=== PATIENT | female | born 2000 | race Caucasian/White ===

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

== ENCOUNTER 2020-04-28 15:10 | Emergency (ER) | payer OTHER, SELFPAY ==
[~2020-04-28] VITALS: Ht 167.6 cm; Wt 114.4 kg
[2020-04-28 15:10] VITALS: BP 133/83
[~2020-04-28 15:10] MED LIST changes: +ZOLO25TA PO
--- OUTSIDE RECORDS SUMMARY | 2020-04-28 15:17 | CCD ---
Author Author Adrian AJ (6.0)[facility] Address Unknown Phone Unavailable Care Team Providers Care Coil Maker Name Role Phone REJI OTT Unavailable Unavailable NONE, NONE Unavailable Unavailable AgnesfaheemvickeyJosueen Unavailable Allergies and Adverse Reactions Allergen Qualifier Severity Reaction(s) Comments Nystatin Problems Problem Onset Date Resolved Date Status Comments Active Hospital Admission Diagnosis Admission Diagnosis Onset Date Resolved Date Status Comment s No information available Medications Home Medications Details No information available Medications Administered Medication Orders Details Zofran ODT Oral 4 mg Ketorolac Tromethamine Intramuscular 30 mg Administered Medications Route Dose Bolus/Duration Rate/Du ration Additive/Diluents/Constituents Location Comments Date/Time Zofran ODT Oral PO 4 mg Given: 02/10/2020 00:43 Ketorolac Tromethamine Intramuscular IM 30 mg Given: 02/10/2020 00:44 Hospital Discharge Medications Hospital Discharge Prescribed Medication ondansetron 4 mg disintegrating tablet T gibran 1 tablet three times a day as needed for 5 days -- as needed for nausea. Dispense 15 tablet. Refills: 0. Substitution permitted. Procedures Procedure Date Performed Comments Injection Ketorolac [IM] Feb 09, 2020 Functional Status Functional and Cognitive Assessment Documentation Date Cond ition Status No impairments noted 02/09/2020 Active Immunizations Medication Dose/Units Lot# Exp. Date Property Underwriter Name Given No information available Results ELECTROCARDIOGRAM-EMERGENCY DEPT (MsgRcvd 02/09/2020 23:48) Final Results Test Result Flag Reference Range Vent Rate: 89 bpm RR Interval: 674 msec DE Interval: 122 msec QRS Duration: 86 msec QT Interval: 371 msec QTC Interval: 452 msec P-R-T [place]: 15 - 28 - 43 degrees Sinus rhythm...normal P axis, V-rate 50- 99 Low voltage, precordial leads...precordial leads <1.0mV Normal axis. Normal intervals. No sig. ST changes. Study Date: Electronically Signed By: REJI OTT DO Date: 02/09/2020 23:47 URINALYSIS (W/C+S IF INDICATED) ([place]: 02/09/2020 22:40) [place] [place] Final Results Test Result Flag Reference Range URINE COLOR YELLOW YELLOW URINE APPEARANCE CLOUDY AB CLEAR URINE SPECIFIC GRAVITY 1.010 1.003-1.0 35 URINE LEUKOCYTES NEGATIVE NEGATIVE URINE NITRITE NEGATIVE NEGATIVE URINE PH 7.5 5.0-8.0 URINE PROTEIN NEGATIVE NEGATIVE mg/dl URINE GLUCOSE NEGATIVE NEGATIVE mg/dl URINE KETONES NEGATIVE NEGATIVE mg/dl URINE UROBILINOGEN 0.2 NORMAL OR <1 mg/dl URINE BILIRUBIN NEGATIVE NEGATIVE URINE OCCULT BLOOD NEGATIVE NEGATIVE AMORPHOUS PRECIPITATES 3+ AB NEGATIVE hpf EPITHELIAL CELLS 0-1 0-5 hpf MUCOUS THREADS 1+ AB NEGATIVE hpf URINE C+S IF INDICATED PERFORMED NOT INDICATED , URINE (NEIDA: 02/09/2020 23:39) ([facility] [place] 02/09/2020 23:57) Final Results Test Result Flag Reference Range , URINE NEGATIVE NEGATIVE COMPREHENSIVE W/RATIOS (NEIDA: 02/09/2020 22:59) ([facility] [place] 02/09/2020 23:21) Final Results Test Result Flag Reference Range GLUCOSE 117 H 70-100 mg/dl BUN 11 4-18 mg/dl CREATININE, SERUM 0.57 L 0.60-1.20 mg/d l SODIUM 139 136-146 mmol/l POTASSIUM 4.1 3.5-5.3 mmol/l CHLORIDE 106 96-109 mmol/l CARBON DIOXIDE 25 20-32 mmol/l ALBUMIN 4.0 3.5-5.0 g/dl PROTEIN, TOTAL 6.9 6.3-8.6 g/dl CALCIUM 9.3 8.9-10.7 mg/dl ALKALINE PHOSPHATASE 89 50-130 U/l SGOT (AST) 13 5-30 U/l SGPT (ALT) 12 5-35 U/l BILIRUBIN, TOTAL 0.15 L 0.30-1.20 mg/dl BUN/CREATININE RATIO 19.3 6.0-20.0 GLOBULIN 2.9 2.3-3.5 g/dl ANION GAP 8.0 7.0-16.0 mmol/l OSMOLALITY (CALCULATED) 278 L 280-300 mos/kg A/G RATIO 1.4 1.0-2.0 LIPASE (NEIDA: 02/09/2020 22:59) [place] [place]:21[place] Final Results Test Result Flag Reference Range LIPASE 21 1-64 U/L EGFR (CALCULATED) (NEIDA: 02/09/2020 22:59) [place] [place]:21) Final Results Test Result Flag Reference Range EGFR 134 >59 mL/min/1.73m2 EGFR, -BHUTANESE 156 >59 mL/min/1.73m2 Note: Persistent reduction for 3 months or more in an eGFR <60 mL/min/1.73m2 defines CKD. Patients with eGFR values >=60 mL/min/1.73m2 may also have CKD if evidence of persistent proteinuria is present. Additional information may be found at www.kidney.org/professionals/kdoqi. RBC MORPHOLOGY SCAN (NEIDA: 02/09/2020 22:59) [place] [place] 23:24[place] Final Results Test Result Flag Reference Range RBC MORPHOLOGY SCAN PERFORMED CBC (NEIDA: 02/09/2020 22:59) [place] [place] 23:25) Final Results Test Result Flag Reference Range WBC 10.4 4.3-10.9 x10E3/u L RBC 5.14 3.80-5.30 x10E6/ uL HEMOGLOBIN 11.6 L 11.8-15.8 g/dl HEMATOCRIT 37.8 35.0-47.0 % MCV 73.5 L 82.0-98.0 fl MCH 22.6 L 27.5-33.5 pg MCHC 30.7 L 32.0-36.0 g/dl RDW 16.3 H 11.5-14.5 % PLATELET COUNT 323 (Slide estimate appears adequate) 130-400 x10E 3/uL MPV 9.1 8.6-12.6 fl SEGMENTED NEUTROPHILS 67.0 44.0-74.0 % BAND 0.0 0.0-4.0 % LYMPHOCYTES 27.0 15.0-45.0 % MONOCYTES 5.0 2.0-13.0 % EOSINOPHILS 1.0 0.0-6.0 % BASOPHILS 0.0 0.0-2.0 % NEUTROPHIL ABSOLUTE 7.0 1.4-7.0 x10 E3/uL LYMPHOCYTES ABSOLUTE 2.8 1.0-3.4 x10 E3/uL MONOCYTE ABSOLUTE 0.5 0.2-1.0 x10 E3/uL EOSINOPHIL ABSOLUTE 0.1 0.0-0.5 x10 E3/uL BASOPHIL ABSOLUTE 0.0 0.0-0.2 x10 E3/uL ANISOCYTOSIS 1+ AB OVALOCYTOSIS 1+ 1+ 1+ 1+ AB CT ABD & PELVIS W/O IV CONTRAST NO ORAL CONTRAST (MsgRcvd 02/09/2020 23:05) New Order Test Result Flag Reference Range US PELVIC TRANSVAGINAL (MsgRcvd 02/09/2020 23:56) Final Results Test Result Flag Reference Range PELVIC SONOGRAM Clinical History: Pelvic pain Technique: Transvaginal transverse abdominal pelvic ultrasound performed. Comparison: None. Quality assessment: Acceptable. Measurements: The uterus measures: 8.8 x 6 x 4.7 CM Right ovary measures: 3.5 x 2.5 cm Left ovary measures: 3 x 2 x 1.5 cm Endometrium: 15 mm FINDINGS: Blood flow seen to both ovaries Uterus: The uterus is homogeneous in echotexture and otherwise unremarkable Endometrium: The endometrial stripe is not thickened. Adnexa: There is no adnexal mass. Fluid: small to moderate amount of cul-de-sac fluid IMPRESSION: FREE FLUID IN THE PELVIC CUL-DE-SAC. Blood flow seen to both ovaries. Uterus and ovaries otherwise unremarkable. No evidence of mass Electronically Signed By: AFTAB SAEED MD Date: 02/09/2020 23:55 Social History Social History Element Description Effective Dates Sex Female 2000 Smoking never smoker Unknown Vital Signs * Weight: 113.3 kg (250 lb) at 02/09/2020 10:21:00 PM * Height: 167.6 cm (66 inches) at 02/09/2020 10:21:00 PM * BMI (Body Mass Index): 40.3 kg/m2 at 02/09/2020 10:21:00 PM Date/Time Blood Pressure Heart Rate Respiratory Rate Temperature O2 Saturation 02/10/2020 1:20:00 AM 115/89 mmHg 88 /minute 18 /minute 36.83 C 97% 02/10/2020 12:17:00 AM 36.83 C 02/09/2020 10:21:00 PM 118/74 mmHg 80 /minute 18 /minute 37.56 C 10 0% Hospital Discharge Instructions Instruction Thank you for visiting the [facility]. You have been evaluated today by REJI OTT DO for the following condition(s): Chronic right lower quadrant and left lower quadrant abdominal pain. The following test(s) and/or procedure(s) were performed during your visit today. Laboratory Tests CBC w DiffUrinalysis, Culture if indicatedComprehensive PanelLipasePregnancy Urine Qual Diagnostic Studies CT ABD/PEL w/o IV w/o Oral ContrastUS Pelvic TransvaginalCT abdomenCT pelvisEKG INSTRUCTIONS Prescription Medications: ondansetron 4 mg disintegrating tablet Take 1 tablet three times a day as needed for 5 days -- as needed for nausea. Dispense 15 tablet. Refills: 0. Substitution permitted. Pharmacy - [id number] - [address], [place] [id number]. . OTC Medications: Take ibuprofen (such as Advil, Motrin or Nuprin) according to label instructions. Available over the counter. Understanding of the discharge instructions verbalized by patient. Follow-up with: Asuncion Wilson M.D., OBN, , [facility], [address] [place] [address], [id number] Follow up in two days if not better. Reason for referral: evaluation. ADDITIONAL INFORMATION Unknown Causes of Abdominal Pain(Female) The exact cause of your belly (abdominal) pain is not clear. This does not mean that this is something to worry about. Everyone likes to know the exact cause of the problem. But sometimes with belly pain, there is no clear-cut cause, and this could be a good thing. The good news is that your symptoms can be treated, and you will feel better. Your condition does not seem serious now. But sometimes the signs of a serious problem may take more time to appear. For this reason,it is important for you to watch for any new symptoms, problems,or worsening of your condition. Over the next few days, the abdominal pain may come and go. Or it may be constant. Other common symptoms can include nausea and vomiting. Sometimes it can be difficult to tell if you feel nauseous. You may just feel bad and not connect that feeling to nausea. Constipation, diarrhea, and a fever may go along with the pain. The pain may continue even if treated correctly over the following days. Depending on how things go, sometimes the cause can become clear and may need moreor different treatment. Additional evaluations, medicines, or tests may also be needed. Home careYour healthcare provider may prescribe medicine for pain, symptoms, or an infection. Follow the healthcare provider's instructions for taking these medicines. General careRest as much as you can until your next exam. No strenuous activities.Try to find positions that ease discomfort. A small pillow placed on the abdomen may help relieve pain.Something warm on your abdomen (such as a heating pad) may help, but be careful not to burn yourself. DietDon'tforce yourself to eat, especially if having cramps, vomiting, or diarrhea.Water is important so you don't get dehydrated. Soup may also be good. Sports drinks may also help, especially if they are not too acidic. Don't drink sugary drinks as this can make things worse. Take liquids in small amounts. Don'tguzzle them.Caffeine sometimes makes the pain and cramping worse.Don't takedairy products if you have vomiting or diarrhea.Don't eat large amounts at a time. Wait a few minutes between bites.Eat a diet low in fiber (called a low- residue diet). Foods allowed include refined breads, white rice, fruit and vegetable juices without pulp, tender meats. These foods will pass more easily through the intestine.Don't havewhole-grain foods, whole fruits and vegetables, meats, seeds and nuts, fried or fatty foods, dairy, alcohol and spicy foods until your symptoms go away. Follow-up careFollow up with your healthcare provider, or as advised, if your pain does not begin to improve in the next 24 hours. Call [phone] if any of these occur: Trouble breathingConfusionFainting or loss of consciousnessRapid heart rateSeizure When to seek medical adviceCall your healthcare provider right away if any of these occur: Pain gets worse or moves to the right lower abdomenNew or worsening vomiting or diarrheaSwelling of the abdomenUnable to pass stool for more than3 daysFever of 100.4F (38C) or higher, or as directed by your healthcare provider.Blood in vomit or bowel movements (dark red or black color)Yellow color of eyes and skin (jaundice)Weakness, dizzinessChest, arm, back, neck, or jaw painUnexpected vaginal bleeding or missed periodCan't keep down liquids or water and you are getting dehydrated [id number] [employer]. [address] [place] [id number]. All rights reserved. This information is not intended as a substitute for professional medical care. Always follow your healthcare professional's instructions. Hospital Discharge Diagnoses Diagnosis Onset Date Resolved Date Status Comments Abdominal Pain Active Reason For Visit ABD PAIN Reason For Referral None Health Concerns Section Concern Status No information available Medical Equipments Implanted Device Manufacturing Date Expiration Date No information available Assessments Assessment You have been evaluated by JENA OTT, DO for the following conditions: Chronic right lower quadrant and left lower quadrant abdominal pain. The following test(s) and/or procedure(s) were performed during your visit today. Laboratory Tests: CBC w Diff, Comprehensive Panel, Lipase, Urine Qual, and Urinalysis, Culture if indicated Diagnostic Studies: CT ABD/PEL w/o IV w/o Oral Contrast, CT abdomen, CT pelvis, EKG, and US Pelvic Transvaginal Goals Observation Goal Status No information available Treatment Plan Planned Care Start Date No information available Encounters Encounter Diagnosis Location Date Abdominal Pain [facility] 02/09/2020
--- OUTSIDE RECORDS SUMMARY | 2020-04-28 15:19 | CCD ---
Author Author [facility] Organization [facility] Address Unknown Phone Unavailable Care Team Providers Care Comedian Name Role Phone GONZALEZ, JESS Unavailable Unavailable LUZ MARIA CONTI MD Unavailable Unavailable LUZ MARIA CONTI MD Unavailable Unavailable GALLITO, LUZ MARIA MD Unavailable Unavailable GALLITO, LUZ MARIA MD Unavailable Unavailable GALLITO, LUZ MARIA MD Unavailable Unavailable GALLITO, LUZ MARIA MD Unavailable Unavailable GALLITO, LUZ MARIA MD Unavailable Unavailable GALLITO, LUZ MARIA MD Unavailable Unavailable GALLITO, LUZ MARIA MD Unavailable Unavailable GALLITO, LUZ MARIA MD Unavailable Unavailable GALLITO, LUZ MARIA MD Unavailable Unavailable GALLITO, LUZ MARIA MD Unavailable Unavailable GALLITO, LU ZMARIA MD Unavailable Unavailable GALLITO, LUZ MARIA MD Unavailable Unavailable GALLITO, LUZ MARIA MD Unavailable Unavailable GALLITO, LUZ MARIA MD Unavailable Unavailable GALLITO, LUZ MARIA MD Unavailable Unavailable GALLITO, LUZ MARIA MD Unavailable Unavailable GALLITO, LUZ MARIA MD Unavailable Unavailable GALLITO, LUZ MARIA MD Unavailable Unavailable GALLITO, LUZ MARIA MD Unavailable Unavailable GALLITO, LUZ MARIA MD Unavailable Unavailable GALLITO, LUZ MARIA MD Unavailable Unavailable GALLITO, LUZ MARIA MD Unavailable Unavailable GALLITO, LUZ MARIA MD Unavailable Unavailable GALLITO, LUZ MARIA MD Unavailable Unavailable GALLITO, LUZ MARIA MD Unavailable Unavailable GALLITO, LUZ MARIA MD Unavailable Unavailable GALLITO, LUZ MARIA MD Unavailable Unavailable GALLITO, LUZ MARAI MD Unavailable Unavailable GALLITO, LUZ MARIA MD Unavailable Unavailable GALLITO, LUZ MARIA MD Unavailable Unavailable GALLITO, LUZ MARIA MD Unavailable Unavailable GALLITO, LUZ MARIA MD Unavailable Unavailable GALLITO, LUZ MARIA MD Unavailable Unavailable GALLITO, LUZ MARIA MD Unavailable Unavailable GALLITO, LUZ MARIA MD Unavailable Unavailable GALLITO, LUZ MARIA MD Unavailable Unavailable LERUM, EDY SALES ASSOCIATE FISHING Unavailable Unavailable LERUM, EDY SALES ASSOCIATE FISHING Unavailable Unavailable LERUM, EDY SALES ASSOCIATE FISHING Unavailable Unavailable LERUM, EDY SALES ASSOCIATE FISHING Unavailable Unavailable LERUM, EDY SALES ASSOCIATE FISHING Unavailable Unavailable LERUM, EDY SALES ASSOCIATE FISHING Unavailable Unavailable LERUM, EDY SALES ASSOCIATE FISHING Unavailable Unavailable LERUM, EDY SALES ASSOCIATE FISHING Unavailable Unavailable LERUM, EDY SALES ASSOCIATE FISHING Unavailable Unavailable LERUM, EDY SALES ASSOCIATE FISHING Unavailable Unavailable LERUM, EDY SALES ASSOCIATE FISHING Unavailable Unavailable LERUM, EDY SALES ASSOCIATE FISHING Unavailable Unavailable LERUM, EDY SALES ASSOCIATE FISHING Unavailable Unavailable LERUM, EDY SALES ASSOCIATE FISHING Unavailable Unavailable LERUM, EDY SALES ASSOCIATE FISHING Unavailable Unavailable LERUM, EDY SALES ASSOCIATE FISHING Unavailable Unavailable LERUM, EDY SALES ASSOCIATE FISHING Unavailable Unavailable LERUM, EDY SALES ASSOCIATE FISHING Unavailable Unavailable Shambo, J Elisa PA Unavailable Unavailable Shambo, J Elisa PA Unavailable Unavailable Shambo, J Elisa PA Unavailable Unavailable Shambo, J Elisa PA Unavailable Unavailable Shambo, J Elisa PA Unavailable Unavailable Shambo, J Elisa PA Unavailable Unavailable Shambo, J Elisa PA Unavailable Unavailable Shambo, J Elisa PA Unavailable Unavailable Shambo, J Elisa PA Unavailable Unavailable Shambo, J Elisa PA Unavailable Unavailable Shambo, J Elisa PA Unavailable Unavailable Shambo, J Elisa PA Unavailable Unavailable Shambo, J Elisa PA Unavailable Unavailable Shambo, J Elisa PA Unavailable Unavailable Shambo, J Elisa PA Unavailable Unavailable Shambo, J Elisa PA Unavailable Unavailable Shambo, J Elisa PA Unavailable Unavailable Shambo, J Elisa PA Unavailable Unavailable Shambo, J Elisa PA Unavailable Unavailable Shambo, J Elisa PA Unavailable Unavailable Shambo, J Elisa PA Unavailable Unavailable Shambo, J Elisa PA Unavailable Unavailable Shambo, J Elisa PA Unavailable Unavailable Shambo, J Elisa PA Unavailable Unavailable CUCA PRADO MD Unavailable Unavailable CUCA PRADO MD Unavailable Unavailable CUCA PRADO MD Unavailable Unavailable CUCA PRADO MD Unavailable Unavailable CUCA PRADO MD Unavailable Unavailable CUCA PRADO MD Unavailable Unavailable CUCA PRADO MD Unavailable Unavailable CUCA PRADO MD Unavailable Unavailable CUCA PRADO MD Unavailable Unavailable CUCA PRADO MD Unavailable Unavailable CUCA PRADO MD Unavailable Unavailable CUCA PRADO MD Unavailable Unavailable CUCA PRADO MD Unavailable Unavailable CUCA PRADO MD Unavailable Unavailable CUCA PRADO MD Unavailable Unavailable CUCA PRADO MD Unavailable Unavailable CUCA PRADO MD Unavailable Unavailable CUCA PRADO MD Unavailable Unavailable CUCA PRADO MD Unavailable Unavailable CUCA PRADO MD Unavailable Unavailable CUCA PRADO MD Unavailable Unavailable CUCA PRADO MD Unavailable Unavailable CUCA PRADO MD Unavailable Unavailable CUCA PRADO MD Unavailable Unavailable CUCA PRADO MD Unavailable Unavailable CUCA PRADO MD Unavailable Unavailable CUCA PRADO MD Unavailable Unavailable CUCA PRADO MD Unavailable Unavailable CUCA PRADO MD Unavailable Unavailable CUCA PRADO MD Unavailable Unavailable CUCA PRADO MD Unavailable Unavailable CUCA PRADO MD Unavailable Unavailable CUCA PRADO MD Unavailable Unavailable CUCA PRADO MD Unavailable Unavailable CUCA PRADO MD Unavailable Unavailable CUCA PRADO MD Unavailable Unavailable CUCA PRADO MD Unavailable Unavailable ALIASES , ORGANIZATION NPI Unavailable Unavailable ALIASES , ORGANIZATION NPI Unavailable Unavailable ALIASES , ORGANIZATION NPI Unavailable Unavailable ALIASES , ORGANIZATION NPI Unavailable Unavailable ALIASES , ORGANIZATION NPI Unavailable Unavailable ALIASES , ORGANIZATION NPI Unavailable Unavailable ALIASES , ORGANIZATION NPI Unavailable Unavailable ALIASES , ORGANIZATION NPI Unavailable Unavailable ALIASES , ORGANIZATION NPI Unavailable Unavailable ALIASES , ORGANIZATION NPI Unavailable Unavailable ALIASES , ORGANIZATION NPI Unavailable Unavailable ALIASES , ORGANIZATION NPI Unavailable Unavailable ALIASES , ORGANIZATION NPI Unavailable Unavailable ALIASES , ORGANIZATION NPI Unavailable Unavailable ALIASES , ORGANIZATION NPI Unavailable Unavailable ALIASES , ORGANIZATION NPI Unavailable Unavailable ALIASES , ORGANIZATION NPI Unavailable Unavailable ALIASES , ORGANIZATION NPI Unavailable Unavailable ALIASES , ORGANIZATION NPI Unavailable Unavailable ALIASES , ORGANIZATION NPI Unavailable Unavailable ALIASES , ORGANIZATION NPI Unavailable Unavailable ALIASES , ORGANIZATION NPI Unavailable Unavailable ALIASES , ORGANIZATION NPI Unavailable Unavailable ALIASES , ORGANIZATION NPI Unavailable Unavailable KAYLYN GARCIA MD ON NONE Unavailable Unavailable MD REJI GALVEZ DO Unavailable Unavailable AKCUCA Templeton MD Unavailable Unavailable AKCUCA Templeton MD Unavailable Unavailable AKCUCA Templeton MD Unavailable Unavailable AKCUCA Templeton MD Unavailable Unavailable AKCUCA Templeton MD Unavailable Unavailable AKCUCA Templeton MD Unavailable Unavailable AKCUCA Templeton MD Unavailable Unavailable AKCUCA Templeton MD Unavailable Unavailable AKCUCA Templeton MD Unavailable Unavailable AKCUCA Templeton MD Unavailable Unavailable AKCUAC Templeton MD Unavailable Unavailable AKCUCA Templeton MD Unavailable Unavailable AKCUCA Templeton MD Unavailable Unavailable AKCUCA Templeton MD Unavailable Unavailable AKCUCA Templeton MD Unavailable Unavailable AKCUCA Templeton MD Unavailable Unavailable AKCUCA Templeton MD Unavailable Unavailable AKCUCA Templeton MD Unavailable Unavailable AKCUCA Templeton MD Unavailable Unavailable AKCUCA Templeton MD Unavailable Unavailable AKCUCA Templeton MD Unavailable Unavailable AKCUCA Templeton MD Unavailable Unavailable AKCUCA Templeton MD Unavailable Unavailable AKCUCA Templeton MD Unavailable Unavailable AKCUCA Templeton MD Unavailable Unavailable CUCA PRADO MD Unavailable Unavailable CUCA PRADO MD Unavailable Unavailable CUCA PRADO MD Unavailable Unavailable CUCA PRADO MD Unavailable Unavailable CUCA PRADO MD Unavailable Unavailable CUCA PRADO MD Unavailable Unavailable CUCA PRADO MD Unavailable Unavailable CUCA PRADO MD Unavailable Unavailable CUCA PRADO MD Unavailable Unavailable CUCA PRADO MD Unavailable Unavailable CUCA PRADO MD Unavailable Unavailable CUCA PRADO MD Unavailable Unavailable Tyrell GARRETT MD Unavailable Unavailable Tyrell GARRETT MD Unavailable Unavailable Tyrell GARRETT MD Unavailable Unavailable Tyrell GARRETT MD Unavailable Unavailable Tyrell GARRETT MD Unavailable Unavailable Tyrell GARRETT MD Unavailable Unavailable Tyrell GARRETT MD Unavailable Unavailable Tyrell GARRETT MD Unavailable Unavailable Tyrell GARRETT MD Unavailable Unavailable Tyrell GARRETT MD Unavailable Unavailable Tyrell GARRETT MD Unavailable Unavailable Tyrell GARRETT MD Unavailable Unavailable Tyrell GARRETT MD Unavailable Unavailable Tyrell GARRETT MD Unavailable Unavailable Tyrell GARRETT MD Unavailable Unavailable SAMUEL, M NARGIS SALES ASSOCIATE FISHING Unavailable Unavailable SAMUEL, M NARGIS SALES ASSOCIATE FISHING Unavailable Unavailable SAMUEL, M NARGIS SALES ASSOCIATE FISHING Unavailable Unavailable SAMUEL, M NARGIS SALES ASSOCIATE FISHING Unavailable Unavailable SAMUEL, M NARGIS SALES ASSOCIATE FISHING Unavailable Unavailable SAMUEL, M NARGIS SALES ASSOCIATE FISHING Unavailable Unavailable SAMUEL, M NARGIS SALES ASSOCIATE FISHING Unavailable Unavailable SAMUEL, M NARGIS SALES ASSOCIATE FISHING Unavailable Unavailable SAMUEL, M NARGIS SALES ASSOCIATE FISHING Unavailable Unavailable SAMUEL, M NARGIS SALES ASSOCIATE FISHING Unavailable Unavailable SAMUEL, M NARGIS SALES ASSOCIATE FISHING Unavailable Unavailable SAMUEL, M NARGIS SALES ASSOCIATE FISHING Unavailable Unavailable SAMUEL, M NARGIS SALES ASSOCIATE FISHING Unavailable Unavailable SAMUEL, M NARGIS SALES ASSOCIATE FISHING Unavailable Unavailable SAMUEL, M NARGIS SALES ASSOCIATE FISHING Unavailable Unavailable SAMUEL, M NARGIS SALES ASSOCIATE FISHING Unavailable Unavailable SAMUEL, M NARGIS SALES ASSOCIATE FISHING Unavailable Unavailable SAMUEL, M NARGIS SALES ASSOCIATE FISHING Unavailable Unavailable SAMUEL, M NARGIS SALES ASSOCIATE FISHING Unavailable Unavailable SAMUEL, M NARGIS SALES ASSOCIATE FISHING Unavailable Unavailable SAMUEL, M NARGIS SALES ASSOCIATE FISHING Unavailable Unavailable SAMUEL, M NARGIS SALES ASSOCIATE FISHING Unavailable Unavailable SAMUEL, M NARGIS SALES ASSOCIATE FISHING Unavailable Unavailable GIUSTRA, Esteban WRIGHT MD Unavailable Unavailable GIUSTRA, Esteban WRIGHT MD Unavailable Unavailable GIUSTRA, Esteban WRIGHT MD Unavailable Unavailable GIUSTRA, Esteban WRIGHT MD Unavailable Unavailable GIUSTRA, Esteban WRIGHT MD Unavailable Unavailable GIUSTRA, Esteban WRIGHT MD Unavailable Unavailable GIUSTRA, Esteban WRIGHT MD Unavailable Unavailable GIUSTRA, Esteban WRIGHT MD Unavailable Unavailable GIUSTRA, Esteban WRIGHT MD Unavailable Unavailable GIUSTRA, Esteban WRIGHT MD Unavailable Unavailable GIUSTRA, Esteban WRIGHT MD Unavailable Unavailable GIUSTRA, Esteban WRIGHT MD Unavailable Unavailable GIUSTRA, Esteban WRIGHT MD Unavailable Unavailable GIUSTRA, Esteban WRIGHT MD Unavailable Unavailable GIUSTRA, Esteban WRIGHT MD Unavailable Unavailable GIUSTRA, Esteban WRIGHT MD Unavailable Unavailable GIUSTRA, Esteban WRIGHT MD Unavailable Unavailable GIUSTRA, Esteban WRIGHT MD Unavailable Unavailable GIUSTRA, Esteban WRIGHT MD Unavailable Unavailable GIUSTRA, Esteban WRIGHT MD Unavailable Unavailable GIUSTRA, Esteban WRIGHT MD Unavailable Unavailable GIUSTRA, Esteban WRIGHT MD Unavailable Unavailable GIUSTRA, Esteban WRIGHT MD Unavailable Unavailable GIUSTRA, Esteban WRIGHT MD Unavailable Unavailable GIUSTRA, Esteban WRIGHT MD Unavailable Unavailable GIUSTRA, Esteban WRIGHT MD Unavailable Unavailable GIUSTRA, Esteban WRIGHT MD Unavailable Unavailable GIUSTRA, Esteban WRIGHT MD Unavailable Unavailable GIUSTRA, Esteban WRIGHT MD Unavailable Unavailable GIUSTRA, Esteban WRIGHT MD Unavailable Unavailable GIUSTRA, Esteban WRIGHT MD Unavailable Unavailable GIUSTRA, Esteban WRIGHT MD Unavailable Unavailable GIUSTRA, Esteban WRIGHT MD Unavailable Unavailable GIUSTRA, Esteban WRIGHT MD Unavailable Unavailable GIUSTRA, Esteban WRIGHT MD Unavailable Unavailable GIUSTRA, Esteban WRIGHT MD Unavailable Unavailable GIUSTRA, Esteban WRIGHT MD Unavailable Unavailable GIUSTRA, Esteban WRIGHT MD Unavailable Unavailable GIUSTRA, Esteban WRIGHT MD Unavailable Unavailable GIUSTRA, Esteban WRIGHT MD Unavailable Unavailable GIUSTRA, Esteban WRIGHT MD Unavailable Unavailable GIUSTRA, Esteban WRIGHT MD Unavailable Unavailable GIUSTRA, Esteban WRIGHT MD Unavailable Unavailable GIUSTRA, Esteban WRIGHT MD Unavailable Unavailable GIUSTRA, Esteban WRIGHT MD Unavailable Unavailable GIUSTRA, Esteban WRIGHT MD Unavailable Unavailable GIUSTRA, Esteban WRIGHT MD Unavailable Unavailable GIUSTRA, Esteban WRIGHT MD Unavailable Unavailable GIUSTRA, Esteban WRIGHT MD Unavailable Unavailable Birchenough, R Cecilia DO Unavailable Unavailable Birchenough, R Cecilia DO Unavailable Unavailable Birchenough, R Cecilia DO Unavailable Unavailable Birchenough, R Cecilia DO Unavailable Unavailable Birchenough, R Cecilia DO Unavailable Unavailable Birchenough, R Cecilia DO Unavailable Unavailable Birchenough, R Cecilia DO Unavailable Unavailable Birchenough, R Cecilia DO Unavailable Unavailable Birchenough, R Cecilia DO Unavailable Unavailable Birchenough, R Cecilia DO Unavailable Unavailable Birchenough, R Cecilia DO Unavailable Unavailable Birchenough, R Cecilia DO Unavailable Unavailable Birchenough, R Cecilia DO Unavailable Unavailable Birchenough, R Cecilia DO Unavailable Unavailable MD HERMINIO BRYSON MD Unavailable Unavailable Shambo, J Elisa PA Unavailable Unavailable Shambo, J Elisa PA Unavailable Unavailable Shambo, J Elisa PA Unavailable Unavailable Shambo, J Elisa PA Unavailable Unavailable Shambo, J Elisa PA Unavailable Unavailable Shambo, J Elisa PA Unavailable Unavailable Shambo, J Elisa PA Unavailable Unavailable Shambo, J Elisa PA Unavailable Unavailable Shambo, J Elisa PA Unavailable Unavailable Shambo, J Elisa PA Unavailable Unavailable Shambo, J Elisa PA Unavailable Unavailable Shambo, J Elisa PA Unavailable Unavailable Shambo, J Elisa PA Unavailable Unavailable Shambo, J Elisa PA Unavailable Unavailable Shambo, J Elisa PA Unavailable Unavailable Shambo, J Elisa PA Unavailable Unavailable Shambo, J Elisa PA Unavailable Unavailable Shambo, J Elisa PA Unavailable Unavailable Shambo, J Elisa PA Unavailable Unavailable Shambo, J Elisa PA Unavailable Unavailable Shambo, J Elisa PA Unavailable Unavailable Shambo, J Elisa PA Unavailable Unavailable Shambo, J Elisa PA Unavailable Unavailable Shambo, J Elisa PA Unavailable Unavailable LERUM, EDY SALES ASSOCIATE FISHING Unavailable Unavailable LERUM, EDY SALES ASSOCIATE FISHING Unavailable Unavailable LERUM, EDY SALES ASSOCIATE FISHING Unavailable Unavailable LERUM, EDY SALES ASSOCIATE FISHING Unavailable Unavailable LERUM, EDY SALES ASSOCIATE FISHING Unavailable Unavailable LERUM, EDY SALES ASSOCIATE FISHING Unavailable Unavailable LERUM, EDY SALES ASSOCIATE FISHING Unavailable Unavailable LERUM, EDY SALES ASSOCIATE FISHING Unavailable Unavailable LERUM, EDY SALES ASSOCIATE FISHING Unavailable Unavailable LERUM, EDY SALES ASSOCIATE FISHING Unavailable Unavailable LERUM, EDY SALES ASSOCIATE FISHING Unavailable Unavailable LERUM, EDY SALES ASSOCIATE FISHING Unavailable Unavailable LERUM, EDY SALES ASSOCIATE FISHING Unavailable Unavailable LERUM, EDY SALES ASSOCIATE FISHING Unavailable Unavailable LERUM, EDY SALES ASSOCIATE FISHING Unavailable Unavailable LERUM, EDY SALES ASSOCIATE FISHING Unavailable Unavailable LERUM, EDY SALES ASSOCIATE FISHING Unavailable Unavailable LERUM, EDY SALES ASSOCIATE FISHING Unavailable Unavailable Re-disclosure Warning The records that you are about to access may contain information from federally-assisted alcohol or drug abuse programs. If such information is present, then the following federally mandated warning applies: This information has been disclosed to you from records protected by federal confidentiality rules (42 CFR part 2). The federal rules prohibit you from making any further disclosure of this information unless further disclosure is expressly permitted by the written consent of the person to whom it pertains or as otherwise permitted by 42 CFR part 2. A general authorization for the release of medical or other information is NOT sufficient for this purpose. The Federal rules restrict any use of the information to criminally investigate or prosecute any alcohol or drug abuse patient.The records that you are about to access may contain highly sensitive health information, the redisclosure of which is protected by Article 27-F of the [facility] Public Health law. If you continue you may have access to information: Regarding HIV / AIDS; Provided by facilities licensed or operated by the [facility] Office of Mental Health; or Provided by the [facility] Office for People With Developmental Disabilities. If such information is present, then the following [facility] mandated warning applies: This information has been disclosed to you from confidential records which are protected by state law. State law prohibits you from making any further disclosure of this information without the specific written consent of the person to whom it pertains, or as otherwise permitted by law. Any unauthorized further disclosure in violation of state law may result in a fine or skilled nursing sentence or both. A general authorization for the release of medical or other information is NOT sufficient authorization for further disc losure. Allergies and Adverse Reactions Type Description Substance Reaction Status Data Source(s ) Drug allergy Nystatin Nystatin [facility] DRUG INGREDI NYSTATIN NYSTATIN Rash [facility] No Known Environmental Allergies No Known Environmental Al lergies [facility] No Known Food Allergies No Known Food Allergies [facility] BRANDNAME NYSTATIN/TRIAMCINOLONE NYSTATIN/TRIAMCINOLONE [facility] Drug allergy nystatin nystatin [facility] Family History Family Member Name Family Member Gender Family Member Status Date o f Status Description Data Source(s) Unknown Female Problem [facility] ([facility]) Encounters Encounter Providers Location Date Indications Data Source(s ) Emergency Attender: MD REJI Hamilton: NONE NONE NPAdmitter: MD REJI GALVEZ DOConsultant: NONE NONE SALES ASSOCIATE FISHING OP-EMERGENCY DEPARTMENT 02/09/20 10:18:00 PM EST - 02/10/2020 01:35:00 AM EST [facility] Patient discharged. Outpatient Attender: NARGIS BAKER NP [facility] 02:15:00 PM EDT [facility] ([facility]) Outpatient Attender: ORGANIZATION N PI ALIASES Admitter: ORGANIZATION NPI ALIASES OP-OB 11/26/2019 01:58: 00 PM EDT - 11/26/2019 11:59:00 PM EDT [facility] Patient discharged. Outpatient Attender: ORGANIZATION N PI ALIASES Admitter: ORGANIZATION NPI ALIASES OP-OB 11/10/2019 01:28: 00 PM EDT - 11/10/2019 11:59:00 PM EDT [facility] Patient discharged. Inpatient Attender: ADRIANA WILSON MDAdmitter: ADRIANA PAZ MD OP-4S 09/26/2019 12:00:00 AM EDT - 09/28/2019 05:30:00 PM EDT [facility] Patient discharged. Outpatient Attender: NARGIS BAKER NP [facility] 01:45:00 PM EDT [facility] ([facility]) Outpatient Attender: CUCA PRADO MD [facility] 09/07 11:00:00 AM EDT [facility] ([facility]) Outpatient Attender: LUZ MARIA CONTI MD 09/16/2019 07:24:41 P M EDT [facility] Outpatient Attender: ORGANIZATION N PI ALIASES Admitter: ORGANIZATION NPI ALIASES OP-4S 09/12/2019 03:53: 00 PM EDT - 09/12/2019 03:58:00 PM EDT [facility] Patient discharged. Outpatient Attender: NARGIS BAKER NP [facility] 01:00:00 PM EDT [facility] ([facility]) Outpatient Attender: LUZ MARIA CONTI MD 09/06/2019 12:02:39 A M EDT [facility] Outpatient Attender: ORGANIZATION N PI ALIASES Admitter: ORGANIZATION NPI ALIASES OP-4S 08/26/2019 06:19: 00 PM EDT - 08/26/2019 06:43:00 PM EDT [facility] Patient discharged. Outpatient Attender: NARGIS BAKER NP [facility] 02:30:00 PM EDT [facility] ([facility]) Outpatient Referrer: EDY GAN NP 08/13/2019 12:00:00 AM [facility] Outpatient Referrer: EDY GAN NP 08/13/2019 12:00:00 AM [facility] Outpatient Referrer: EDY GAN NP 08/11/2019 12:00:00 AM [facility] Outpatient Referrer: EDY GAN NP 08/11/2019 12:00:00 AM [facility] Outpatient Attender: CUCA PRADO MDAdmitter: CUCA PRADO MD OP-4S 08/08/2019 02:17:00 AM EDT - 08/08/2019 04:30:00 AM EDT [facility] Patient discharged. Outpatient Attender: NARGIS BAKER NP [facility] 02:30:00 PM EDT [facility] ([facility]) Outpatient Attender: ORGANIZATION N PI ALIASES Admitter: ORGANIZATION NPI ALIASES OP-4S 07/28/2019 10:54: 00 PM EDT - 07/28/2019 11:43:00 PM EDT [facility] Patient discharged. Emergency Attender: MD HERMINIO BRYSON MDA ttender: NONE NONE NPAdmitter: MD HERMINIO BRYSON MD OP-EMERGENCY DEPARTMENT 07/17/2019 02:16:00 PM EDT - 07/17/2019 04:25:00 PM EDT [facility] Patient discharged. Outpatient Attender: EDY GAN NP [facility] 01:00:00 PM EDT [facility] ([facility]) Outpatient Attender: EDY GAN NP [facility] 01:15:00 PM EDT [facility] ([facility]) Outpatient Attender: EDY GAN NP [facility] 02:00:00 PM EDT [facility] ([facility]) Outpatient Attender: ORGANIZATION N PI ALIASES Admitter: ORGANIZATION NPI ALIASES OP-OP 06/09/2019 09:35: 00 AM EST - 09/26/2019 07:00:00 AM EDT [facility] Patient discharged. Outpatient Attender: EDY GAN NP [facility] 08:30:00 AM EST [facility] ([facility]) Outpatient Attender: Elisa Kc [facility] 03/12 09:50:00 AM EST [facility] Outpatient Attender: Elisa Kc PAConsultant: FELISA PHELPS MD 03/12/2019 09:31:00 AM EST - 03/12/2019 09:31:00 AM EST [facility] Outpatient Attender: Cecilia Heck DO 03/10/2019 03:26 :00 PM EST DATING [facility] DATING Outpatient Attender: LUZ MARIA GODOY 03/05/2019 11:23:01 A M EST [facility] Outpatient Attender: Cecilia Heck DO 03/04/2019 04:10 :00 PM EST Z32.01 [facility] Z32.01 Outpatient Attender: JESS Gusman nder: Elisa Kc PAConsultant: FELISA GARRETT MD 01/31/2019 12:38:00 PM EDT - 01/31/2019 12:38:00 PM EDT [facility] Outpatient Attender: JESS Gusman nder: Elisa Kc PAConsultant: FELISA GARRETT MD 01/30/2019 10:34:00 AM EDT - 01/30/2019 10:34:00 AM EDT [facility] Outpatient Attender: JESS Gusman nder: Elisa Kc PAConsultant: FELISA GARRETT MD 01/28/2019 04:24:00 PM EDT - 01/28/2019 04:24:00 PM EDT [facility] Outpatient Attender: Elisa Kc PAConsultant: FELISA PHELPS MD 01/27/2019 02:00:00 PM EDT - 01/27/2019 02:00:00 PM EDT [facility] Immunizations Vaccine Date Status Description Data Source(s) New in 2011. IIV4 07/09/2019 01:32:00 PM EDT completed [facility] ([facility]) Tdap 07/09/2019 01:32:00 PM EDT completed M [facility] ([facility]) Medications Medication Brand Name Start Date Product Form Dose Route Admi nistrative Instructions Pharmacy Instructions Status Indications Reaction Description Data Source(s) 11/10/2019 12:00:00 AM EDT ORAL active [facility] [facility] Escitalopram 10 MG Oral Tablet [Lexapro] Lexapro 11/10/2019 12:00: 00 AM EDT ORAL active MED[facility] ([facility]) Therapeutic Administration 07/17/2019 12:00:00 AM EDT completed [facility] ([facility]) Medication administered onsite Sertraline 50 MG Oral Tablet [Zoloft] Zoloft 07/09/2019 12:00:00 AM EDT ORAL completed [facility] ([facility]) ferrous sulfate 325 MG Oral Tablet Iron High-Potency 06/09/2019 12:00:00 AM EST ORAL active [facility] ( [facility]) Complete 06/09/2019 12:00:00 AM EST ORAL active [facility] ([facility]) + Complete Multi/Dha/Choline/Folate 03/12/2019 12:0 0:00 AM EST active [facility] ([facility]) Insurance Providers Payer name Policy type / Coverage type Policy ID Covered alliance party ID Covered alliance party's relationship to connelly Policy Connelly Plan Information SELF PAY ONLY [id number] SP [id number] WAYNE [id number] SP [id number] WAYNE [id number] SELF [id number] YOHO [facility] [id number] SELF [id number] Self Pay P [id number] S [id number] [facility] I [id number] Self [id number] MEDICAID M [id number] Self [id number] MEDICAID [id number] SP [id number] MEDICAID [id number] SP [id number] UNHC COMMUNITY PLAN MCDO [id number] SP [id number] MEDICAID [id number] SP [id number] UNHC AMERICHOICE XIX -HMO [id number] 18 [id number] UNHC COMMUNITY PLAN XIX [id number] Medicaid S [id number] S [id number] Managed Care - [facility] Community Plan P [id number] S [id number] Medicaid S [id number] S [id number] Managed Care - Community Plan [facility] P [id number] S [id number] D Managed Care [facility] O [id number] S [id number] Managed Care - Community Plan [facility] P [id number] S [id number] [facility] BCYO S [id number] S [id number] [id number] SP [id number] Self Pay P UNAVAILABLE S UNAVAILA BLE Managed Care - Community Plan [employer] O [id number] S [id number] Medicaid O [id number] S [id number] Managed Care - Community Plan [facility] P [id number] S [id number] Medicaid S [id number] S [id number] Managed Care - Community Plan [facility] P [id number] S [id number] MEDICAID M [id number] S [id number] [place] Medig[place] Part B [id number] Self [id number] [place] [id number] Self [id number] [facility] Rylee/MCR Medigap Part B [id number] Self [id number] [facility] Community Plan Medigap Part B [id number] Family Dependent [id number] [place] [id number] Family Dependent D [id number] MEDICAID M [id number] Self [id number] EXCELLUS I [id number] Self [id number] [facility](MCAID) O [id number] S [id number] [facility] Community Plan Medigap Part B [id number] Self [id number] [place] [id number] Self [id number] Managed Care - Community Plan [employer] P [id number] S [id number] United CR/Community [facility] Maintenance [facility] (HMO) [id number] Self [id number] [place] Medigap Part B [id number] Self [id number] Medicaid S [id number] S [id number] UN COMMUNITY PLAN MCDO [id number] SP [id number] Managed Care - Community Plan [facility] P [id number] S [id number] Medicaid P [id number] S [id number] [facility] MEDICAID [id number] Hannah [id number] Managed Care - Community Plan [facility] P [id number] S [id number] Medicaid S [id number] S [id number] Managed Care - Community Plan [facility] P [id number] S [id number] D Managed Care [facility] O [id number] S [id number] D Managed Care [employer] O [id number] S [id number] zzMedicaid FFS O [id number] S [id number] Medicaid Dental O [id number] S [id number] BLUE CROSS [place] PLAN [id number] SP [id number] Medicaid O [id number] S [id number] Managed Care BCBS O [id number] S [id number] Managed Care BCBS P [id number] S [id number] MEDICAID REF AMBULAT W [id number] S [id number] BLUE CHOICE OPTION O [id number] S [id number] MEDICAID [id number] S [id number] HMO BLUE [id number] SP [id number] MEDICAID-PHYSICIAN [id number] [facility] [id number] MEDICAID - CLINIC [id number] Problems, Conditions, and Diagnoses Code Display Name Description Problem Type Effective Dates Data Source(s) R10.32 Left lower quadrant pain LEFT LOWER QUADRANT PAIN Diag nosis 02/13/2020 03:23:00 PM [facility] R10.31 Right lower quadrant pain RIGHT LOWER QUADRANT PAIN Di agnosis 02/13/2020 03:23:00 PM [facility] F53.0 DEPRESSION DEPRESSION Diagnosis 12/02/2019 07:33:00 AM EDT [facility] Z13.89 Encounter for screening for other disord er ENCOUNTER FOR SCREENING FOR OTHER DISORDER Diagnosis 11/20/2019 07:59:00 AM EDT [facility] Z39.2 Encounter for routine follow- up ENCOUNTER FOR ROUTINE FOLLOW-UP Diagnosis 11/20/2019 07:59:00 AM EDT [facility] Z34.83 Encounter for supervision of other tad l , third trimester ENCOUNTER FOR SUPERVISION OF OTHER NORMAL , THIRD TRIMESTER Diagnosis 10/09/2019 01:59:00 PM EDT [facility] Z3A.38 38 weeks gestation of 38 WEEKS GESTATI ON OF Diagnosis 10/09/2019 01:58:00 PM EDT [facility] Z37.0 Single live SINGLE LIVE Diagnosis 10/06/2019 03:58:00 PM EDT [facility] Z3A.40 40 weeks gestation of 40 WEEKS GESTATI ON OF Diagnosis 10/06/2019 03:58:00 PM EDT [facility] Z91.19 Patient's noncompliance with other medic al treatment and regimen PATIENT'S NONCOMPLIANCE WITH OTHER MEDICAL TREATMENT AND REGIMEN Diagnosis 10/06/2019 03:58:00 PM EDT [facility] F90.9 Attention-deficit hyperactivity disorder , unspecified type ATTENTION- DEFICIT HYPERACTIVITY DISORDER, UNSPECIFIED TYPE Diagnosis 10/05 03:58:00 PM EDT [facility] O99.344 Other mental disorders complicating chil dbirth OTHER MENTAL DISORDERS COMPLICATING CHILDBIRTH Diagnosis 10/06/2019 03:58:00 PM EDT [facility] O70.1 Second degree perineal laceration during delivery SECOND DEGREE PERINEAL LACERATION DURING DELIVERY Diagnosis 10/06/2019 03:58:00 PM EDT [facility] Z67.41 Type O blood, Rh negative TYPE O BLOOD, RH NEGATIVE Di agnosis 10/06/2019 03:58:00 PM EDT [facility] O26.893 Other specified related condit ions, third trimester OTHER SPECIFIED RELATED CONDITIONS, THIRD TRIMESTER Diagnosis 10/06/2019 03:58:00 PM EDT [facility] O77.0 Labor and delivery complicated by meconi um in amniotic fluid LABOR AND DELIVERY COMPLICATED BY MECONIUM IN AMNIOTIC FLUID Diagnosis 03:58:00 PM EDT [facility] O47.1 False labor at or after 37 completed wee ks of gestation FALSE LABOR AT OR AFTER 37 COMPLETED WEEKS OF GESTATION Diagnosis 09/18/2019 03:50:00 PM EDT [facility] Z3A.35 35 weeks gestation of 35 WEEKS GESTATI ON OF Diagnosis 08/28/2019 11:27:00 AM T [facility] O36.8130 Decreased movements, t hird trimester, not applicable or unspecified DECREASED MOVEMENTS, THIRD TRIMEST ER, NOT APPLICABLE OR UNSPECIFIED Diagnosis 08/28/2019 11:27:00 AM T [facility] Z3A.33 33 weeks gestation of 33 WEEKS GESTATI ON OF Diagnosis 08/12/2019 12:41:00 PM T [facility] R10.12 Left upper quadrant pain LEFT UPPER QUADRANT PAIN Diag nosis 08/12/2019 12:41:00 PM EDT [facility] Z3A.31 31 weeks gestation of 31 WEEKS GESTATI ON OF Diagnosis 07/29/2019 10:41:00 AM EDT [facility] Z3A.30 30 weeks gestation of 30 WEEKS GESTATI ON OF Diagnosis 07/24/2019 11:11:00 AM EDT [facility] R51 Headache HEADACHE Diagnosis 07/24/2019 11:11:00 AM ED T [facility] O99.89 Other specified diseases and conditions complicating , childbirth and the puerperium OTHER SPECIFIED DISEASES AND CONDITIONS COMPLICATING , CHILDBIRTH AND THE PUERPERIUM Diagnosis 07/24/2019 11:11:00 AM EDT [facility] Z3A.26 26 weeks gestation of 26 WEEKS GESTATI ON OF Diagnosis 07/14/2019 08:53:00 AM EDT [facility] Z34.82 Encounter for supervision of other tad l , second trimester ENCOUNTER FOR SUPERVISION OF OTHER NORMAL , SECOND TRIMESTER Diagnosis 07/14/2019 08:50:00 AM EDT [facility] B370 Candidal stomatitis Candidal stomatitis Diagnosis 1 05/13/2018 09:31:00 AM [facility] J069 Acute upper respiratory infection, unspe cified Acute upper respiratory infection, unspecified Diagnosis 03/12/2019 09:31:00 AM Health system Surgeries/Procedures Procedure Description Date Indications Data Source(s) Care Only 11/10/2019 12:00:00 AM EDT [facility] ([facility]) Screening for clinical depression is doc umented as being positive and a follow- up plan is documented 11/10/2019 12:00:00 AM EDT [facility] ([facility]) Screening for clinical depression is doc umented as being positive and a follow- up plan is documented 11/10/2019 12:00:00 AM EDT [facility] ([facility]) Therapeutic Administration 07/17/2019 12:00:00 AM EDT [facility] ([facility]) Screening for clinical depression is doc umented as negative, a follow-up plan is not required 07/09/2019 12:00:00 AM EDT MEDEN T ([facility]) Screening for clinical depression is doc umented as negative, a follow-up plan is not required 07/09/2019 12:00:00 AM EDT MEDEN T ([facility]) Results ID Date Data Source [id number] 04/17/2020 12:00:00 AM EST [facility] Name Value Range Interpretation Code Description Data Socorro rce(s) Supporting Document(s) SARS-CoV-2 (COVID-19) RNA [Presence] in Respiratory specimen by LAURYN with probe detection Positive for 2019-nCoV [facility] This lab was ordered by [facility] and reported by [employer]. ID Date Data Source [id number] 04/08/2020 12:00:00 AM EST [facility] Name Value Range Interpretation Code Description Data Socorro rce(s) Supporting Document(s) SARS-CoV2 Rapid Antigen [facility] This lab [facility] and reported by [facility]. ID Date Data Source [id number] 02/09/2020 10:18:00 PM EST [facility] PAGE: [address] [place] [address] MEMOEsteban [id number] [facility] [place] [id number] [facility] REC NUM: [id number] : 2000 Med Reconciliation Patient: MEMO CHRISTIAN Medication Reconciliation Report [facility] HospitalVisitID: [id number] [place] [address] [phone], FRegistration Date/Time: 02/09/2020 22:18 Weight: 113.3 kgHeight/Length: 66 in.BMI: 40.3 ALLERGIES:Nystatin The patient's Home Medications are listed below: Not obtained.The source(s) of the original Home Medication information: Not obtained.The following Medications were given to the patient in the Emergency Department:Zofran ODT [PO] PO 4 mg, administered: 00:43 02/10/2020Ketorolac [IM] IM 30 mg, administered: 00:44 02/10/2020The following Medications were prescribed to the patient: ondansetron 4 mg disintegrating tablet Take 1 tablet three times a day as needed for 5 days -- as needed for nausea. Dispense 15 tablet. Refills: 0. Substitution permitted.Pharmacy - [id number] - [address], [place] [id number]. . -- REJI GALVEZ DOTake ibuprofen (such as Advil, Motrin or Nuprin) according to label instru ctions. Available over the counter. -- REJI GALVEZ DO Name Value Range Interpretation Code Description Data Socorro rce(s) Supporting Document(s) ID Date Data Source [id number] 02/09/2020 10:18:00 PM [facility] PAGE: [address] [place] [address] [address] [place] [address] , [place] [address] MED REC NUM: [id number] : 2000 Physician Discharge Report [facility] [address] [place] [address] Patient: MEMO CHRISTIAN : F : 2000 Age: 19yArrival: 02/09/2020 22:18 Departure: 02/10/2020 01:35 Disposition: Discharge Weight:113.3 kg. Height/Length:66 inches. BMI:40.3. Growth Chart Percentile: Weight:99.3%. Height/Length:74.9% Time Seen: 22:59 02/09/2020. Arrived- By ambulance. Historian- patient and EMS personnel. Supervisory Note: Documentation assistance provided by scribe. Information recorded by the scribe was done at my direction and has been reviewed and validated by me. HISTORY OF PRESENT ILLNESSChief Complaint: ABDOMINAL PAIN. It is described as "pain" and it is described as located in the right lower quadrant and left lower quadrant. This started 4 months and is still present. At its maximum, severity described as moderate. When seen in the E.D., severity described as moderate. Modifying factors- worsened by movement and deep breaths. Not relieved by anything. The patient has had nausea, loss of appetite and vomiting. (19 year old female was brought into the ED for the evaluation of abdominal pain onset 4 months. Pt states that about 2 days after giving she has had constant RLQ and LLQ abdominal pain. Pt states that the abdominal pain is worse with movement and deep breaths, she describes it as a "pulling." Pt states that she had a normal vaginal delivery. Pt states that she was seen by her OBGYN at her 6 week check up and was told everything was fine, but did not have any imaging. Pt states that the last few days the pain has increased and she has had decreased appetite. Pt also states that today she has been nauseous and vomited. Pts LMP was 2 weeks ago. Pt denies diarrhea, constipation, urinary problems, or any other symptoms at this time.). REVIEW OF SYSTEMS PAGE: [address] [place] [address] REC NUM: [id number] : 2000 No chills, sore throat, chest pain, cough or difficulty breathing. No diarrhea, urinary problems, back pain or headache. She has had fever, abdominal pain, nausea and vomiting. All other systems reviewed and are negative. PAST HISTORYSee nurses notes. Problems:. Allergies:Nystatin. SOCIAL HISTORYNever smoker. No alcohol use or drug use. FAMILY HISTORYNo significant family medical history. ADDITIONAL NOTESThe nursing notes have been reviewed. PHYSICAL EXAMVital Signs: 02/09/2020 22:21 BP: 118/74. MAP: 88. HR: 80. RR: 18. O2 saturation: 100%. Temp: 99.6 F. Have been reviewed. Appearance: Alert. Oriented X3. No acute distress. Eyes: Eyes normal inspection. ENT: Pharynx normal. Neck: Normal inspection. CVS: Normal heart rate and rhythm. Heart sounds normal. Pulses normal. Respiratory: No respiratory distress. Breath sounds normal. Abdomen: Soft. Moderate tenderness in the right lower quadrant and left lower quadrant. No guarding or rebound tenderness. Abnormal bowel sounds: high pitched. Skin: Skin warm and dry. Normal skin color. Extremities: No lower extremity edema. Neuro: Oriented X 3. LABS, X-RAYS, AND EKGAbdominal CT: No acute disease. Pelvic CT: No acute disease. Laboratory Tests: Laboratory tests have been ordered, with results reviewed and considered in the medical decision making process. Urine Qual: (NEIDA: 02/09/2020 22:30)( MsgRcvd 02/09/2020 23:59) Final results Test Result Flag Units (Reference) PAGE: [address] [place] [address] NUM: [id number] : 2000 , URINE NEGATIVE (NEGATIVE) CT ABD & Pelvis w/o IV Contrast w/o Oral Contrast: (NEIDA: 02/09/2020 23:05)( MsgRcvd 02/09/2020 23:05) New Order AUC Transaction ID : "CDS Override." , Override reason code : "MA" , Override reason description : "Emergency Medical Condition Susp/Confirm". Exam [id number] US Pelvic Transvaginal: (NEIDA: 02/09/2020 23:05)( MsgRcvd 02/09/2020 23:56) Final results Exam -- PELVIC SONOGRAM""Clinical History: Pelvic pain""Technique: Transvaginal transverse abdominal pelvic ultrasound performed.""Comparison: None.""Quality assessment: Acceptable.""Measurements:The uterus measures: 8.8 x 6 x 4.7 CMRight ovary measures: 3.5 x 2.5 cmLeft ovary measures: 3 x 2 x 1.5 cmEndometrium: 15 mm""FINDINGS:Blood flow seen to both ovariesUterus: The uterus is homogeneous in echotexture and otherwise unremarkableEndometrium: The endometrial stripe is not thickened.Adnexa: There is no adnexal mass.Fluid: small to moderate amount of cul-de-sac fluid""IMPRESSION: FREE FLUID IN THE PELVIC CUL-DE-SAC. Blood flow seen to bothovaries. Uterus and ovaries otherwise unremarkable. No evidence of mass""Electronically Signed By: DARLIN WARNER, MARTINDate: 02/09/2020 23:55 EGFR (CALCULATED): (NEIDA: 02/09/2020 22:55)( MsgRcvd 02/09/2020 23:21) Final results PAGE: [address] [place] [address] NUM: [id number] : 2000 Test Result Flag Units (Reference)ESTIMATED GFR (CALCULATED) EGFR 134 >59 mL/min/1.73m2 EGFR, -TUVALUAN 156 >59 mL/min/1.11o6Izwq: Persistent reduction for 3 months or more in an eGFR <60 mL/min/1.73m2 defines CKD. Patients with eGFR values >=60 mL/min/1.73m2 may also have CKD if evidence of persistent proteinuria is present. Additional information may be found at [email or web address]/[email or web address]. RBC MORPHOLOGY SCAN: (NEIDA: 02/09/2020 22:55)( MsgRcvd 02/09/2020 23:24) Final results Test Result Flag Units (Reference)RBC MORPHOLOGY SCAN PERFORMED ELECTROCARDIOGRAM-EMERGENCY DEPT: (NEIDA: 02/09/2020 22:19)( MsgRcvd 02/09/2020 23:48) Final results Test Result Flag Units (Reference)-- Vent Rate: 89 bpmRR Interval: 674 msecPR Interval: 122 msecQRS Duration: 86 msecQT Interval: 371 msecQTC Interval: 452 msecP-R-T [place]: 15 - 28 - 43 degrees""Sinus r hythm...normal P axis, V-rate 50- 99Low voltage, precordial leads...precordial leads <1.0mVNormal axis. Normal intervals. No sig. ST changes.""Study Date: ""Electronically Signed By: REJI GALVEZ DODate: 02/09/2020 23:47 PAGE: [address] [place] [address] [facility] NUM: [id number] : 2000 CBC w Diff: (NEIDA: 02/09/2020 22:55)( MsgRcvd 02/09/2020 23:26) Final results Test Result Flag Un its (Reference)WBC 10.4 x10E3/uL (4.3-10.9) RBC 5.14 x10E6/uL (3.80-5.30) HEMOGLOBIN 11.6 L g/dl (11.8-15.8) HEMATOCRIT 37.8 % (35.0-47.0) MCV 73.5 L fl (82.0- 98.0) MCH 22.6 L pg (27.5-33.5) MCHC 30.7 L g/dl (32.0-36.0) RDW 16.3 H % (11.5-14.5) PLATELET COUNT 323 x10E3/uL (130-400) (Slide estimate appears adequate) MPV 9.1 fl (8.6-12.6) SEGMENTED NEUTROPHILS 67.0 % (44.0-74.0) BAND 0.0 % (0.0-4.0) LYMPHOCYTES 27.0 % (15.0-45.0) MONOCYTES 5.0 % (2.0-13.0) EOSINOPHILS 1.0 % (0.0-6.0) BASOPHILS 0.0 % (0.0-2.0) NEUTROPHIL ABSOLUTE 7.0 x10E3/uL (1.4-7.0) LYMPHOCYTES ABSOLUTE 2.8 x10E3/uL (1.0-3.4) MONOCYTE ABSOLUTE 0.5 x10E3/uL (0.2-1.0) EOSINOPHIL ABSOLUTE 0.1 x10E3/uL (0.0-0.5) BASOPHIL ABSOLUTE 0.0 x10E3/uL PAGE: [address] [place] [address] , [place] [address] [facility] REC NUM: [id number] one : 2000 (0.0-0.2) HYPOCHROMIA 1+ AB ANISOCYTOSIS 1+ AB MICROCYTOSIS 1+ AB POIKILOCYTOSIS 1+ AB OVALOCYTOSIS 1+ AB Comprehensive Panel: (NEIDA: 02/09/2020 22:55)( MsgRcvd 02/09/2020 23:21) Final results Test Result Flag Units (Reference)GLUCOSE 117 H mg/dl (70-100) BUN 11 mg/dl (4-18) CREATININE, SERUM 0.57 L mg/dl (0.60-1.20) SODIUM 139 mmol/l (136-146) POTASSIUM 4.1 mmol/l (3.5-5.3) CHLORIDE 106 mmol/l (96-109) CARBON DIOXIDE 25 mmol/l (20-32) ALBUMIN 4.0 g/dl (3.5-5.0) PROTEIN, TOTAL 6.9 g/dl (6.3-8.6) CALCIUM 9.3 mg/dl (8.9-10.7) ALKALINE PHOSPHATASE 89 U/l (50-130) SGOT (AST) 13 U/l (5-30) SGPT (ALT) 12 U/l (5-35) BILIRUBIN, TOTAL 0.15 L mg/dl (0.30-1.20) BUN/CREATININE RATIO 19.3 (6.0-20.0) GLOBULIN 2.9 g/dl PAGE: [id number] [place] [address] [facility] REC NUM: [id number] : 2000 (2.3-3.5) ANION GAP 8.0 mmol/l (7.0-16.0) OSMOLALITY (CALCULATED) 278 L mos/kg (280-300) A/G RATIO 1.4 (1.0-2.0) Lipase: (NEIDA: 02/09/2020 22:55)( MsgRcvd 02/09/2020 23:21) Final results Test Result Flag Units (Reference)LIPASE 21 U/L (1-64) Urinalysis, Culture if indicated: (NEIDA: 02/09/2020 22:30)( MsgRcvd 02/09/2020 22:52) Final results Test Result Flag Units ( Reference)URINE COLOR YELLOW (YELLOW) URINE APPEARANCE CLOUDY AB (CLEAR) URINE SPECIFIC GRAVITY 1.010 (1.003-1.035) URINE LEUKOCYTES NEGATIVE (NEGATIVE) URINE NITRITE NEGATIVE (NEGATIVE) URINE PH 7.5 (5.0-8.0) URINE PROTEIN NEGATIVE mg/dl (NEGATIVE) URINE GLUCOSE NEGATIVE mg/dl (NEGATIVE) URINE KETONES NEGATIVE mg/dl (NEGATIVE) URINE UROBILINOGEN 0.2 mg/dl (NORMAL OR <1)URINE BILIRUBIN NEGATIVE (NEGATIVE) URINE OCCULT BLOOD NEGATIVE (NEGATIVE) URINE MICROSCOPIC PERFORMED Microscopic performed. Elements observed are listed. PAGE: [address] NUM: [id number] : 2000 If no elements are listed,the Microscopic is negative. AMORPHOUS PRECIPITATES 3+ AB hpf (NEGATIVE) EPITHELIAL CELLS 0-1 hpf (0-5) MUCOUS THREADS 1+ AB hpf (NEGATIVE) URINE C+S IF INDICATED NOT INDICATED . PROGRESS AND PROCEDURESCourse of Care: 01:09 02/10/20. patient's pain much improved after Toradol. Nausea better after Zofran ODT. Patient/family counseled. Disposition: Condition: stable. CLINICAL IMPRESSIONChronic right lower quadrant and left lower quadrant abdominal pain. INSTRUCTIONSPrescription Medications:ondansetron 4 mg disintegrating tablet Take 1 tablet three times a day as needed for 5 days -- as needed for nausea. Dispense 15 tablet. Refills: 0. Substitution permitted.[id number] - [address], [place] [id number]. . OTC Medications:Take ibuprofen (such as Advil, Motrin or Nuprin) according to label instructions. Available over the counter. Understanding of the discharge instructions verbalized by patient. Follow-up with: Adriana Wilson M.D., OBGYN, , [facility], [address] [place] [address], [address]Gdrfzr up in two days if not better. Reason for referral: evaluation. PAGE: 9[facility]IAN[address] [place] [address] [facility] REC NUM: [id number] : 2000 (Electronically signed by REJI GALVEZ DO 02/10/2020 01:11) Addenda for MEMO CHRISTIAN VisitID: [id number] Date: 02/09/2020 02/09/2020 23:39I, katie Paz, documenting for and in the presence of Dr. Galvez. The patient was evaluated during the global COVID-19 pandemic, and that diagnosis was suspected/considered upon their initial presentation. Their evaluation, treatme nt and testing was consistent with current guidelines for patients who present with complaints or symptoms that may be related to COVID-19. (Electronically signed by ALMAZ GOMES - 02/09/2020 23:39) Name Value Range Interpretation Code Description Data Socorro rce(s) Supporting Document(s) ID Date Data Source [id number] 02/10/2020 08:47:02 AM EST [facility] CT of the Abdomen and PelvisHISTORY: Rig ht lower quadrant and left lower quadrant pain. Rule outappendicitis and diverticulitis and ovarian cysts. Initial encounter. No traumaor treatment. Lower abdominal pain for four months reported moderate andworsened with movement and deep inspiration. Nausea and vomiting and loss ofappetite. Symptoms began two days .TECHNIQUE: Axial CT images were obtained through the abdomen and pelvis.Multiplanar reformatted images including coronal and sagittal reconstructedimaging presented. CT imaging was performed utilizing dose reduction techniquesincludin g automated exposure control and iterative reconstruction technique.ORAL CONTRAST: None.IV CONTRAST: None.COMPARISON: Pelvic ultrasound 02/09/2020.FINDINGS: Evaluation of the visceral organs is limited due to the lack ofintravenous contrast. Evaluation of the bowel is limited due to the lack of oralcontrast.Lower chest: The lung bases are clear. No pleural or pericardial effusion isseen.Liver: The unopacified liver is unremarkable.Gallbladder and Biliary Tree: No calcified gallstones are seen. There is nobiliary ductal dilatation.Pancreas: The unopacified pancreas is unremarkable.Spleen: The spleen is not enlarged. No focal splenic mass is seen.Adrenal glands: No adrenal mass is seen.Kidneys: No hydronephrosis. No radiopaque renal calculi.Bladder: The bladder is unremarkable.Vessels and lymph nodes: There is no abdominal aortic aneurysm. There is nogross pathologic lymphadenopathy on this noncontrast enhanced exam.Bowel and peritoneum: There is a normal appendix. There is no bowel obstructionor suspect bowel inflammatory change. There is a small amount of nonspecificfree fluid in the pelvis. There is no free air.Abdominal wall: Tiny fat-containing umbilical hernia.Pelvis: Small amount of free fluid.Bones: No gross acute osseous abnormality.IMPRESSION: SMALL AMOUNT OF NONSPECIFIC FREE FLUID WITHIN THE PELVIS WITH NOADDITIONAL ACUTE ABNORMALITY SEEN ON THIS NONCONTRAST ENHANCED EXAM.Electronically Signed By: KALYAN WARNER, DENISEDate: 02/10/2020 08:45 Name Value Range Interpretation Code Description Data Socorro rce(s) Supporting Document(s) ID Date Data Source [id number] 02/09/2020 11:56:37 PM EST [facility] PELVIC SONOGRAMClinical History: Pelvic painTechnique: Transvaginal transverse abdominal pelvic ultrasound performed.Comparison: None.Quality assessment: Acceptable.Measurements:The uterus measures: 8.8 x 6 x 4.7 CMRight ovary measures: 3.5 x 2.5 cmLeft ovary measures: 3 x 2 x 1.5 cmEndometrium: 15 mmFINDINGS:Blood flow seen to both ovariesUterus: The uterus is homogeneous in echotexture and otherwise unremarkableEndometrium: The endometrial stripe is not thickened.Adnexa: There is no adnexal mass.Fluid: small to moderate amount of cul-de-sac fluidIMPRESSION: FREE FLUID IN THE PELVIC CUL-DE-SAC. Blood flow seen to bothovaries. Uterus and ovaries otherwise unremarkable. No evidence of massElectronically Signed By: DARLIN WARNER [facility]: 02/09/2020 23:55 Name Value Range Interpretation Code Description Data [facility] rce(s) Supporting Document(s) ID Date Data Source [id number] 02/09/2020 11:25:00 PM EST [facility] Name Value Range Interpretation Code Description Data [facility] rce(s) Supporting Document(s) WBC 10.4 x10E3/uL 4.3-10.9 [facility] spital RBC 5.14 x10E6/uL 3.80-5.30 [facility] H[facility] 11.6 g/dl 11.8-15.8 L [facility] ciarra HEMATOCRIT 37.8 % 35.0-47.0 [facility] MCV 73.5 fl 82.0-98.0 L [facility] MCH 22.6 pg 27.5-33.5 L [facility] MCHC 30.7 g/dl 32.0-36.0 L [facility] RDW 16.3 % 11.5-14.[address] [facility] al PLATELET COUNT 323 x10E3/uL 130-400 [facility] (Slide estimate appears adequate) MPV 9.1 fl 8.6-12.6 [facility] SEGMENTED NEUTROPHILS 67.0 % 44.0-74.0 [facility] BAND 0.0 % 0.0-4.0 [facility] LYMPHOCYTES 27.0 % 15.0-45.0 [facility] MONOCYTES 5.0 % 2.0-13.0 [facility] EOSINOPHILS 1.0 % 0.0-6.0 [facility] BASOPHILS 0.0 % 0.0-2.0 [facility] NEUTROPHIL ABSOLUTE 7.0 x10E3/uL 1.4-7.0 [facility] LYMPHOCYTES ABSOLUTE 2.8 x10E3/uL 1.0-3.4 [facility] MONOCYTE ABSOLUTE 0.5 x10E3/uL 0.2-1.0 [facility] EOSINOPHIL ABSOLUTE 0.1 x10E3/uL 0.0-0.5 [facility] BASOPHIL ABSOLUTE 0.0 x10E3/uL 0.0-0.2 [facility] HYPOCHROMIA 1+ A [facility] ANISOCYTOSIS 1+ A [facility] pital MICROCYTOSIS 1+ A [facility] pital POIKILOCYTOSIS 1+ A [facility] ospital OVALOCYTOSIS 1+ A [facility] pital R [facility], Dept of [facility] [address] [place] [address] * ID Date Data Source [id number] 02/09/2020 11:24:00 PM EST [facility] Name Value Range Interpretation Code Description Data Socorro rce(s) Supporting Document(s) RBC MORPHOLOGY SCAN PERFORMED [facility], Dept of [facility] [address] [place] [address] * ID Date Data Source [id number] 02/09/2020 11:21:00 PM [facility] Name Value Range Interpretation Code Description Data [place] rce(s) Supporting Document(s) GLUCOSE 117 mg/dl 70-100 H [facility] BUN 11 mg/dl 4-18 [facility] CREATININE, SERUM 0.57 mg/dl 0.60-1.20 L [facility] SODIUM 139 mmol/l 136-146 [facility] POTASSIUM 4.1 mmol/l 3.5-5.3 [facility] CHLORIDE 106 mmol/l 96-109 [facility] CARBON DIOXIDE 25 mmol/l 20-32 [facility] ospital ALBUMIN 4.0 g/dl 3.5-5.0 [facility] PROTEIN, TOTAL 6.9 g/dl 6.3-8.6 [facility] ospital CALCIUM 9.3 mg/dl 8.9-10.7 [facility] ALKALINE PHOSPHATASE 89 U/l 50-130 [facility] SGOT (AST) 13 U/l 5-30 [facility] SGPT (ALT) 12 U/l 5-35 [facility] BILIRUBIN, TOTAL 0.15 mg/dl 0.30-1.20 L [facility] BUN/CREATININE RATIO 19.3 6.0-20.0 [facility] GLOBULIN 2.9 g/dl 2.3-3.5 [facility] ANION GAP 8.0 mmol/l 7.0-16.0 [facility] ciarra OSMOLALITY (CALCULATED) 278 mos/kg 280-300 L [facility] A/G RATIO 1.4 1.0-2.0 [facility] R [facility], Dept of [address] [address] * ID Date Data Source [id number] 02/09/2020 11:21:00 PM [facility] Name Value Range Interpretation Code Description Data [place] rce(s) Supporting Document(s) ESTIMATED GFR (CALCULATED) [facility] EGFR 134 [facility] >59 mL/min/1.73m2 EGFR, -TUVALUAN 156 [facility] >59 mL/min/1.43r4Lhji: Persistent reduction for 3 months or more in an eGFR <60 mL/min/1.73m2 defines CKD. Patients with eGFR values >=60 mL/min/1.73m2 may also have CKD if evidence of persistent proteinuria is present. Additional information may be found at [email or web address]. R [facility], Dept of [address] [address] * ID Date Data Source [id number] 02/09/2020 11:21:00 PM [facility] Name Value Range Interpretation Code Description Data [facility] rce(s) Supporting Document(s) LIPASE 21 U/L 1-64 [facility] R [facility], Dept of [address] [address] * ID Date Data Source [id number] 02/09/2020 11:57:00 PM [facility] Name Value Range Interpretation Code Description Data [place] rce(s) Supporting Document(s) , URINE NEGATIVE NEGATIVE [facility], Dept of [address] [address] * ID Date Data Source [id number] 02/09/2020 10:50:00 PM [facility] Name Value Range Interpretation Code Description Data [place] rce(s) Supporting Document(s) URINE COLOR YELLOW YELLOW [facility] URINE APPEARANCE CLOUDY CLEAR A [facility] URINE SPECIFIC GRAVITY 1.010 1.003-1.035 [facility] URINE LEUKOCYTES NEGATIVE NEGATIVE [facility] URINE NITRITE NEGATIVE NEGATIVE [facility] spital URINE PH 7.5 5.0-8.0 [facility] URINE PROTEIN NEGATIVE mg/dl NEGATIVE [facility] URINE GLUCOSE NEGATIVE mg/dl NEGATIVE [facility] URINE KETONES NEGATIVE mg/dl NEGATIVE [facility] URINE UROBILINOGEN 0.2 mg/dl NORMAL OR <1 [facility] URINE BILIRUBIN NEGATIVE NEGATIVE [facility] URINE OCCULT BLOOD NEGATIVE NEGATIVE [facility] URINE MICROSCOPIC PERFORMED [facility] Microscopic performed . Elements observed are listed. If no elements are listed,the Microscopic is negative. AMORPHOUS PRECIPITATES 3+ hpf NEGATIVE A [facility] EPITHELIAL CELLS 0-1 hpf 0-5 [facility] MUCOUS THREADS 1+ hpf NEGATIVE A [facility] ospital URINE C+S IF INDICATED NOT INDICATED [facility], [place] [address] * ID Date Data Source [id number] 02/10/2020 07:24:29 AM EST [facility] ADDENDUM Vent Rate: 89 bpmRR Interval: 674 msecPR Interval: 122 msecQRS Duration: 86 msecQT Interval: 371 msecQTC Interval: 452 msecP-R-T [place]: 15 - 28 - 43 degreesSinus rhythm...normal P axis, V-rate 50- 99Normal axis.Normal intervals.No sig. ST changes.Poor quality electrocardiogramStudy Date: [id number] Signed By: LORNA WARNER, RUSSELLDate: 02/10/2020 07:24ORIGINALVent Rate: 89 bpmRR Interval: 674 msecPR Interval: 122 msecQRS Duration: 86 msecQT Interval: 371 msecQTC Interval: 452 msecP-R-T [place]: 15 - 28 - 43 degreesSinus rhythm...normal P axis, V-rate 50- 99Low voltage, precordial leads...precordial leads <1.0mVNormal axis. Normal intervals. No sig. ST changes.Study Date: [id number] Signed By: REJI GALVEZ DODate: 02/09/2020 23:47 Name Value Range Interpretation Code Description Data [facility] rce(s) Supporting Document(s) ID Date Data Source [id number] 11/10/2019 01:45:00 PM EDT [facility] ([facility]) Name Value Range Interpretation Code Description Data [place] rce(s) Supporting Document(s) Chlamydia/GC, Lauryn Laboratory test result [facility] ([facility]) Source- Endocerv/Vag Swab Laboratory test result [facility] ([facility]) Neisseria Gonorrhoeae,Lauryn Laboratory test result [facility] ([facility]) [facility] [address] [place] [phone] Chlamydia Trachomatis,Lauryn Laboratory test result [facility] ([facility]) RN-[facility] [address] [place] [phone] ID Date Data Source [id number] 11/11/2019 09:06:00 PM EDT [facility] Name Value Range Interpretation Code Description Data [place] rce(s) Supporting Document(s) CHLAMYDIA/GC, LAURYN SEE BELOW [facility] SOURCE- ENDOCERV/VAG SWAB * [facility] CHLAMYDIA TRACHOMATIS,LAURYN Negative Negative [facility] RN-[facility] [address] [place] [phone] NEISSERIA GONORRHOEAE,LAURYN Negative Negative [facility] RN-[facility] [address] [place] [phone] ID Date Data Source [id number] 09/27/2019 07:12:00 AM EDT [facility] PATIENT: ANAHI HAMPTON LOC: [id number],2BILL# : [id number] : 2000 SEX: FORDERED BY: KRANTHI WRIGHT ORDERED : 09/27/2019 06:35 COLLECTED: 09/27/2019 05:20ORDER : [id number] RECEIVED : 09/27/2019 05:39 TEST NAME RESULTMILA/IRAJ VANEGAS NEG 09/27/19 07:12 EJB Name Value Range Interpretation Code Description Data [facility] rce(s) Supporting Document(s) ID Date Data Source [id number] 09/27/2019 07:11:00 AM EDT [facility] PATIENT: ANAHI HAMPTON LOC: [id number],2BILL# : [id number] : 2000 SEX: FORDERED BY: KRANTHI WRIGHT ORDERED : 09/26/2019 23:30 COLLECTED: 09/27/2019 05:20ORDER : [id number] RECEIVED : 09/27/2019 05:39 TEST NAME RESULTABO TYPE O 09/27/19 07:11 EJBRH TYPE NEG 09/27/19 07:11 EJBANTIBODY SCREEN NEG 09/27/19 07:11 EJB Name Value Range Interpretation Code Description Data [place] rce(s) Supporting Document(s) ID Date Data Source [id number] 09/27/2019 05:46:00 AM EDT [facility] Name Value Range Interpretation Code Description Data [place] rce(s) Supporting Document(s) WBC 12.0 x10E3/uL 4.3-10.9 H [facility] spital RBC 3.58 x10E6/uL 3.80-5.30 L [facility] spital HEMOGLOBIN 8.9 g/dl 11.8-15.8 L [facility] ciarra HEMATOCRIT 28.9 % 35.0-47.0 L [facility]ra MCV 80.7 fl 82.0-98.[address] [facility] MCH 24.9 pg 27.5-33.[address] [facility] MCHC 30.8 g/dl 32.0-36.[address] [facility] RDW 14.9 % 11.5-14.[address] [facility] al PLATELET COUNT 271 x10E3/uL 130-400 [facility] MPV 9.8 fl 8.6-12.6 [facility] al SEGMENTED NEUTROPHILS 74.3 % 44.0-74.0 H [facility] LYMPHOCYTES 18.9 % 15.0-45.0 [facility] MONOCYTES 5.8 % 2.0-13.0 [facility] EOSINOPHILS 0.8 % 0.0-6.0 [facility] BASOPHILS 0.2 % 0.0-2.0 [facility] NEUTROPHIL ABSOLUTE 8.9 x10E3/uL 1.4-7.0 H [facility] LYMPHOCYTES ABSOLUTE 2.3 x10E3/uL 1.0-3.4 [facility] MONOCYTE ABSOLUTE 0.7 x10E3/uL 0.2-1.0 [facility] EOSINOPHIL ABSOLUTE 0.1 x10E3/uL 0.0-0.5 [facility] BASOPHIL ABSOLUTE 0.0 x10E3/uL 0.0-0.2 [facility] R [facility], [place] [address] * ID Date Data Source [id number] 09/27/2019 07:15:00 AM EDT [facility] PATIENT: ANAHI HAMPTON LOC: [id number],2BILL# : [id number] : 2000 SEX: FORDERED BY: KRANTHI WRIGHT ORDERED : 09/26/2019 23:30 COLLECTED: 09/27/2019 05:00ORDER : [id number] RECEIVED : TEST NAME RESULTRh IG-full dose [id number] issued 1 vial 09/27/19 07:15 -- Name Value Range Interpretation Code Description Data [facility] rce(s) Supporting Document(s) ID Date Data Source [id number] 09/26/2019 08:43:00 AM EDT [facility] Name Value Range Interpretation Code Description Data [place] rce(s) Supporting Document(s) SARS coronavirus 2 RNA [facility] This lab was ordered by [facility] a nd reported by [facility]. ID Date Data Source [id number] 09/26/2019 09:48:00 AM EDT [facility] C [facility] [address] [place], [place] [address] r [facility], DEPT OF PATH [address] [place] [address] Site: RNAS Collected: 09/26/19 08:[id number] FINAL 09/26/19 09:48 R009/26/19 NEGATIVE Expected Value: NEGATIVE by [facility] Name Value Range Interpretation Code Description Data [place] rce(s) Supporting Document(s) ID Date Data Source [id number] 09/26/2019 09:08:00 AM EDT [facility] PATIENT: ANAHI HAMPTON LOC: Blacna Diaz,1BILL# : [id number] : 2000 SEX: FORDERED BY: KRANTHI WRIGHT ORDERED : 09/26/2019 06:44 COLLECTED: 09/26/2019 06:45ORDER : [id number] RECEIVED : 09/26/2019 06:50 TEST NAME RESULTABO TYPE O 09/26/19 09:02 JSS1RH TYPE NEG 09/26/19 09:02 [id number] SCREEN NEG 09/26/19 09:08 JSS1 - Name Value Range Interpretation Code Description Data [facility] rce(s) Supporting Document(s) ID Date Data Source [id number] 09/26/2019 07:37:00 AM EDT [facility] Name Value Range Interpretation Code Description Data [place] rce(s) Supporting Document(s) RPR NON-REACTIVE NON-REACTIVE [facility] R [facility], [place] [address] * ID Date Data Source [id number] 09/26/2019 07:28:00 AM EDT [facility] Name Value Range Interpretation Code Description Data [place] rce(s) Supporting Document(s) ESTIMATED GFR (CALCULATED) [facility] EGFR 152 [facility] >59 mL/min/1.73m2 EGFR, -TUVALUAN 176 [facility] >59 mL/min/1.68s9Mjvx: Persistent reduction for 3 months or more in an eGFR <60 mL/min/1.73m2 defines CKD. Patients with eGFR values >=60 mL/min/1.73m2 may also have CKD if evidence of persistent proteinuria is present. Additional information may be found at [email or web address]. R [facility], Dept of Path [address] [place] [address] * ID Date Data Source [id number] 09/26/2019 07:28:00 AM EDT [facility] Name Value Range Interpretation Code Description Data [place] rce(s) Supporting Document(s) URIC ACID 4.0 mg/dl 3.0-5.9 [facility] Therapeutic target for gout patients: <6.0 mg/dl R [facility], [facility] [address] [place] [address] * ID Date Data Source [id number] 09/26/2019 07:28:00 AM EDT [facility] Name Value Range Interpretation Code Description Data [place] rce(s) Supporting Document(s) GLUCOSE 86 mg/dl 70-100 [facility] BUN 9 mg/dl 4-18 [facility] CREATININE, SERUM 0.40 mg/dl 0.60-1.20 L [facility] SODIUM 135 mmol/l 136-146 L [facility] POTASSIUM 4.1 mmol/l 3.5-5.3 [facility] CHLORIDE 102 mmol/l 96-109 [facility] CARBON DIOXIDE 22 mmol/l 20-32 [facility] ospital ALBUMIN 3.6 g/dl 3.1-4.8 [facility] PROTEIN, TOTAL 6.7 g/dl 6.3-8.6 [facility] ospital CALCIUM 9.5 mg/dl 8.9-10.7 [facility] ALKALINE PHOSPHATASE 160 U/l 50-130 H [facility] SGOT (AST) 12 U/l 5-30 [facility] SGPT (ALT) 8 U/l 5-35 [facility] BILIRUBIN, TOTAL 0.20 mg/dl 0.30-1.20 L [facility] BUN/CREATININE RATIO 22.5 6.0-20.0 H [facility] GLOBULIN 3.1 g/dl 2.3-3.5 [facility] ANION GAP 11.0 mmol/l 7.0-16.0 [facility] ital OSMOLALITY (CALCULATED) 268 mos/kg 280-300 L [facility] A/G RATIO 1.2 1.0-2.0 [facility] al R [facility], Dept of [facility] [address] [place] [address] * ID Date Data Source [id number] 09/26/2019 07:10:00 AM EDT [facility] Name Value Range Interpretation Code Description Data Socorro rce(s) Supporting Document(s) FIBRINOGEN 614 mg/dl 226-442 H [facility] ciarra R [facility], Dept of [facility] [address] [place] [address] * ID Date Data Source [id number] 09/26/2019 07:10:00 AM EDT [facility] Name Value Range Interpretation Code Description Data [place] rce(s) Supporting Document(s) PT (NO THERAPY/UNKNOWN) 12.7 seconds 11.7-14.5 [facility] INR 1.0 [facility] IN TERNATIONAL NORMALIZED RATIO(INR) INDICATIONS INR RANGE PATIENTS NOT ON ANTICOAGULANT THERAPY * DEEP VENOUS THROMBOSIS 2.0-3.0 PULMONARY EMBOLISM 2.0-3.0 ATRIAL FIBRILLATION 2.0-3.0 PROPHYLAXIS: 2.0-3.0 HIGH-RISK SURGERY TISSUE HEART VALVES ATRIAL FIBRILLATION ACUTE MYOCARDIAL INFARCTION VALVULAR HEART DISEASE MECHANICAL PROSTHETIC VALVE 2.5-3.5* USE OF INR VALUES SHOULD BE LIMITED TO PATIENTS WHO ARE ON STABLE ORAL ANTICOAGULANT THERAPY. AN INR ABOVE 5.0-5.5 APPEARS TO BE ASSOCIATED WITH AN UNACCEPTABLY HIGH RISK OF BLEEDING. R [facility], Dept of Path [address] [place] [address] * ID Date Data Source [id number] 09/26/2019 07:10:00 AM EDT [facility] Name Value Range Interpretation Code Description Data [place] rce(s) Supporting Document(s) PTT 28.4 seconds 23.7-35.5 [facility] pital R [facility], Dept of [address] [address] * ID Date Data Source [id number] 09/26/2019 07:06:00 AM EDT [facility] Name Value Range Interpretation Code Description Data [place] rce(s) Supporting Document(s) CREAT, RANDOM URINE 96.77 mg/dl [facility] Reference ranges are not available for random urines. PROTEIN, RANDOM URINE 19.3 mg/dl [facility] Reference ranges are not available for random urines. PROTEIN/CREAT RATIO 0.20 ratio [facility] R [facility], [facility] [address] [place] [address] * ID Date Data Source [id number] 09/26/2019 06:55:00 AM EDT [facility] Name Value Range Interpretation Code Description Data [place] rce(s) Supporting Document(s) WBC 13.3 x10E3/uL 4.3-10.9 H [facility] spital RBC 4.59 x10E6/uL 3.80-5.30 [facility] HEMOGLOBIN 11.4 g/dl 11.8-15.8 L [facility] HEMATOCRIT 36.4 % 35.0-47.0 [facility] MCV 79.3 fl 82.0-98.[address] [facility] al MCH 24.8 pg 27.5-33.[address] [facility] MCHC 31.3 g/dl 32.0-36.[address] [facility] RDW 14.9 % 11.5-14.[address] [facility] al PLATELET COUNT 319 x10E3/uL 130-400 [facility] MPV 9.6 fl 8.6-12.6 [facility] al R [facility], Dept of [address] [address] * ID Date Data Source [id number] 09/11/2019 04:07:00 PM EDT [facility] ([facility]) Name Value Range Interpretation Code Description Data [place] rce(s) Supporting Document(s) HIV 1+2 Ab+HIV1 p24 Ag [Presence] in Serum or Plasma b y Immunoassay Laboratory test result [facility] ([facility]) Charted. ID Date Data Source [id number] 09/11/2019 04:07:00 PM EDT [facility] ([facility]) Name Value Range Interpretation Code Description Data [place] rce(s) Supporting Document(s) Leukocytes [#/volume] in Blood by Automated count 9.9 x10E3/uL 4.3-10 .9 [facility] ([facility]) Charted. Erythrocytes [#/volume] in Blood by Automated count 4.44 x10E6/uL 3.8 0-5.30 [facility] ([facility]) Charted. Hemoglobin [Mass/volume] in Blood 11.2 g/dL 11.8-15.8 Below low nor mal [facility] ([facility]) Charted. Hematocrit [Volume Fraction] of Blood by Automated count 36.0 % 3 5.0-47.0 [facility] ([facility]) Charted. Erythrocyte mean corpuscular volume [Entitic volume] by Auto mated count 81.1 fl 82.0-98.0 Below low normal [facility] ([facility]) Charted. Erythrocyte mean corpuscular hemoglobin [Entitic mass] by Automated count 25.2 pg 27.5-33.5 Below low normal [facility] ([facility]) Charted. Erythrocyte distribution width [Ratio] by Automated count 14.5 % 11.5-14.5 [facility] ([facility]) Charted. Erythrocyte mean corpuscular hemoglobin concentration [Mass/volume] by Automated count 31.1 g/dL 32.0-36.0 Below low normal [facility] ([facility]) Charted. Platelets [#/volume] in Blood by Automated count 298 x10E3/uL 130-400 [facility] ([facility]) Charted. Platelet mean volume [Entitic volume] in Blood by Jakob 10.4 f l 8.6-12.6 [facility] ([facility]) Charted. ID Date Data Source [id number] 09/12/2019 08:07:00 AM EDT [facility] Name Value Range Interpretation Code Description Data [place] rce(s) Supporting Document(s) ANTIVIRAL AB 4TH GEN WRFX SEE BELOW [facility] HIV Screen 4th Generation wRfx Non Reactive Non Reactive [facility] [address] [id number] ID Date Data Source [id number] 09/11/2019 06:26:00 PM EDT [facility] Name Value Range Interpretation Code Description Data [place] rce(s) Supporting Document(s) WBC 9.9 x10E3/uL 4.3-10.9 [facility] RBC 4.44 x10E6/uL 3.80-5.30 [facility] spital HEMOGLOBIN 11.2 g/dl 11.8-15.8 [facility] HEM[facility] 36.0 % 35.0-47.0 [facility]ra MCV 81.1 fl 82.0-98.0 [facility]CH 25.2 pg 27.5-33.[address] [facility] MCHC 31.1 g/dl 32.0-36.[address] [facility] RDW 14.5 % 11.5-14.5 [facility] PLATELET COUNT 298 x10E3/uL 130-400 [facility] MPV 10.4 fl 8.6-12.6 [facility] R [facility], [place] [address] * ID Date Data Source [id number] 09/11/2019 02:15:00 PM EDT [facility] ([facility]) Name Value Range Interpretation Code Description Data [place] rce(s) Supporting Document(s) Laboratory test finding (navigational concept) Laboratory test result [facility] ([facility]) Laboratory test finding (navigational concept) Laboratory test result [facility] ([facility]) PATIENT: ANAHI HAMPTON LOC: TUCKER BILL# : [id number] : 2000 SEX: F ORDERED BY: SAMUEL BARILLAS ORDERED : 09/11/2019 18:06 COLLECTED: 09/11/2019 14:15 ORDER : [id number] RECEIVED : 09/11/2019 18:06 TEST NAME RESULT UNITS RANGES [facility] SITE SOURCE: VAGINAL F STREP GP B LAURYN+RFLX Negative Negative F RN // Centers for Disease Control and Prevention (CDC) and [place] [employer] // of Obstetricians and Gynecologists (ACOG) guidelines for prevention of // group B streptococcal (GBS) disease specify co-collection of // a vaginal and rectal swab specimen to maximize sensitivity of GBS // detection. Per the CDC and ACOG, swabbing both the lower vagina and // rectum substantially increases the yield of detection compared with // sampling the vagina alone. // // Penicillin G, ampicillin, or cefazolin are indicated for intrapartum // prophylaxis of GBS colonization. Reflex susceptibility // testing should be performed prior to use of clindamycin only on GBS // isolates from penicillin-allergic women who are considered a high risk // for anaphylaxis. Treatment with vancomycin without additional testing // is warranted if resistance to clindamycin is noted. // Vinayak [address] [place] [id number] // ID Date Data Source [id number] 09/11/2019 02:15:00 PM EDT [facility] ([facility]) Name Value Range Interpretation Code Description Data Socorro rce(s) Supporting Document(s) Source- Endocerv/Vag Swab Laboratory test result [facility] ([facility]) Chlamydia/GC, Lauryn Laboratory test result [facility] ([facility]) Chlamydia Trachomatis,Lauryn Laboratory test result [facility] ([facility]) JADYNBoatSetteraure [address] [place] [id number] Neisseria Gonorrhoeae,Lauryn Laboratory test result [facility] ([facility]) ANGYBoatSetter[address] [place] [id number] ID Date Data Source [id number] 09/13/2019 12:06:00 PM EDT [facility] Name Value Range Interpretation Code Description Data Socorro rce(s) Supporting Document(s) SOURCE: VAGINAL [facility] STREP GP B LAURYN+RFLX Negative Negative [facility] PATIENT: ANAHI HAMPTON LOC: TUCKER BILL# : [id number] : 2000 SEX: FORDERED BY: SAMUEL BARILLAS ORDERED : 09/11/2019 18:06 COLLECTED: 09/11/2019 14:15ORDER : [id number] RECEIVED : 09/11/2019 18:06 TEST NAME RESULT UNITS RANGES ABN FL SITESOURCE: VAGINAL FSTREP GP B LAURYN+RFLX Negative Negative F RN// Centers for Disease Control and Prevention (CDC) and [place] Congress// of Obstetricians and Gynecologists (ACOG) guidelines for prevention of// group B streptococcal (GBS) disease specify co-collection of// a vaginal and rectal swab specimen to maximize sensitivity of GBS// detection. Per the CDC and ACOG, swabbing both the lower vagina and// rectum substantially increases the yield of detection compared with// sampling the vagina alone.//// Penicillin G, ampicillin, or cefazolin are indicated for intrapartum// prophylaxis of GBS colonization. Reflex susceptibility// testing should be performed prior to use of clindamycin only on GBS// isolates from penicillin-allergic women who are considered a high risk// for anaphylaxis. Treatment with vanc omycin without additional testing// is warranted if resistance to clindamycin is noted.// Vinayak Nobles [address] [place] [id number]// ID Date Data Source [id number] 09/13/2019 02:06:00 AM EDT [facility] Name Value Range Interpretation Code Description Data Socorro rce(s) Supporting Document(s) CHLAMYDIA/GC, LAURYN SEE BELOW [facility] SOURCE- ENDOCERV/VAG SWAB * [facility] CHLAMYDIA TRACHOMATIS,LAURYN Negative Negative [facility] RN-[facility] [address] [place] [phone] NEISSERIA GONORRHOEAE,LAURYN Negative Negative [facility] RN-[facility] [address] [place] [id number] ID Date Data Source [id number] 09/11/2019 02:36:43 PM EDT [facility] CLINICAL HISTORY: Poor growth affe cting management. High risk .Uterine size-date discrepancy. Follow-up assessment of anatomy, inparticular, spine, and lower extremities which were not well-seen on aprevious exam.COMPARISON: Ultrasound exam 08/08/2019. Ultrasound exam 06/25/2019.TECHNIQUE AND FINDINGS:Obstetrical ultrasound exam performed via transabdominal approach.Single intrauterine fetus in vertex presentation. heart rate of 129 bpm during exam.There is anterior location of the placenta, grade III.Amniotic fluid index of 15.9 cm, in range of normal.Estimated we ight of 3202 g +/- 480.3 g.Cephalic index of 76.1, in range of normal.Head/abdominal circumference ratio of 0.99, in range of normal.Mean gestational age based upon measurements of this exam of 37 weeks, 2 days. four-chamber heart not well-visualized on this exam due to positioning. kidneys not well-visualized on this exam due to positioning.There is suboptimal assessment of cervical spine, thoracic spine,lumbosacral spine, and both lower extremities due to positioningduring exam.No free fluid in pelvis.IMPRESSION:SUBOPTIMAL ASSESSMENT OF SPINE, LOWER EXTREMIT IES, FOUR-CHAMBER HEART, ANDFETAL KIDNEYS DUE TO LATE GESTATIONAL AGE AND DUE TO POSITIONING DURINGEXAM.ESTIMATED WEIGHT ABOVE.AMNIOTIC FLUID INDEX OF 15.9 CM.Electronically Signed By: Shelley VAIL DO: 09/11/2019 14:35 Name Value Range Interpretation Code Description Data [facility] Supporting Document(s) ID Date Data Source [id number] 08/08/2019 08:00:23 AM EDT [facility] LIMITED OBSTETRICAL SONOGRAMClinical His tory: Nonreactive stress testTechnique: Limited transabdominal obstetrical sonogram was performed.Comparison: Arch 18 2019FINDINGS:There is a single intrauterine gestation in vertex presentation. cardiacactivity is seen at 129 beats per minute.Biophysical profile: With points for fine finger movements, gross bodymovements, continuous breathing, and appropriate amniotic fluid volume, thebiophysical profile is 8 at 8.LESTER: The LESTER is visually appropriateIMPRESSION : Biophysical profile is 8 out of 8. cardiac activity asabove.Other findings as above.Electronically Signed By: DANITZA WATTS MD .Date: 08/08/2019 07:59 Name Value Range Interpretation Code Description Data [facility] Supporting Document(s) ID Date Data Source [id number] 07/28/2019 10:50:00 PM EDT [facility] Name Value Range Interpretation Code Description Data [facility] Supporting Document(s) Amphetamines Laboratory test result [facility] ([facility]) Screen Cutoff 1000 ng/ml. . Screen Interpretation Laboratory test result [facility] ([facility]) Methodology for the test(s) below is for screening purposes only and the reference range for these tests is Negative. Positive results should be considered presumptive. . . Barbiturates Laboratory test result [facility]) Screen Cutoff 200 ng/ml. . Benzodiazepines [Presence] in Urine Laboratory test result [facility] ([facility]) Screen Cutoff 300 ng/ml. . Benzoylecgonine [Presence] in Urine Laboratory test result [facility] ([facility]) Screen Cutoff 300 ng/ml. . Cannabis (THC) Laboratory test result [facility] ([facility]) Screen Cutoff 50 ng/ml. . Opiates [Presence] in Urine Laboratory test result [facility]) Screen Cutoff 300 ng/ml. . Phencyclidine (PCP) Laboratory test result [facility] ([facility]) Screen Cutoff 25 ng/ml. . Tricyclic antidepressants [Presence] in Serum or Plasma Labo ratory test result [facility] ([facility]) Screen Cutoff 500 ng/ml. . R [facility], Dept of Path [address] [place] [address] * ID Date Data Source [id number] 07/28/2019 10:50:00 PM EDT [facility]) Name Value Range Interpretation Code Description Data Socorro rce(s) Supporting Document(s) Color of Urine Laboratory test result [facility]) Appearance of Urine Laboratory test result [facility] ([facility]) Leukocytes [#/volume] in Urine by Manual count Laboratory test result [facility] ([facility]) Urine Nitrite Laboratory test result [facility] ([facility]) Specific gravity of Urine by Refractometry 1.010 1.003-1.035 [facility] ([facility]) Urine Protein Laboratory test result [facility]) pH of Urine 7.0 5.0-8.0 [facility] ([facility]) Ketones [Presence] in Urine by Test strip Laboratory test result [facility] ([facility]) Glucose [Presence] in Urine Laboratory test result [facility] ([facility]) Bilirubin.total [Mass/volume] in Urine Laboratory test result [facility] ([facility]) Urobilinogen [Mass/volume] in Urine by Test strip 0.2 mg/dL [facility] ([facility]) Hemoglobin [Presence] in Urine by Test strip Laboratory test result [facility] ([facility]) Urine Microscopic Laboratory test result [facility]) Microscopic performed. Elements observed are listed. If no elements are listed,the Microscopic is negative. Bacteria [Presence] in Semen by Light microscopy Laboratory test result Abnormal (applies to non-numeric results) [facility] ([facility]) Leukocytes [#/volume] in Blood by Automated count Laboratory test r esult 0-5 [facility]) Epithelial cells [#/area] in Urine sediment by Micros opy high power field Laboratory test result 0-5 [facility] ([facility]) Bacteria identified in Urine by Culture Laboratory test result [facility]) R [facility], Dept of Path [address] [place] [address] * Mucus [Presence] in Urine sediment by Light microscopy Laborator y test result Abnormal (applies to non-numeric results) [facility] ([facility]) ID Date Data Source [id number] 07/28/2019 11:23:00 PM EDT [facility] Name Value Range Interpretation Code Description Data Socorro rce(s) Supporting Document(s) SCREEN INTERPRETATION SEE NOTE [facility] Methodology for the test(s) be low is for screening purposes only and the reference range for these tests is Negative. Positive results should be considered presumptive. . . AMPHETAMINES NEGATIVE [facility] Screen Cutoff 1000 ng/ml. . BARBITURATES NEGATIVE [facility] Screen Cutoff 200 ng/ml. . BENZODIAZEPINES NEGATIVE [facility] Screen Cutoff 300 ng/ml. . COCAINE NEGATIVE [facility] Screen Cutoff 300 ng/ml. . OPIATES NEGATIVE [facility] Screen Cutoff 300 ng/ml. . PHENCYCLIDINE (PCP) NEGATIVE [facility] Screen Cutoff 25 ng/ml. . CANNABIS (THC) NEGATIVE [facility] ospital Screen Cutoff 50 ng/ml. . TRICYCLIC ANTIDEPRESSNT NEGATIVE NEGATIVE [facility] Screen Cutoff 500 ng/ml. . R [facility], Dept of Path [address] [place] [address] * ID Date Data Source [id number] 07/28/2019 11:20:00 PM EDT [facility] Name Value Range Interpretation Code Description Data Socorro rce(s) Supporting Document(s) URINE COLOR YELLOW YELLOW [facility] URINE APPEARANCE CLEAR CLEAR [facility] URINE SPECIFIC GRAVITY 1.010 1.003-1.035 [facility] URINE LEUKOCYTES NEGATIVE NEGATIVE [facility] URINE NITRITE NEGATIVE NEGATIVE [facility] URINE PH 7.0 5.0-8.0 [facility] URINE PROTEIN NEGATIVE mg/dl NEGATIVE [facility] URINE GLUCOSE NEGATIVE mg/dl NEGATIVE [facility] URINE KETONES NEGATIVE mg/dl NEGATIVE [facility] URINE UROBILINOGEN 0.2 mg/dl NORMAL OR <1 [facility] URINE BILIRUBIN NEGATIVE NEGATIVE [facility] URINE OCCULT BLOOD NEGATIVE NEGATIVE [facility] URINE MICROSCOPIC PERFORMED [facility] Microscopic performed . Elements observed are listed. If no elements are listed,the Microscopic is negative. WBC 2-5 hpf 0-5 [facility] BACTERIA 1+ hpf NEGATIVE A [facility] EPITHELIAL CELLS 2-5 hpf 0-5 [facility] MUCOUS THREADS 1+ hpf NEGATIVE A [facility] ospital URINE C+S IF INDICATED NOT INDICATED Rom e [facility] R [facility], Dept of [facility] [address] [place] [id number] * ID Date Data Source [id number] 07/17/2019 02:16:00 PM EDT [facility] PAGE: [address] [place] [address] [place] [id number] [facility] REC NUM: [id number] : 2000 Med Reconciliation Patient: MEMO CHRISTIAN Medication Reconciliation Report Special[facility] HospitalVisitID: [id number] [place] [address] [phone], FRegistration Date/Time: 07/17/2019 14:16 Weight: 112.4 kgHeight/Length: 66 in.BMI: 40.0 ALLERGIES:Nystatin The patient's Home Medications are listed below: Not obtained.The source(s) of the original Home Medication information: Not obtained.The following Medications were given to the patient in the Emergency Department:None.The following Medications were prescribed to the patient: None. Name Value Range Interpretation Code Description Data Socorro rce(s) Supporting Document(s) ID Date Data Source [id number] 07/17/2019 02:16:00 PM EDT [facility] PAGE: [address] [place] [address] [place] [address] [facility] REC NUM: [id number] : 2000 Physician Discharge Report Clinical Report - Physicians/[facility] Department [address] [place] [address] Patient: MEMO CHRISTIAN : F : 2000 Age: 18yArrival: 07/17/2019 14:16 Departure: 07/17/2019 16:25 Disposition: Discharge Weight:112.4 kg (S). Height/Length:66 inches (S). BMI:40. Growth Chart Percentile: Weight:99.3%. Height/Length:75.1% Time Seen: 14:45 07/17/2019; initial patient contact. Arrived- By private vehicle. Historian- patient. Disposition decision: 16:12 07/17/2019. HISTORY OF PRESENT ILLNESSChief Complaint: headaches. This started today and is now gone. (Seen at OB clinic and sent to ED for evaluation of preeclampsia. Patient states that she has chronic headaches and told him at the OB clinic. They felt concerned because patient is 30 weeks gestation. During evaluation patient denied any chest pain, shortness of breath or headaches or dizziness. Blood pressure is normal.). REVIEW OF SYSTEMSNo ch ills, fever, ear pain, nasal congestion or runny nose. No sore throat, chest pain, cough, difficulty breathing or palpitations. No abdominal pain, constipation, diarrhea, nausea or vomiting. No urinary frequency or urinary hesitancy, hematuria or difficulty with urination. The patient has had back pain and dizziness and sustained a head injury. All other systems reviewed and are negative. PAST HISTORYSee nurses notes. SOCIAL HISTORYNever smoker. PAGE: [address] [place], [place] [address] NUM: [id number] : 2000 FAMILY HISTORYNo significant family medical history. ADDITIONAL NOTESThe nursing notes have been reviewed. PHYSICAL EXAMVital Signs: 07/17/2019 14:20 BP: 124/82. MAP: 96. HR: 98. RR: 16. O2 saturation: 98%. Temp: 98.6 F. Have been reviewed. Appearance: Alert. Oriented X3. No acute distress. HEENT: Normal external inspection. ENT: Pharynx normal. Neck: Neck supple. CVS: Heart sounds normal. Respiratory: No respiratory distress. Painless inspiration. Breath sounds normal. Chest nontender. Abdomen: Soft and nontender. Bowel sounds normal. No organomegaly. No mass. Back: Normal external inspection. Skin: Skin warm and dry. Normal skin color. No rash. Normal skin turgor. Extremities: Extremities nontender. No pathologic edema. Neuro: Oriented X 3. Mood/affect normal. No motor deficit. No sensory deficit. LABS, X-RAYS, AND EKGLaboratory Tests: EGFR (CALCULATED): (NEIDA: 07/17/2019 14:55)( MsgRcvd 07/17/2019 15:36) Final results urine protein/creatine ratio Test Result Flag Units (Reference)ESTIMATED GFR (CALCULATED) EGFR 150 >59 mL/min/1.73m2 EGFR, -TUVALUAN 173 >59 mL/min/1.76p7Kzlm: Persistent reduction for 3 months or more in an eGFR <60 mL/min/1.73m2 defines CKD. Patients with eGFR values >=60 mL/min/1.73m2 may also have CKD if evidence of persistent proteinuria is present. Additional information may be found at [email or web address]. PAGE: [address] [place] [address] [facility] REC NUM: [id number] : 2000 Uric Acid: (NEIDA: 07/17/2019 14:55)( [facility] 07/17/[facility] 15:35) Final results urine protein/creatine ratio Test Result Flag Units (Reference)URIC ACID 3.8 mg/dl (3.0-5.9) Therapeutic target for gout patients: <6.0 mg/dl CBC w Diff: (NEIDA: 07/17/2019 14:55)( [facility] 07/17/2019 15:04) Final results urine protein/creatine ratio Test Result Flag Units (Reference)WBC 9.3 x10E3/uL (4.3-10.9) RBC 4.11 x10E6/uL (3.80-5.30) HEMOGLOBIN 11.1 L g/dl (11.8-15.8) HEMATOCRIT 34.4 L % (35.0-47.0) MCV 83.7 fl (82.0-98.0) MCH 27.0 L pg (27.5-33.5) MCHC 32.3 g/dl (32.0-36.0) RDW 14.0 % (11.5-14.5) PLATELET COUNT 271 x10E3/uL (130-400) MPV 9.1 fl (8.6-12.6) SEGMENTED NEUTROPHILS 78.0 H % (44.0-74.0) LYMPHOCYTES 15.6 % (15.0-45.0) MONOCYTES 5.7 % (2.0-13.0) EOSINOPHILS 0.5 % PAGE: [address] [place] [address] [facility] REC NUM: [id number] : 2000 (0.0-6.0) BASOPHILS 0.2 % (0.0-2.0) NEUTROPHIL ABSOLUTE 7.3 H x10E3/uL (1.4-7.0) LYMPHOCYTES ABSOLUTE 1.5 x10E3/uL (1.0-3.4) MONOCYTE ABSOLUTE 0.5 x10E3/uL (0.2-1.0) EOSINOPHIL ABSOLUTE 0.0 x10E3/uL (0.0-0.5) BASOPHIL ABSOLUTE 0.0 x10E3/uL (0.0-0.2) Comprehensive Panel: (NEIDA: 07/17/2019 14:55)( MsgRcvd 07/17/2019 15:35) Final results urine protein/creatine ratio Test Result Flag Units (Reference)G LUCOSE 93 mg/dl (70- 100) BUN 4 mg/dl (4-18) CREATININE, SERUM 0.42 L mg/dl (0.60-1.20) SODIUM 136 mmol/l (136-146) POTASSIUM 3.8 mmol/l (3.5-5.3) CHLORIDE 104 mmol/l (96-109) CARBON DIOXIDE 22 mmol/l (20-32) ALBUMIN 3.2 g/dl (3.1-4.8) PROTEIN, TOTAL 6.0 L g/dl (6.3-8.6) CALCIUM 8.6 L mg/dl (8.9-10.7) ALKALINE PHOSPHATASE 102 U/l (50-130) SGOT (AST) 11 U/l (5-30) SGPT (ALT) 6 U/l (5-35) BILIRUBIN, TOTAL 0.19 L mg/dl PAGE: [address] [place] [address] REC NUM: [id number] : 2000 (0.30-1.20) BUN/CREATININE RATIO 9.5 (6.0-20.0) GLOBULIN 2.8 g/dl (2.3-3.5) ANION GAP 10.0 mmol/l (7.0-16.0) OSMOLALITY (CALCULATED) 269 L mos/kg (280-300) A/G RATIO 1.1 (1.0-2.0) Lipase: (NEIDA: 07/17/2019 14:55)( [facility] 07/17/2019 15:35) Final results urine protein/creatine ratio Test Result Flag Units (Reference)LIPASE 14 U/L (1-64) APTT: (NEIDA: 07/17/2019 14:55)( [facility] 07/17/2019 15:15) Final results urine protein/creatine ratio Test Result Flag Units (Reference)PTT 28.6 seconds (23.7-35.5) Protime Not on Therapy: (NEIDA: 07/17/2019 14:55)( [facility] 07/17/2019 15:15) Final results urine protein/creatine ratio Test Result Flag Units (Reference)PT (NO THERAPY/UNKNOWN) 13.1 seconds (11.7- 14.5) INR 1.0 INTERNATIONAL NORMALIZED RATIO(INR) INDICATIONS INR RANGE PATIENTS NOT ON ANTICOAGULANT THERAPY * DEEP VENOUS THROMBOSIS 2.0- 3.0 PULMONARY EMBOLISM 2.0-3.0 PAGE: [address] [place] [address] REC NUM: [id number] : 2000 ATRIAL FIBRILLATION 2.0-3.0 PROPHYLAXIS: 2.0-3.0 HIGH-RISK SURGERY TISSUE HEART VALVES ATRIAL FIBRILLATION ACUTE MYOCARDIAL INFARCTION VALVULAR HEART DISEASE MECHANICAL PROSTHETIC VALVE 2.5-3.5* USE OF INR VALUES SHOULD BE LIMITED TO PATIENTS WHO ARE ON STABLE ORAL ANTICOAGULANT THERAPY. AN INR ABOVE 5.0-5.5 APPEARS TO BE ASSOCIATED WITH AN UNACCEPTABLY HIGH RISK OF BLEEDING. . PROGRESS AND PROCE DURESCourse of Care: 16:12 07/17/19. ( Will send to maternity for non stress test. Patient denies vaginal bleed or abdominal pain.). Disposition: Discharged. CLINICAL IMPRESSIONThird trimester . INSTRUCTIONSDrink plenty of fluids. Warnings: Further evaluation is necessary. GENERAL WARNINGS: Return or contact your physician immediately if your condition worsens or changes unexpectedly, if not improving as expected, or if other problems arise. Understanding of the discharge instructions verbalized by patient. Follow-up with: [place] [facility], OBGYN, , [facility], [address] [place], [place], [address]Pdhndl up tomorrow. Call for an appointment. Reason for referral: evaluation and treatment. Summary of care provided to patient. (Electronically signed by KATELYNN DAVIS NP 07/17/2019 17:48) PAGE: [address] REC NUM: [id number] : 2000 Name Value Range Interpretation Code Description Data Socorro rce(s) Supporting Document(s) ID Date Data Source [id number] 07/17/2019 04:50:00 PM EDT [facility] urine protein/creatine ratio Name Value Range Interpretation Code Description Data Socorro rce(s) Supporting Document(s) URINE COLOR YELLOW YELLOW [facility] URINE APPEARANCE CLEAR CLEAR [facility] URINE SPECIFIC GRAVITY 1.010 1.003-1.035 [facility] URINE LEUKOCYTES MODERATE(2+) NEGATIVE A [facility] URINE NITRITE NEGATIVE NEGATIVE [facility] spital URINE PH 8.0 5.0-8.0 [facility] URINE PROTEIN NEGATIVE mg/dl NEGATIVE [facility] URINE GLUCOSE NEGATIVE mg/dl NEGATIVE [facility] URINE KETONES NEGATIVE mg/dl NEGATIVE [facility] URINE UROBILINOGEN 0.2 mg/dl NORMAL OR <1 [facility] URINE BILIRUBIN NEGATIVE NEGATIVE [facility] URINE OCCULT BLOOD NEGATIVE NEGATIVE [facility] URINE MICROSCOPIC PERFORMED [facility] Microscopic performed . Elements observed are listed. If no elements are listed,the Microscopic is negative. WBC 20-30 hpf 0-5 A [facility] BACTERIA 1+ hpf NEGATIVE A [facility] EPITHELIAL CELLS 10-20 hpf 0-5 A [facility], Dept of [address] [address] * ID Date Data Source [id number] 07/17/2019 03:35:00 PM EDT [facility] urine protein/creatine ratio Name Value Range Interpretation Code Description Data Socorro rce(s) Supporting Document(s) ESTIMATED GFR (CALCULATED) [facility] EGFR 150 [facility] >59 mL/min/1.73m2 EGFR, -TUVALUAN 173 [facility] >59 mL/min/1.72q2Pmpf: Persistent reduction for 3 months or more in an eGFR <60 mL/min/1.73m2 defines CKD. Patients with eGFR values >=60 mL/min/1.73m2 may also have CKD if evidence of persistent proteinuria is present. Additional information may be found at [email or web address]. R [facility], Dept of Path [address] [place] [address] * ID Date Data Source [id number] 07/17/2019 03:35:00 PM EDT [facility] urine protein/creatine ratio Name Value Range Interpretation Code Description Data Socorro rce(s) Supporting Document(s) URIC ACID 3.8 mg/dl 3.0-5.9 [facility] Therapeutic target for gout patients: <6.0 mg/dl R [facility], Dept of Path [address] [place] [address] * ID Date Data Source [id number] 07/17/2019 03:35:00 PM EDT [facility] urine protein/creatine ratio Name Value Range Interpretation Code Description Data Socorro rce(s) Supporting Document(s) LIPASE 14 U/L 1-64 [facility] R [facility] h [address] [place] [address] * ID Date Data Source [id number] 07/17/2019 03:35:00 PM EDT [facility] urine protein/creatine ratio Name Value Range Interpretation Code Description Data Socorro rce(s) Supporting Document(s) GLUCOSE 93 mg/dl 70-100 [facility] BUN 4 mg/dl 4-18 [facility] CREATININE, SERUM 0.42 mg/dl 0.60-1.20 L [facility] SODIUM 136 mmol/l 136-146 [facility] POTASSIUM 3.8 mmol/l 3.5-5.3 [facility] CHLORIDE 104 mmol/l 96-109 [facility] CARBON DIOXIDE 22 mmol/l 20-32 [facility] ospital ALBUMIN 3.2 g/dl 3.1-4.8 [facility] al PROTEIN, TOTAL 6.0 g/dl 6.3-8.6 L [facility] ospital CALCIUM 8.6 mg/dl 8.9-10.[address] [facility] al ALKALINE PHOSPHATASE 102 U/l 50-130 [facility] SGOT (AST) 11 U/l 5-30 [facility] ciarra SGPT (ALT) 6 U/l 5-35 [facility] BILIRUBIN, TOTAL 0.19 mg/dl 0.30-1.20 L [facility] BUN/CREATININE RATIO 9.5 6.0-20.0 [facility] GLOBULIN 2.8 g/dl 2.3-3.5 [facility] ANION GAP 10.0 mmol/l 7.0-16.0 [facility] OSMOLALITY (CALCULATED) 269 mos/kg 280-300 L [facility] A/G RATIO 1.1 1.0-2.0 [facility] al R [facility], Dept of [facility] [address] [place] [address] * ID Date Data Source [id number] 07/17/2019 03:15:00 PM EDT [facility] urine protein/creatine ratio Name Value Range Interpretation Code Description Data Socorro rce(s) Supporting Document(s) PTT 28.6 seconds 23.7-35.5 [facility] pital R [facility], Dept of Pat h [address] [place] [address] * ID Date Data Source [id number] 07/17/2019 03:15:00 PM EDT [facility] urine protein/creatine ratio Name Value Range Interpretation Code Description Data Socorro rce(s) Supporting Document(s) PT (NO THERAPY/UNKNOWN) 13.1 seconds 11.7-14.5 [facility] INR 1.0 [facility] IN TERNATIONAL NORMALIZED RATIO(INR) INDICATIONS INR RANGE PATIENTS NOT ON ANTICOAGULANT THERAPY * DEEP VENOUS THROMBOSIS 2.0-3.0 PULMONARY EMBOLISM 2.0-3.0 ATRIAL FIBRILLATION 2.0-3.0 PROPHYLAXIS: 2.0-3.0 HIGH-RISK SURGERY TISSUE HEART VALVES ATRIAL FIBRILLATION ACUTE MYOCARDIAL INFARCTION VALVULAR HEART DISEASE MECHANICAL PROSTHETIC VALVE 2.5-3.5* USE OF INR VALUES SHOULD BE LIMITED TO PATIENTS WHO ARE ON STABLE ORAL ANTICOAGULANT THERAPY. AN INR ABOVE 5.0-5.5 APPEARS TO BE ASSOCIATED WITH AN UNACCEPTABLY HIGH RISK OF BLEEDING. R [facility], Dept of Path [address] [place] [address] * ID Date Data Source [id number] 07/17/2019 03:04:00 PM EDT [facility] urine protein/creatine ratio Name Value Range Interpretation Code Description Data Socorro rce(s) Supporting Document(s) WBC 9.3 x10E3/uL 4.3-10.9 [facility] pital RBC 4.11 x10E6/uL 3.80-5.30 [facility] spital HEMOGLOBIN 11.1 g/dl 11.8-15.8 L [facility] ciarra HEMATOCRIT 34.4 % 35.0-47.0 L [facility] MCV 83.7 fl 82.0-98.0 [facility] MCH 27.0 pg 27.5-33.5 L [facility] MCHC 32.3 g/dl 32.0-36.0 [facility] RDW 14.0 % 11.5-14.5 [facility] PLATELET COUNT 271 x10E3/uL 130-400 [facility] MPV 9.1 fl 8.6-12.6 [facility] SEGMENTED NEUTROPHILS 78.0 % 44.0-74.0 H [facility] LYMPHOCYTES 15.6 % 15.0-45.0 [facility] MONOCYTES 5.7 % 2.0-13.0 [facility] EOSINOPHILS 0.5 % 0.0-6.0 [facility] BASOPHILS 0.2 % 0.0-2.0 [facility] al NEUTROPHIL ABSOLUTE 7.3 x10E3/uL 1.4-7.0 H [facility] LYMPHOCYTES ABSOLUTE 1.5 x10E3/uL 1.0-3.4 [facility] MONOCYTE ABSOLUTE 0.5 x10E3/uL 0.2-1.0 [facility] EOSINOPHIL ABSOLUTE 0.0 x10E3/uL 0.0-0.5 [facility] BASOPHIL ABSOLUTE 0.0 x10E3/uL 0.0-0.2 [facility], Dept of [facility] [address] [place] [id number] * ID Date Data Source [id number] 07/17/2019 02:00:00 PM EDT [facility] ([facility]) Name Value Range Interpretation Code Description Data Socorro rce(s) Supporting Document(s) Creatinine [Mass/volume] in Urine 135.52 mg/dL [facility] ([facility]) Reference ranges are not available for random urines. Protein [Mass/volume] in Urine 20.3 mg/dL [facility] ([facility]) Reference ranges are not available for random urines. Protein/Creat Ratio 0.15 ratio [facility] ([facility]) [facility] [address] [place] [id number] * ID Date Data Source [id number] 07/17/2019 05:59:00 PM EDT [facility] Name Value Range Interpretation Code Description Data Socorro rce(s) Supporting Document(s) CREAT, RANDOM URINE 135.52 mg/dl [facility] Reference ranges are not available for random urines. PROTEIN, RANDOM URINE 20.3 mg/dl [facility] Reference ranges are not available for random urines. PROTEIN/CREAT RATIO 0.15 ratio [facility], Dept of [facility] [address] [place] [address] * ID Date Data Source [id number] 07/10/2019 03:58:00 PM EDT [facility] ([facility]) Name Value Range Interpretation Code Description Data Socorro rce(s) Supporting Document(s) Rh immune globulin screen [interpretation] Laboratory test result [facility] ([facility]) PATIENT: ANAHI HAMPTON LOC: [facility] BILL# : [id number] : 2000 SEX: F ORDERED BY: ELVIA SNOW ORDERED : 07/16/2019 13:11 COLLECTED: 07/10/2019 15:58 ORDER : [id number] RECEIVED : 07/10/2019 16:17 TEST NAME RESULT Rh IG-full dose [id number] issued 1 vial 07/16/19 13:13 Hemoglobin electrophoresis panel in Blood Laboratory test result [facility] ([facility]) Hgb Solubility Negative Negative RN Hgb F 0.0 % 0.0-2.0 RN Hgb A 97.7 % 96.4-98.8 RN Hgb S 0.0 % 0.0 RN Hgb C 0.0 % 0.0 RN Hgb A2 2.3 % 1.8-3.2 RN Hgb Variant 0.0 % 0.0 RN Interpretation RN Normal adult hemoglobin present. RN-[facility] [address] [id number] ID Date Data Source [id number] 07/10/2019 03:58:00 PM EDT [facility] ([facility]) Name Value Range Interpretation Code Description Data Socorro rce(s) Supporting Document(s) Rh immune globulin screen [interpretation] Laboratory test result [facility] ([facility]) PATIENT: ANAHI HAMPTON LOC: [facility] BILL# : [id number] : 2000 SEX: F ORDERED BY: ELVIA SNOW ORDERED : 07/10/2019 14:57 COLLECTED: 07/10/2019 15:58 ORDER : [id number] RECEIVED : 07/10/2019 16:17 TEST NAME RESULT ABO TYPE O 07/10/19 16:59 [facility] RH TYPE NEG 07/10/19 16:59 [facility] ANTIBODY SCREEN NEG 07/10/19 17:15 B[facility] ID Date Data Source [id number] 07/10/2019 03:58:00 PM EDT [facility] Name Value Range Interpretation Code Description Data Socorro rce(s) Supporting Document(s) Hemoglobin [Mass/volume] in Blood 11.5 g/dL 11.8-15.8 Below low nor mal [facility] ([facility]) Erythrocytes [#/volume] in Blood by Automated count 4.29 x10E6/uL 3.8 0-5.30 [facility] ([facility]) Hematocrit [Volume Fraction] of Blood by Automated count 36.1 % 3 5.0-47.0 [facility] ([facility]) Leukocytes [#/volume] in Blood by Automated count 9.0 x10E3/uL 4.3-10 .9 [facility] ([facility]) Erythrocyte mean corpuscular hemoglobin [Entitic mass] by Automated count 26.8 pg 27.5-33.5 Below low normal [facility] ([facility]) Erythrocyte mean corpuscular hemoglobin concentration [Mass/volume] by Automated count 31.9 g/dL 32.0-36.0 Below low normal [facility] ([facility]) Erythrocyte mean corpuscular volume [Entitic volume] by Auto mated count 84.1 fl 82.0-98.0 [facility] ([facility] C linics) Platelets [#/volume] in Blood by Automated count 283 x10E3/uL 130-400 [facility] ([facility]) Erythrocyte distribution width [Ratio] by Automated count 14.3 % 11.5-14.5 [facility] ([facility]) Platelet mean volume [Entitic volume] in Blood by Jakob 9.6 fl 8.6-12.6 [facility] ([facility]) [facility] [address] [address] * [phone] ID Date Data Source [id number] 07/10/2019 03:58:00 PM EDT [facility] ([facility]) Name Value Range Interpretation Code Description Data Socorro rce(s) Supporting Document(s) Glucose [Moles/volume] in Serum or Plasma --1 hour pos t 50 g glucose PO 126 mg/dL [facility] ([facility]) [facility] [address] [address] * Reagin Ab [Presence] in Serum by RPR Laboratory test result 0-0 [facility] ([facility]) [facility] [address] [address] * [phone] ID Date Data Source [id number] 07/16/2019 01:13:00 PM EDT [facility] PATIENT: ANAHI HAMPTON LOC: [facility] BILL# : [id number] : 2000 SEX: FORDERED BY: ELVIA SNOW ORDERED : 07/16/2019 13:11 COLLECTED: 07/10/2019 15:58ORDER : [id number] RECEIVED : 07/10/2019 16:17 TEST NAME RESULTRh IG-full dose [id number] issued 1 vial 07/16/19 13:13 -- Name Value Range Interpretation Code Description Data Socorro rce(s) Supporting Document(s) ID Date Data Source [id number] 07/14/2019 10:13:00 AM EDT [facility] Name Value Range Interpretation Code Description Data Socorro rce(s) Supporting Document(s) HEMOGLOBINOPATHY PROFILE SEE BELOW [facility] Hgb Solubility Negati ve Negative RNHgb F 0.0 % 0.0-2.0 [facility] A 97.7 % 96.4-98.8 [facility] S 0.0 % 0.0 [facility] C 0.0 % 0.0 [facility] A2 2.3 % 1.8-3.2 [facility] Variant 0.0 % 0.0 RNInterpretation RNNormal adult hemoglobin present.RN-[facility] [address] [id number] ID Date Data Source [id number] 07/10/2019 05:15:00 PM EDT [facility] PATIENT: ANAHI HAMPTON LOC: [facility] BILL# : [id number] : 2000 SEX: FORDERED BY: ELVIA SNOW ORDERED : 07/10/2019 14:57 COLLECTED: 07/10/2019 15:58ORDER : [id number] RECEIVED : 07/10/2019 16:17 TEST NAME RESULTABO TYPE O 07/10/19 16:59 [facility] TYPE NEG 07/10/19 16:59 BHPANTIBODY SCREEN NEG 07/10/19 17:15 B[facility] Name Value Range Interpretation Code Description Data Socorro rce(s) Supporting Document(s) ID Date Data Source [id number] 07/10/2019 05:08:00 PM EDT [facility] Name Value Range Interpretation Code Description Data Socorro rce(s) Supporting Document(s) RPR NON-REACTIVE NON-REACTIVE [facility] [place] [address] * ID Date Data Source [id number] 07/10/2019 04:50:00 PM EDT [facility] Value Range Interpretation Code Description Data Socorro rce(s) Supporting Document(s) GLUCOSE, 1HR 50GP 126 mg/dl < or = 140 [facility] [place] [address] * ID Date Data Source [id number] 07/10/2019 04:23:00 PM EDT [facility] Value Range Interpretation Code Description Data Socorro rce(s) Supporting Document(s) WBC 9.0 x10E3/uL 4.3-10.9 [facility] pital RBC 4.29 x10E6/uL 3.80-5.30 [facility] spital HEMOGLOBIN 11.5 g/dl 11.8-15.8 L [facility] HEMATOCRIT 36.1 % 35.0-47.0 [facility] MCV 84.1 fl 82.0-98.0 [facility] MCH 26.8 pg 27.5-33.5 L [facility] MCHC 31.9 g/dl 32.0-36.0 L [facility] RDW 14.3 % 11.5-14.5 [facility] PLATELET COUNT 283 x10E3/uL 130-400 [facility] MPV 9.6 fl 8.6-12.6 [facility] R [facility], Dept of [address] [address] * ID Date Data Source [id number] 06/25/2019 02:38:15 PM EDT [facility] OBSTETRICAL SONOGRAMClinical History: Fo llow up anatomy.Technique: Transabdominal scanning. Detailed measurements are available uponrequest and review on the performed obstetrical sonogram worksheet.Comparison: June 09.Quality assessment: Acceptable.FINDINGS:: There is a single intrauterine gestation in breech presentation. Theplacenta is anterior grade 1 without evidence for previa. The amniotic fluidvolume is 16.9 cm, within normal range. cardiac activity is seen at 124beats per minute. anatomic survey is unremarkable. anatomy survey includes evaluationof the upper and lower extremities for motion, the spine, kidneys, diaphragm, profile, face, chin, lips, nose, bladder, GI tract, brain including lateral ventricles and cerebellum, fetalheart, umbilical cord. There is persistent limited visualization of the fetalspine and lower extremities due to positioning.Cervical length is 3.2 cm.IMPRESSION: SINGLE INTRAUTERINE GESTATION IDENTIFIED IN BREECH PRESENTATION. CARDIAC ACTIVITY AT 124 BEATS PER MINUTE. THE ESTIMATED GESTATIONAL AGE IS26 WEEKS 6 DAYS WITH AN EDC OF 09/25/2019. SPINE AND LOWER EXTREMITIES INADEQUATELY EVALUATED TODAY.Electronically Signed By: DANITZA WATTS MDDate: 06/25/2019 14:37 Name Value Range Interpretation Code Description Data Socorro rce(s) Supporting Document(s) ID Date Data Source [id number] 06/10/2019 11:24:18 AM EST [facility] OBSTETRICAL SONOGRAMClinical History: luís anatomy. No pain. No bleeding. G1, P0. Second trimesterpregnancy. Initial encounter at this institution.Technique: Transabdominal pelvic ultrasound examination was performed. Detailedmeasurements are available upon request and review on the performed obstetricalsonogram worksheet.Comparison: None. Correlation is made with a report from [facility] dated 03/11/2019.Quality assessment: Acceptable.FINDINGS:: There is a single intrauterine gestation in breech presentation. Theplacenta is anterior without evidence for previa. Amniotic fluid volume isvisually within normal limits. cardiac activity is seen at 134 beats perminute. anatomic survey is limited. Specifically, the lower extremities, spine, face, chin, lips, nose, cerebellum, heart, andcord insertion are not well-evaluated secondary to position.Using BPD, HC, AC, and FL the estimated weight is 554 grams. This falls atthe 20th percentile.The estimated gestational age is 22 weeks 6 days with a 13 day lag in expectedgrowth.Cervical length is measured at 3.3 cm.IMPRESSION: SINGLE INTRAUTERINE GESTATION IDENTIFIED IN BREECH P RESENTATION. CARDIAC ACTIVITY ABOVE. AMNIOTIC FLUID VOLUME VISUALLY WITHIN THE RANGEOF NORMAL. LIMITED ANATOMIC SURVEY FOR WHICH FOLLOW-UP SONOGRAM IN ONE TOTWO WEEKS' TIME IS RECOMMENDED.NOTE IS MADE OF A LAG IN EXPECTED GROWTH OF UP TO 13 DAYS. CLINICAL CORRELATIONAND FURTHER EVALUATION RECOMMENDED APPROPRIATE CLINICALLY.OTHER FINDINGS ABOVE.A Yellow message has been communicated to FILE ROOM via the [employer] system on 06/10/2019 9:24 AM, Message ID [id number].Electronically Signed By: NATALIA ESPARZA MDDate: 06/10/2019 11:22 Name Value Range Interpretation Code Description Data Socorro rce(s) Supporting Document(s) ID Date Data Source [id number] 06/09/2019 11:30:00 AM EST [facility] Name Value Range Interpretation Code Description Data [facility] rce(s) Supporting Document(s) Screen Interpretation Laboratory test result [facility] ([facility]) Methodology for the test(s) below is for screening purposes only and the reference range for these tests is Negative. Positive results should be considered presumptive. . . Amphetamines Laboratory test result [facility] ([facility]) Screen Cutoff 1000 ng/ml. . Benzodiazepines [Presence] in Urine [facility] Screen Cutoff 300 ng/ml. . Barbiturates Laboratory test result [facility] Screen Cutoff 200 ng/ml. . Phencyclidine (PCP) Laboratory test result [facility] ([facility]) Screen Cutoff 25 ng/ml. . Benzoylecgonine [Presence] in Urine [facility] Screen Cutoff 300 ng/ml. . Opiates [Presence] in Urine Laboratory test result [facility] ([facility]) Screen Cutoff 300 ng/ml. . Tricyclic antidepressants [Presence] in Serum or Plasma Labo ratory test result [facility] ([facility] C linics) Screen Cutoff 500 ng/ml. . R [facility], Dept of Path [address] [place] [address] * [phone] Cannabis (THC) Laboratory test result [facility] ([facility]) Screen Cutoff 50 ng/ml. . ID Date Data Source [id number] 06/09/2019 03:30:00 PM EST [facility] Name Value Range Interpretation Code Description Data [place] rce(s) Supporting Document(s) SCREEN INTERPRETATION SEE NOTE [facility] Methodology for the test(s) be low is for screening purposes only and the reference range for these tests is Negative. Positive results should be considered presumptive. . . AMPHETAMINES NEGATIVE [facility] Screen Cutoff 1000 ng/ml. . BARBITURATES NEGATIVE [facility] Screen Cutoff 200 ng/ml. . BENZODIAZEPINES NEGATIVE [facility] Screen Cutoff 300 ng/ml. . COCAINE NEGATIVE [facility] Screen Cutoff 300 ng/ml. . OPIATES NEGATIVE [facility] Screen Cutoff 300 ng/ml. . PHENCYCLIDINE (PCP) NEGATIVE [facility] Screen Cutoff 25 ng/ml. . CANNABIS (THC) NEGATIVE [facility] ospital Screen Cutoff 50 ng/ml. . TRICYCLIC ANTIDEPRESSNT NEGATIVE NEGATIVE [facility] Screen Cutoff 500 ng/ml. . R [facility], Dept of Path [address] [place] [address] * ID Date Data Source [id number] 03/11/2019 09:55:00 AM EST [facility] [address] [place] [address] [phone] NAME SEX PT STATUS ACCOUNT NUMBER [facility] [id number] ORDERING PHYSICIAN LOCATION MEDICAL RECORD NO. Cecilia Heck DO [id number] ATTENDING PHYSICIAN DATE OF DATE OF EXAM/TIME Doctor Provided,No Family 2000 03/10/19 / 5 TYPE / EXAM US OB Ultrasound <14 weeks REASON FOR EXAM dating ultrasound OBSTETRICAL ULTRASONOGRAPHY FINDINGS: A single viable intrauterine is seen with estimated age of 11 weeks and 4 days. Estimated delivery date is September 25, 2019. heart rate was 149 beats per minute. Subchorionic hemorrhage is not seen. Unremarkable left ovary is seen. Left ovarian torsion was excluded. Rightovary was not visualized. Adnexal mass or cul-de-sac fluid is not identified. IMPRESSION: Single viable intrauterine with estimated age of 11 weeks and 4 days. Estimated deliverydate is September 25, 2019. Subchorionic hemorrhage not seen. Reported By Yonas Kelsey MD on 03/11/19 0955 Signed By Yonas Kelsey MD on 03/14/19 1319 Date Time CC: Yonas Kelsey MD; No Family PHYS Provided Techn: CARAI Trans Dt/Tm: Trans by: DT Prt Dt/Tm: [phone]: Total DLP = 0.00 mGy-cm : Total Radiation Dose = 0.0000 mSv Lifetime Dose: 0 mSv Name Value Range Interpretation Code Description Data [place] rce(s) Supporting Document(s) ID Date Data Source [id number] 03/04/2019 04:36:00 PM [facility] Not Collected Reason:: UNABLE TO LEAVE E NOUGH SPECIMEN TO DO TESTTEST(S) ORDERED:: MEDWATCH Name Value Range Interpretation Code Description Data [facility] rce(s) Supporting Document(s) Laboratory [facility] Laboratory studies (set) UNABLE TO LEAVE ENOUGH SPECIMEN TO DO TEST [facility] Test(s) that were ordered [facility] were not collected. ID Date Data Source [id number] 03/05/2019 01:58:00 PM [facility] Less than 10,000 CFU/MLStaph spp. coag n egProbable contaminants no senst done Method of Collection:: Clean Catch Name Value Range Interpretation Code Description Data [place] rce(s) Supporting Document(s) ID Date Data Source [id number] 03/04/2019 04:43:00 PM [facility] Less than 10,000 CFU/MLStaph spp. coag n egProbable contaminants no senst done Method of Collection:: Clean Catch Name Value Range Interpretation Code Description Data [place] rce(s) Supporting Document(s) Color of Urine [facility] Appearance of Urine CLEAR [facility] pH of Urine by Test strip 5.5 5-8 [facility] Specific gravity of Urine by Refractometry 1.031 1.005 -1.030 Abnormal (applies to non-numeric results) [facility] Leukocyte esterase [Presence] in Urine by Test strip NEGAT PA [facility] Nitrite [Presence] in Urine by Test strip NEGATIVE [facility] Protein [Presence] in Urine by Test strip NEGATIVE [facility] Glucose [Mass/volume] in Urine by Automated test strip NEGATIVE NEG ATIVE [facility] Ketones [Presence] in Urine by Test strip NEGATI VE Abnormal (applies to non- numeric results) [facility] Urobilinogen [Presence] in Urine 0.2-1 EU/dl [facility] Bilirubin.total [Presence] in Urine by Automated test strip NEGATIVE [facility] Erythrocytes [#/volume] in Urine by Test strip NEGATIVE NEGATIVE [facility] URINE MICROSCOPIC ADDED NO [facility] ID Date Data Source [id number] 03/04/2019 04:36:00 PM EST [facility] Blood Lead Purpose: IntialBlood Lead Typ e: VenousPatient : NoPatient Race: White\\ Blood Lead Purpose: IntialBlood Lead Typ e: VenousPatient : NoPatient Race: White\\ Blood Lead Purpose: IntialBlood Lead Typ e: VenousPatient : NoPatient Race: White\\ Name Value Range Interpretation Code Description Data [place] rce(s) Supporting Document(s) Leukocytes [#/volume] in Blood by Automated count 10.8 10*3/uL 4.45-10.71 Above high normal [facility] Erythrocytes [#/volume] in Blood by Automated count 4.99 10*6/uL 4.20 -5.40 N [facility] Hemoglobin [Moles/volume] in Blood 13.4 g/dL 10.7-15.4 N [facility] Hematocrit [Volume Fraction] of Blood by Automated count 40.1 % 3 7-47 N [facility] Erythrocyte mean corpuscular volume [Ent itic volume] in Cord blood by Automated count 80.4 fL 80-[address] [facility] ital Erythrocyte mean corpuscular hemoglobin [Entitic mass] by Automated count 26.9 pg 27-31 Below low normal [facility] pital Erythrocyte mean corpuscular hemoglobin concentration [Mass/volume] in Cord blood 33.4 g/dL 33-[address] [facility] ital Erythrocyte distribution width [Entitic volume] by Automated count 14 % 11-15 N [facility] Platelets [#/volume] in Blood by Automated count 256 10*3/uL 130-472 N [facility] Platelet mean volume [Entitic volume] in Blood 8.9 fL 9.1-13. 1 Below low normal [facility] Neutrophils/100 leukocytes in Blood by Automated count 74.6 % 41- 77 N [facility] Neutrophils [#/volume] in Blood by Automated count 8.0 U 1.7-7.6 Above high normal [facility] Lymphocytes/100 leukocytes in Blood by Automated count 19.0 % 14- 46 N [facility] Lymphocytes [#/volume] in Blood by Automated count 2.1 U 0.6-4.6 N [facility] Monocytes/100 leukocytes in Blood by Automated count 5.8 % 4-12 N [facility] Monocytes [#/volume] in Blood by Automated count 0.6 U 0.2-1.2 N [facility] Eosinophils/100 leukocytes in Blood by Automated count 0.1 % 0-7 N [facility] Eosinophils [#/volume] in Blood by Automated count 0.0 U 0.0-0.5 N [facility] Basophils/100 leukocytes in Blood by Automated count 0.3 % 0.4-1.3 Below low normal [facility] Basophils [#/volume] in Blood by Automated count 0.0 U 0.0-0.2 N [facility] NUCLEATED RED BLOOD CELL 0 % [facility] NUCLEATED RED BLOOD CELL# 0 U [facility] Immature granulocytes [Presence] in Blood by Automated count 0-2 N [facility] Immature granulocytes [#/volume] in Blood by Automated count 0.0 U 0-0.1 N [facility] Manual Differential panel - Blood NO [facility] ID Date Data Source [id number] 03/04/2019 05:11:00 PM EST [facility] Blood Lead Purpose: IntialBlood Lead Typ e: VenousPatient : NoPatient Race: White\\ Blood Lead Purpose: IntialBlood Lead Typ e: VenousPatient : NoPatient Race: White\\ Blood Lead Purpose: IntialBlood Lead Typ e: VenousPatient : NoPatient Race: White\\ Name Value Range Interpretation Code Description Data [facility] rce(s) Supporting Document(s) Thyrotropin [Units/volume] in Serum or Plasma by Detec tion limit <= 0.005 mIU/L 0.71 u[iU]/mL 0.35-5.50 [facility] al ID Date Data Source [id number] 03/06/2019 06:05:00 AM [facility] Blood Lead Purpose: IntialBlood Lead Typ e: VenousPatient : NoPatient Race: White\\ Blood Lead Purpose: IntialBlood Lead Typ e: VenousPatient : NoPatient Race: White\\ Blood Lead Purpose: IntialBlood Lead Typ e: VenousPatient : NoPatient Race: White\\ Name Value Range Interpretation Code Description Data Socorro rce(s) Supporting Document(s) Hepatitis C virus Ab Signal/Cutoff in Serum or Plasma by Immunoassay 0.2 s/co ratio 0.0-0.9 [facility] l Negati ve: < 0.8 Indeterminate: 0.8 - 0.9 Positive: > 0.9 The CDC recommends that a positive HCV antibody result be followed up with a HCV Nucleic Acid Amplification test (106313).Performed at: [facility] [id number] Director: Alysa Gonzalez MD, Phone: [phone] ID Date Data Source [id number] 03/06/2019 08:06:00 PM [facility] Blood Lead Purpose: IntialBlood Lead Typ e: VenousPatient : NoPatient Race: White\\ Blood Lead Purpose: IntialBlood Lead Typ e: VenousPatient : NoPatient Race: White\\ Blood Lead Purpose: IntialBlood Lead Typ e: VenousPatient : NoPatient Race: White\\ Name Value Range Interpretation Code Description Data Socorro rce(s) Supporting Document(s) HIV 1+2 Ab+HIV1 p24 Ag [Presence] in Serum or Plasma by Immu noassay Non Reactive [facility] Performed at: RN - [facility] [address] [id number] Director: Alysa Gonzalez MD, Phone: [phone] at: - [facility] [id number] [place], [place] [id number] Director: Agnes Baker MD, Phone: [phone] Treponema pallidum Ab [Presence] in Serum by Immunoassay N on Reactive [facility] Please note reference in terval change Hepatitis B virus surface Ag [Presence] in Serum or Plasma b y Immunoassay Negative [facility] Rubella virus IgG Ab [Units/volume] in Serum or Plasma by Immunoassay 2.65 index Immune >0.[facility] Non-immu ne <0.90 Equivocal 0.90 - 0.99 Immune >0.99 ID Date Data Source [id number] 03/06/2019 06:05:00 AM [facility] Blood Lead Purpose: IntialBlood Lead Typ e: VenousPatient : NoPatient Race: White\\ Blood Lead Purpose: IntialBlood Lead Typ e: VenousPatient : NoPatient Race: White\\ Blood Lead Purpose: IntialBlood Lead Typ e: VenousPatient : NoPatient Race: White\\ Name Value Range Interpretation Code Description Data Socorro rce(s) Supporting Document(s) Lead [Mass/volume] in Venous blood <1 ug/dL 0-4 [facility] Analysis by inductively coupled plasma/m assspectrometry (ICP/MS) Environmental Exposure: WHO Recommendation <20 Occupational Exposure: [employer] Lead Std 40 LIU 30 Detection Limit = 1 ID Date Data Source [id number] 03/06/2019 06:05:00 AM [facility] Blood Lead Purpose: IntialBlood Lead Typ e: VenousPatient : NoPatient Race: White\\ Blood Lead Purpose: IntialBlood Lead Typ e: VenousPatient : NoPatient Race: White\\ Blood Lead Purpose: IntialBlood Lead Typ e: VenousPatient : NoPatient Race: White\\ Name Value Range Interpretation Code Description Data Socorro rce(s) Supporting Document(s) Varicella zoster virus IgG Ab [Units/volume] in Serum by Imm unoassay 1445 index Immune >165 [facility] Negative <135 Equivocal 135 - 165 Positive >165A positive result generally indicates exposure to thepathogen or administration of specific immunoglobulins,but it is not indication of active infection or stageof disease. ID Date Data Source [id number] 03/04/2019 06:13:00 PM [facility] @03/04/19 1813: Pre Op? added. RFLXG = T RX.@03/04/19 1813: Pretransfusion? added. RFLXG = TRX.@03/04/19 1813: Inpatient? added. RFLXG = TRX. Name Value Range Interpretation Code Description Data Socorro rce(s) Supporting Document(s) Blood bank studies (set) No A [facility] @To complete the specimen, you MUST pull the specimen back@up and answer the Preop, Transfusion and Inpatient@questions. Perform a second Type if needed. Blood Type [facility] Antibody Screen (PN) NEGATIVE [facility] ID Date Data Source [id number] 03/04/2019 06:13:00 PM [facility] @03/04/19 1813: Pre Op? added. RFLXG = T RX.@03/04/19 1813: Pretransfusion? added. RFLXG = TRX.@03/04/191812: Inpatient? added. RFLXG = TRX. Name Value Range Interpretation Code Description Data Socorro rce(s) Supporting Document(s) Pre Op? No [facility] ID Date Data Source [id number] 03/04/2019 06:13:00 PM [facility] @03/04/19 1813: Pre Op? added. RFLXG = T RX.@03/04/19 1813: Pretransfusion? added. RFLXG = TRX.@03/04/191812: Inpatient? added. RFLXG = TRX. Name Value Range Interpretation Code Description Data Socorro rce(s) Supporting Document(s) Pretransfusion? No [facility] ID Date Data Source [id number] 03/04/2019 06:13:00 PM [facility] @03/04/19 1813: Pre Op? added. RFLXG = T RX.@03/04/19 1813: Pretransfusion? added. RFLXG = TRX.@03/04/19 1813: Inpatient? added. RFLXG = TRX. Name Value Range Interpretation Code Description Data Socorro rce(s) Supporting Document(s) Inpatient? No [facility] ID Date Data Source [id number] 03/07/2019 08:06:00 PM EST [facility] NegativeNegativePerformed at: [facility] [place] [id number] Director: Alysa Gonzalez MD, Phone: [phone] Name Value Range Interpretation Code Description Data Socorro rce(s) Supporting Document(s) Trichomonas vaginalis DNA [Presence] in Unspecified specimen by Probe and target amplification method Negative [facility] Performed at: [facility] [address] [id number] Director: Alysa Gonzalez MD, Phone: [phone] Gardnerella vaginalis rRNA [Presence] in Genital specimen by DNA probe Negative [facility] Manisha sp rRNA [Presence] in Vaginal fluid by DNA probe N egative [facility] ID Date Data Source [id number] 03/07/2019 08:06:00 PM EST [facility] NegativeNegativePerformed at: [facility] [address] [id number] Director: Alysa Gonzalez MD, Phone: [phone] Name Value Range Interpretation Code Description Data Socorro rce(s) Supporting Document(s) Procedure Social History Code Duration Value Status Description Data Source(s ) 09/25/2019 12:00:00 AM EDT [facility] 03/04/2019 03:24:00 PM EST Former smoker completed Former smoker [facility] Smoking 03/04/2019 03:24:00 PM EST Former smoker completed Former smoker [facility] Vital Signs ID Date Data Source UNK Name Value Range Interpretation Code Description Data Source(s) Diastolic blood pressure 90 mm[Hg] 90 mm[Hg] [facility] ([facility]) Systolic blood pressure 124 mm[Hg] 124 mm[Hg] M [facility] ([facility]) Body weight 265.00 [lb_av] 265.00 [lb_av] [facility] T ([facility]) Diastolic blood pressure 78 mm[Hg] 78 mm[Hg] [facility] ([facility]) Systolic blood pressure 110 mm[Hg] 110 mm[Hg] [facility] ([facility]) Body weight 268.00 [lb_av] 268.00 [lb_av] [facility] ([facility]) Diastolic blood pressure 82 mm[Hg] 82 mm[Hg] [facility] ([facility]) Systolic blood pressure 110 mm[Hg] 110 mm[Hg] [facility] ([facility]) Body weight 265.00 [lb_av] 265.00 [lb_av] [facility] ([facility]) Diastolic blood pressure 70 mm[Hg] 70 mm[Hg] [facility] ([facility]) Systolic blood pressure 104 mm[Hg] 104 mm[Hg] [facility] ([facility]) Body weight 264.00 [lb_av] 264.00 [lb_av] [facility] ([facility]) Diastolic blood pressure 66 mm[Hg] 66 mm[Hg] [facility] ([facility]) Systolic blood pressure 104 mm[Hg] 104 mm[Hg] [facility] ([facility]) Body weight 253.00 [lb_av] 253.00 [lb_av] [facility] ([facility]) Diastolic blood pressure 102 mm[Hg] 102 mm[Hg] [facility] ([facility]) Systolic blood pressure 148 mm[Hg] 148 mm[Hg] [facility] ([facility]) Body weight 248.00 [lb_av] 248.00 [lb_av] [facility] T ([facility]) Diastolic blood pressure 64 mm[Hg] 64 mm[Hg] [facility] ([facility]) Systolic blood pressure 104 mm[Hg] 104 mm[Hg] [facility] ([facility]) Body weight 247.00 [lb_av] 247.00 [lb_av] [facility] ([facility]) Diastolic blood pressure 60 mm[Hg] 60 mm[Hg] [facility] ([facility]) Systolic blood pressure 104 mm[Hg] 104 mm[Hg] [facility] ([facility]) Body weight 246.00 [lb_av] 246.00 [lb_av] [facility] ([facility]) Body weight 236.00 [lb_av] 236.00 [lb_av] [facility] ([facility]) Body height [Percentile] 86 % 86 % [facility] ([facility]) Body height 67 [in_i] 67 [in_i] [facility] 5'7" Diastolic blood pressure 70 mm[Hg] 70 mm[Hg] [facility] ([facility]) Systolic blood pressure 110 mm[Hg] 110 mm[Hg] [facility] ([facility]) Body mass index (BMI) [Ratio] 37.0 kg/m2 37.0 k g/m2 [facility] ([facility]) Body mass index (BMI) [Percentile] 98 % 9 8 % [facility] ([facility]) Body height [Percentile] 81 % 81 % [facility] ([facility]) Body height 66.50 [in_i] 66.50 [in_i] [facility] ([facility]) 5'6.50" Body weight 106.199 kg 106.199 kg [facility] ([facility]) Body weight 234.12 [lb_av] 234.12 [lb_av] [facility] T ([facility]) Oxygen saturation in Arterial blood by Pulse oximetry 98 % 98 % [facility] Respiratory rate 20 /min 20 /min [facility] ( [facility]) Body temperature 98.1 [degF] 98.1 [degF] [facility] ([facility]) Heart rate 107 /min 107 /min [facility] ([facility]) Diastolic blood pressure 83 mm[Hg] 83 mm[Hg] [facility] ([facility]) Systolic blood pressure 121 mm[Hg] 121 mm[Hg] [facility] ([facility]) ID Date Data Source [id number] 10/06/2019 04:12:19 PM EDT [facility] Name Value Range Interpretation Code Description Data Source(s) WEIGHT RECORDED 117.93 KG 117.93 KG [facility] Height 167.64 CM 167.64 CM [facility] ID Date Data Source [id number] 11/10/2019 01:28:46 PM EDT [facility] Name Value Range Interpretation Code Description Data Source(s) status [Interpretation] - Reported Y Y [facility]
[2020-04-28] MEDS ORDERED: AUGMENTIN 875 MG TAB PO ONE (15:30)
[2020-04-28] MEDS ORDERED: IBUPROFEN 600MG TAB PO ONE (15:30)
[2020-04-28] MEDS ORDERED: AUGM875T28 PO (15:31)
[2020-04-28] MEDS ORDERED: IBUP80TA PO (15:31)
--- OUTSIDE RECORDS SUMMARY | 2020-04-28 15:47 | CCD ---
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 Name Role Phone GONZALEZ, JESS Unavailable Unavailable [...] LUZ MARIA MD Unavailable Unavailable LERUM, EDY MINI LAB OPERATOR Unavailable Unavailable LERUM, EDY MINI LAB OPERATOR Unavailable Unavailable LERUM, EDY MINI LAB OPERATOR Unavailable Unavailable LERUM, EDY MINI LAB OPERATOR Unavailable Unavailable LERUM, EDY MINI LAB OPERATOR Unavailable Unavailable LERUM, EDY MINI LAB OPERATOR Unavailable Unavailable LERUM, EDY MINI LAB OPERATOR Unavailable Unavailable LERUM, EDY MINI LAB OPERATOR Unavailable Unavailable LERUM, EDY MINI LAB OPERATOR Unavailable Unavailable LERUM, EDY MINI LAB OPERATOR Unavailable Unavailable LERUM, EDY MINI LAB OPERATOR Unavailable Unavailable LERUM, EDY MINI LAB OPERATOR Unavailable Unavailable LERUM, EDY MINI LAB OPERATOR Unavailable Unavailable LERUM, EDY MINI LAB OPERATOR Unavailable Unavailable LERUM, EDY MINI LAB OPERATOR Unavailable Unavailable LERUM, EDY MINI LAB OPERATOR Unavailable Unavailable LERUM, EDY MINI LAB OPERATOR Unavailable Unavailable LERUM, EDY MINI LAB OPERATOR Unavailable Unavailable Shambo, J Elisa PA Unavailable [...] GARRETT MD Unavailable Unavailable SAMUEL, M NARGIS MINI LAB OPERATOR Unavailable Unavailable SAMUEL, M NARGIS MINI LAB OPERATOR Unavailable Unavailable SAMUEL, M NARGIS MINI LAB OPERATOR Unavailable Unavailable SAMUEL, M NARGIS MINI LAB OPERATOR Unavailable Unavailable SAMUEL, M NARGIS MINI LAB OPERATOR Unavailable Unavailable SAMUEL, M NARGIS MINI LAB OPERATOR Unavailable Unavailable SAMUEL, M NARGIS MINI LAB OPERATOR Unavailable Unavailable SAMUEL, M NARGIS MINI LAB OPERATOR Unavailable Unavailable SAMUEL, M NARGIS MINI LAB OPERATOR Unavailable Unavailable SAMUEL, M NARGIS MINI LAB OPERATOR Unavailable Unavailable SAMUEL, M NARGIS MINI LAB OPERATOR Unavailable Unavailable SAMUEL, M NARGIS MINI LAB OPERATOR Unavailable Unavailable SAMUEL, M NARGIS MINI LAB OPERATOR Unavailable Unavailable SAMUEL, M NARGIS MINI LAB OPERATOR Unavailable Unavailable SAMUEL, M NARGIS MINI LAB OPERATOR Unavailable Unavailable SAMUEL, M NARGIS MINI LAB OPERATOR Unavailable Unavailable SAMUEL, M NARGIS MINI LAB OPERATOR Unavailable Unavailable SAMUEL, M NARGIS MINI LAB OPERATOR Unavailable Unavailable SAMUEL, M NARGIS MINI LAB OPERATOR Unavailable Unavailable SAMUEL, M NARGIS MINI LAB OPERATOR Unavailable Unavailable SAMUEL, M NARGIS MINI LAB OPERATOR Unavailable Unavailable SAMUEL, M NARGIS MINI LAB OPERATOR Unavailable Unavailable SAMUEL, M NARGIS MINI LAB OPERATOR Unavailable Unavailable GIUSTRA, Esteban WRIGHT MD Unavailable [...] J Elisa PA Unavailable Unavailable Shambo, J Eilsa PA Unavailable Unavailable Shambo, J Elisa PA [...] J Elisa PA Unavailable Unavailable LERUM, EDY MINI LAB OPERATOR Unavailable Unavailable LERUM, EDY MINI LAB OPERATOR Unavailable Unavailable LERUM, EDY MINI LAB OPERATOR Unavailable Unavailable LERUM, EDY MINI LAB OPERATOR Unavailable Unavailable LERUM, EDY MINI LAB OPERATOR Unavailable Unavailable LERUM, EDY MINI LAB OPERATOR Unavailable Unavailable LERUM, EDY MINI LAB OPERATOR Unavailable Unavailable LERUM, EDY MINI LAB OPERATOR Unavailable Unavailable LERUM, EDY MINI LAB OPERATOR Unavailable Unavailable LERUM, EDY MINI LAB OPERATOR Unavailable Unavailable LERUM, EDY MINI LAB OPERATOR Unavailable Unavailable LERUM, EDY MINI LAB OPERATOR Unavailable Unavailable LERUM, EDY MINI LAB OPERATOR Unavailable Unavailable LERUM, EDY MINI LAB OPERATOR Unavailable Unavailable LERUM, EDY MINI LAB OPERATOR Unavailable Unavailable LERUM, EDY MINI LAB OPERATOR Unavailable Unavailable LERUM, EDY MINI LAB OPERATOR Unavailable Unavailable LERUM, EDY MINI LAB OPERATOR Unavailable Unavailable Re-disclosure Warning The records that [...] is protected by Article 27-F of the [facility] Public Health law. If you continue you may have access to information: Regarding HIV / AIDS; Provided by facilities licensed or operated by the [facility] Office of Mental Health; or Provided by the [facility] Office for People With Developmental Disabilities. If such information is present, then the following [facility] mandated warning applies: This information has [...] law may result in a fine or prison sentence or both. A general authorization for the release of medical or other information is NOT sufficient authorization for further disc losure. Allergies and Adverse Reactions Type Description Substance Reaction Status Data Source(s ) Drug allergy Nystatin Nystatin [facility] DRUG INGREDI NYSTATIN NYSTATIN Rash [facility] No Known Environmental Allergies No Known Environmental Al lergies [facility] No Known Food Allergies No Known Food Allergies [facility] BRANDNAME NYSTATIN/TRIAMCINOLONE NYSTATIN/TRIAMCINOLONE [facility] Drug allergy nystatin nystatin [facility] Family History Family Member Name Family Member Gender Family Member Status Date o f Status Description Data Source(s) Unknown Female Problem [facility] ([facility]) Encounters Encounter Providers Location Date Indications Data Source(s ) Emergency Attender: MD REJI Hamilton: NONE NONE NPAdmitter: MD REJI GALVEZ DOConsultant: NONE NONE MINI LAB OPERATOR OP-EMERGENCY DEPARTMENT 02/09/20 10:18:00 PM EST - 02/10/2020 01:35:00 AM EST [facility] Patient discharged. Outpatient Attender: NARGIS BAKER NP [facility] 02:15:00 PM EDT [facility] ([facility]) Outpatient Attender: ORGANIZATION N PI ALIASES Admitter: ORGANIZATION NPI ALIASES OP-OB 11/26/2019 01:58: 00 PM EDT - 11/26/2019 11:59:00 PM EDT [facility] Patient discharged. Outpatient Attender: ORGANIZATION N PI ALIASES Admitter: ORGANIZATION NPI ALIASES OP-OB 11/10/2019 01:28: 00 PM EDT - 11/10/2019 11:59:00 PM EDT [facility] Patient discharged. Inpatient Attender: ADRIANA WILSON MDAdmitter: ADRIANA PAZ MD OP-4S 09/26/2019 12:00:00 AM EDT - 09/28/2019 05:30:00 PM EDT [facility] Patient discharged. Outpatient Attender: NARGIS BAKER NP [facility] 01:45:00 PM EDT [facility] ([facility]) Outpatient Attender: CUCA PRADO MD [facility] 09/07 11:00:00 AM EDT [facility] ([facility]) Outpatient Attender: LUZ MARIA CONTI MD 09/16/2019 07:24:41 P M EDT [facility] Outpatient Attender: ORGANIZATION N PI ALIASES Admitter: ORGANIZATION NPI ALIASES OP-4S 09/12/2019 03:53: 00 PM EDT - 09/12/2019 03:58:00 PM EDT [facility] Patient discharged. Outpatient Attender: NARGIS BAKER NP [facility] 01:00:00 PM EDT [facility] ([facility]) Outpatient Attender: LUZ MARIA CONTI MD 09/06/2019 12:02:39 A M EDT [facility] Outpatient Attender: ORGANIZATION N PI ALIASES Admitter: ORGANIZATION NPI ALIASES OP-4S 08/26/2019 06:19: 00 PM EDT - 08/26/2019 06:43:00 PM EDT [facility] Patient discharged. Outpatient Attender: NARGIS BAKER NP [facility] 02:30:00 PM EDT [facility] ([facility]) Outpatient Referrer: EDY GAN NP 08/13/2019 12:00:00 AM [facility] Outpatient Referrer: EDY GAN NP 08/13/2019 12:00:00 AM [facility] Outpatient Referrer: EDY GAN NP 08/11/2019 12:00:00 AM [facility] Outpatient Referrer: EDY GAN NP 08/11/2019 12:00:00 AM [facility] Outpatient Attender: CUCA PRADO MDAdmitter: CUCA PRADO MD OP-4S 08/08/2019 02:17:00 AM EDT - 08/08/2019 04:30:00 AM EDT [facility] Patient discharged. Outpatient Attender: NARGIS BAKER NP [facility] 02:30:00 PM EDT [facility] ([facility]) Outpatient Attender: ORGANIZATION N PI ALIASES Admitter: ORGANIZATION NPI ALIASES OP-4S 07/28/2019 10:54: 00 PM EDT - 07/28/2019 11:43:00 PM EDT [facility] Patient discharged. Emergency Attender: MD HERMINIO BRYSON MDA ttender: NONE NONE NPAdmitter: MD HERMINIO BRYSON MD OP-EMERGENCY DEPARTMENT 07/17/2019 02:16:00 PM EDT - 07/17/2019 04:25:00 PM EDT [facility] Patient discharged. Outpatient Attender: EDY GAN NP [facility] 01:00:00 PM EDT [facility] ([facility]) Outpatient Attender: EDY GAN NP [facility] 01:15:00 PM EDT [facility] ([facility]) Outpatient Attender: EDY GAN NP [facility] 02:00:00 PM EDT [facility] ([facility]) Outpatient Attender: ORGANIZATION N PI ALIASES Admitter: ORGANIZATION NPI ALIASES OP-OP 06/09/2019 09:35: 00 AM EST - 09/26/2019 07:00:00 AM EDT [facility] Patient discharged. Outpatient Attender: EDY GAN NP [facility] 08:30:00 AM EST [facility] ([facility]) Outpatient Attender: Elisa Kc [facility] 03/12 09:50:00 AM EST [facility] Outpatient Attender: Elisa Kc PAConsultant: FELISA PHELPS MD 03/12/2019 09:31:00 AM EST - 03/12/2019 09:31:00 AM EST [facility] Outpatient Attender: Cecilia Heck DO 03/10/2019 03:26 :00 PM EST DATING [facility] DATING Outpatient Attender: LUZ MARIA GODOY 03/05/2019 11:23:01 A M EST [facility] Outpatient Attender: Cecilia Heck DO 03/04/2019 04:10 :00 PM EST Z32.01 [facility] Z32.01 Outpatient Attender: JESS Gusman nder: Elisa Kc PAConsultant: FELISA GARRETT MD 01/31/2019 12:38:00 PM EDT - 01/31/2019 12:38:00 PM EDT [facility] Outpatient Attender: JESS Gusman nder: Elisa Kc PAConsultant: FELISA GARRETT MD 01/30/2019 10:34:00 AM EDT - 01/30/2019 10:34:00 AM EDT [facility] Outpatient Attender: JESS Gusman nder: Elisa Kc PAConsultant: FELISA GARRETT MD 01/28/2019 04:24:00 PM EDT - 01/28/2019 04:24:00 PM EDT [facility] Outpatient Attender: Elisa Kc PAConsultant: FELISA PHELPS MD 01/27/2019 02:00:00 PM EDT - 01/27/2019 02:00:00 PM EDT [facility] Immunizations Vaccine Date Status Description Data Source(s) New in 2011. IIV4 07/09/2019 01:32:00 PM EDT completed [facility] ([facility]) Tdap 07/09/2019 01:32:00 PM EDT completed M EDENT ([facility]) Medications Medication Brand Name Start Date Product Form Dose Route Admi nistrative Instructions Pharmacy Instructions Status Indications Reaction Description Data Source(s) 11/10/2019 12:00:00 AM EDT ORAL active [facility] ([facility]) Escitalopram 10 MG Oral Tablet [Lexapro] Lexapro 11/10/2019 12:00: 00 AM EDT ORAL active [facility] ([facility]) Therapeutic Administration 07/17/2019 12:00:00 AM EDT completed [facility] ([facility]) Medication administered onsite Sertraline 50 MG Oral Tablet [Zoloft] Zoloft 07/09/2019 12:00:00 AM EDT ORAL completed [facility] ([facility]) ferrous sulfate 325 MG Oral Tablet Iron High-Potency 06/09/2019 12:00:00 AM EST ORAL active [facility] ( [facility]) Complete 06/09/2019 12:00:00 AM EST ORAL active [facility] ([facility]) + Complete Multi/Dha/Choline/Folate 03/12/2019 12:0 0:00 AM EST active [facility] ([facility]) Insurance Providers Payer name Policy type / Coverage type Policy ID Covered green party ID Covered green party's relationship to connelly Policy Connelly Plan Information WAYNE [id number] SP [id number] SELF PAY ONLY [id number] SP [id number] WAYNE [id number] SP [id number] WAYNE [id number] SELF [id number] [employer]ureau RYLEE [id number] SELF [id number] Self Pay P [id number] S [id number] [facility] I [id number] Self [id number] MEDICAID M [id number] Self [id number] MEDICAID [id number] SP [id number] MEDICAID [id number] SP [id number] UNHC COMMUNITY PLAN MCDHMO [id number] SP [id number] MEDICAID [id number] SP [id number] UNHC AMERICHOICE XIX -HMO [id number] 18 [id number] UNHC COMMUNITY PLAN XIX [id number] 18 [id number] Medicaid S [id number] S [id number] Managed Care - [facility] Community Plan P [id number] S [id number] Medicaid S [id number] S [id number] Managed Care - Community Plan [facility] P [id number] S [id number] D Managed Care [facility] O [id number] S [id number] Managed Care - Community Plan [facility] P [id number] S [id number] [facility] BCYO S [id number] S [id number] UNHC COMMUNITY PLAN MCDHMO [id number] SP [id number] Self Pay P UNAVAILABLE S UNAVAILA BLE Managed Care - Community Plan [facility] O [id number] S [id number] Medicaid O [id number] S [id number] Managed Care - Community Plan [facility] P [id number] S [id number] Medicaid S [id number] S [id number] Managed Care - Community Plan [facility] P [id number] S [id number] MEDICAID M [id number] S [id number] [place] Medig[place] Part B [id number] Self [id number] [place] [id number] Self [id number] [facility] Rylee/MCR Medigap Part B [id number] Self [id number] [facility] Community Plan Medigap Part B [id number] Family Dependent [id number] [place] [id number] Family Dependent D [id number] MEDICAID M [id number] Self [id number] EXCELLUS I [id number] Self [id number] [facility](MCAID) O [id number] S [id number] [facility] Community Plan Medigap Part B [id number] Self [id number] [place] [id number] Self [id number] Managed Care - Community Plan [facility] P [id number] S [id number] United CR/Community [facility] (HMO) [id number] Self [id number] [place] Medig[place] Part B [id number] Self [id number] Medicaid S [id number] S [id number] UN COMMUNITY PLAN MCDO [id number] SP [id number] Managed Care - Community Plan [facility] P [id number] S [id number] Medicaid P [id number] S [id number] [facility] MEDICAID [id number] Hannah [id number] Managed Care - Community Plan [facility] P [id number] S [id number] Medicaid S [id number] S [id number] Managed Care - Community Plan [facility] P [id number] S [id number] D Managed Care [facility] O [id number] S [id number] Managed Care [facility] O [id number] S [id number] zzMedicaid FFS O [id number] Medicaid Dental O [id number] S [id number] BLUE CROSS [place] PLAN [id number] SP [id number] Medicaid O [id number] S [id number] Managed Care BCBS O [id number] S [id number] Managed Care BCBS P [id number] S [id number] MEDICAID REF AMBULAT W [id number] S [id number] BLUE CHOICE OPTION O [id number] S [id number] MEDICAID W [id number] S [id number] [facility] [id number] MEDICAID-PHYSICIAN [id number] D [id number] [facility] [id number] MEDICAID - CLINIC [id number] Problems, Conditions, and Diagnoses Code Display Name Description Problem Type Effective Dates Data Source(s) R10.32 Left lower quadrant pain LEFT LOWER QUADRANT PAIN Diag nosis 02/13/2020 03:23:00 PM [facility] R10.31 Right lower quadrant pain RIGHT LOWER QUADRANT PAIN Di agnosis 02/13/2020 03:23:00 PM [facility] F53.0 DEPRESSION DEPRESSION Diagnosis 12/02/2019 07:33:00 AM EDT [facility] Z13.89 Encounter for screening for other disord er ENCOUNTER FOR SCREENING FOR OTHER DISORDER Diagnosis [facility] Encounter for routine follow- up ENCOUNTER FOR ROUTINE FOLLOW-UP Diagnosis 11/20/2019 07:59:00 AM EDT [facility] Z34.83 Encounter for supervision of other tad l , third trimester ENCOUNTER FOR SUPERVISION OF OTHER NORMAL , THIRD TRIMESTER Diagnosis 10/09/2019 01:59:00 PM EDT [facility] Z3A.38 38 weeks gestation of 38 WEEKS GESTATI ON OF Diagnosis 10/09/2019 01:58:00 PM EDT [facility] Z37.0 Single live SINGLE LIVE Diagnosis 10/06/2019 03:58:00 PM EDT [facility] Z3A.40 40 weeks gestation of 40 WEEKS GESTATI ON OF Diagnosis 10/06/2019 03:58:00 PM EDT [facility] Z91.19 Patient's noncompliance with other medic al treatment and regimen PATIENT'S NONCOMPLIANCE WITH OTHER MEDICAL TREATMENT AND REGIMEN Diagnosis 10/06/2019 03:58:00 PM EDT [facility] F90.9 Attention-deficit hyperactivity disorder , unspecified type ATTENTION- DEFICIT HYPERACTIVITY DISORDER, UNSPECIFIED TYPE Diagnosis 10/05 03:58:00 PM EDT [facility] O99.344 Other mental disorders complicating chil dbirth OTHER MENTAL DISORDERS COMPLICATING CHILDBIRTH Diagnosis 10/06/2019 03:58:00 PM EDT [facility] O70.1 Second degree perineal laceration during delivery SECOND DEGREE PERINEAL LACERATION DURING DELIVERY Diagnosis 10/06/2019 03:58:00 PM EDT [facility] Z67.41 Type O blood, Rh negative TYPE O BLOOD, RH NEGATIVE Di agnosis 10/06/2019 03:58:00 PM EDT [facility] O26.893 Other specified related condit ions, third trimester OTHER SPECIFIED RELATED CONDITIONS, THIRD TRIMESTER Diagnosis 10/06/2019 03:58:00 PM EDT [facility] O77.0 Labor and delivery complicated by meconi um in amniotic fluid LABOR AND DELIVERY COMPLICATED BY MECONIUM IN AMNIOTIC FLUID Diagnosis 03:58:00 PM EDT [facility] O47.1 False labor at or after 37 completed wee ks of gestation FALSE LABOR AT OR AFTER 37 COMPLETED WEEKS OF GESTATION Diagnosis 09/18/2019 03:50:00 PM EDT [facility] Z3A.35 35 weeks gestation of 35 WEEKS GESTATI ON OF Diagnosis 08/28/2019 11:27:00 AM EDT [facility] O36.8130 Decreased movements, t hird trimester, not applicable or unspecified DECREASED MOVEMENTS, THIRD TRIMEST ER, NOT APPLICABLE OR UNSPECIFIED Diagnosis 08/28/2019 11:27:00 AM EDT [facility] Z3A.33 33 weeks gestation of 33 WEEKS GESTATI ON OF Diagnosis 08/12/2019 12:41:00 PM EDT [facility] R10.12 Left upper quadrant pain LEFT UPPER QUADRANT PAIN Diag nosis 08/12/2019 12:41:00 PM EDT [facility] Z3A.31 31 weeks gestation of 31 WEEKS GESTATI ON OF Diagnosis 07/29/2019 10:41:00 AM EDT [facility] Z3A.30 30 weeks gestation of 30 WEEKS GESTATI ON OF Diagnosis 07/24/2019 11:11:00 AM EDT [facility] R51 Headache HEADACHE Diagnosis 07/24/2019 11:11:00 AM ED T [facility] O99.89 Other specified diseases and conditions complicating , childbirth and the puerperium OTHER SPECIFIED DISEASES AND CONDITIONS COMPLICATING , CHILDBIRTH AND THE PUERPERIUM Diagnosis 07/24/2019 11:11:00 AM EDT [facility] Z3A.26 26 weeks gestation of 26 WEEKS GESTATI ON OF Diagnosis 07/14/2019 08:53:00 AM EDT [facility] Z34.82 Encounter for supervision of other tad l , second trimester ENCOUNTER FOR SUPERVISION OF OTHER NORMAL , SECOND TRIMESTER Diagnosis 07/14/2019 08:50:00 AM EDT [facility] B370 Candidal stomatitis Candidal stomatitis Diagnosis 1 05/13/2018 09:31:[address] [facility] J069 Acute upper respiratory infection, unspe cified Acute upper respiratory infection, unspecified Diagnosis 03/12/2019 09:31:00 AM [facility] Surgeries/Procedures Procedure Description Date Indications Data Source(s) Care Only 11/10/2019 12:00:00 AM EDT [facility] ([facility]) Screening for clinical depression is doc umented as being positive and a follow- up plan is documented 11/10/2019 12:00:00 AM EDT [facility] ([facility]) Screening for clinical depression is doc umented as being positive and a follow- up plan is documented 11/10/2019 12:00:00 AM EDT [facility] ([facility]) Therapeutic Administration 07/17/2019 12:00:00 AM EDT [facility] ([facility]) Screening for clinical depression is doc umented as negative, a follow-up plan is not required 07/09/2019 12:00:00 AM EDT MEDEN T ([facility]) Screening for clinical depression is doc umented as negative, a follow-up plan is not required 07/09/2019 12:00:00 AM EDT [facility] T ([facility]) Results ID Date Data Source [id number] 04/17/2020 12:00:00 AM EST [facility] Name Value Range Interpretation Code Description Data Socorro rce(s) Supporting Document(s) SARS-CoV-2 (COVID-19) RNA [Presence] in Respiratory specimen by LAURYN with probe detection Positive for 2019-nCoV [facility] This lab was ordered by [facility] and reported by [facility] ID Date Data Source [id number] 04/08/2020 12:00:00 AM EST [facility] Name Value Range Interpretation Code Description Data Socorro rce(s) Supporting Document(s) SARS-CoV2 Rapid Antigen [facility] This lab was ordered by [facility] and reported by [facility]. ID Date Data Source [id number] 02/09/2020 10:18:00 PM EST [facility] PAGE: [address] [place] [address] [address] [facility] [place] [address] [facility] REC NUM: [id number] : 2000 Med Reconciliation Patient: MEMO CHRISTIAN Medication Reconciliation Report [facility]: [id number] [place] [id number] [phone], FRegistration Date/Time: 02/09/2020 22:18 Weight: 113.3 kgHeight/Length: [...] 15 tablet. Refills: 0. Substitution permitted.Pharmacy - [id number] - [address], [place] [id number]. . -- REJI GALVEZ DOTake ibuprofen (such as Advil, Motrin or Nuprin) according to label instru ctions. Available over the counter. -- REJI GALVEZ DO Name Value Range Interpretation Code Description Data Socorro rce(s) Supporting Document(s) ID Date Data Source [id number] 02/09/2020 10:18:00 PM EST [facility] PAGE: [address] [place] [address] [address] [facility] [place] [address] MED REC NUM: [id number] : 2000 Physician Discharge Report Clinical [facility] [address] [place] [address] Patient: MEMO CHRISTIAN : F : 2000 Age: 19yArrival: 02/09/2020 22:18 Departure: 02/10/2020 01:35 Disposition: Discharge Weight:113.3 kg. Height/Length:66 inches. BMI:40.3. Growth Chart Percentile: Weight:99.3%. Height/Length:74.9% Time Seen: 22:59 02/09/2020. Arrived- By ambulance. Historian- patient and EMS personnel. Supervisory Note: Documentation assistance provided by katie. Information recorded by the scribe was done [...] at this time.). REVIEW OF SYSTEMS PAGE: [address] [place] [address] REC NUM: [id number] : 2000 No chills, sore throat, chest [...] results Test Result Flag Units (Reference) PAGE: [address] [place] [address] REC NUM: [id number] : 2000 , URINE NEGATIVE (NEGATIVE) CT ABD & Pelvis w/o IV Contrast w/o Oral Contrast: (NEIDA: 02/09/2020 23:05)( MsgRcvd 02/09/2020 23:05) New Order AUC Transaction ID : "CDS Override." , Override reason code : "MA" , Override reason description : "Emergency Medical Condition Susp/Confirm". Exam [id number] US Pelvic Transvaginal: (NEIDA: 02/09/2020 23:05)( MsgRcvd [...] unremarkable. No evidence of mass""Electronically Signed By: AFTAB SAEED MDDate: 02/09/2020 23:55 EGFR (CALCULATED): (NEIDA: 02/09/2020 22:55)( MsgRcvd 02/09/2020 23:21) Final results PAGE: [address] [place] [address] NUM: [id number] : 2000 Test Result Flag Units (Reference)ESTIMATED GFR (CALCULATED) EGFR 134 >59 mL/min/1.73m2 EGFR, -AZERBAIJANI 156 >59 mL/min/1.76o8Ydff: Persistent reduction for 3 months or more [...] msecQT Interval: 371 msecQTC Interval: 452 msecP-R-T [place]: 15 - 28 - 43 degrees""Sinus r hythm...normal P axis, V-rate 50- 99Low voltage, precordial leads...precordial leads <1.0mVNormal axis. Normal intervals. No sig. ST changes.""Study Date: ""Electronically Signed By: REJI GALVEZ DODate: 02/09/2020 23:47 PAGE: [address] [place], [place] [address] NUM: [id number] : 2000 CBC w Diff: (NEIDA: 02/09/2020 [...] x10E3/uL (0.0-0.5) BASOPHIL ABSOLUTE 0.0 x10E3/uL PAGE: [address] [place] [address] , [place] [address] [facility] REC NUM: [id number] one : 2000 (0.0-0.2) HYPOCHROMIA 1+ AB [...] RATIO 19.3 (6.0-20.0) GLOBULIN 2.9 g/dl PAGE: [address] [place] [address] [facility] NUM: [id number] : 2000 (2.3-3.5) ANION GAP 8.0 mmol/l (7.0-16.0) OSMOLALITY (CALCULATED) 278 L mos/kg (280-300) A/G RATIO 1.4 (1.0-2.0) Lipase: (NEIDA: 02/09/2020 22:55[facility] 23[facility]21[facility] Final results Test Result Flag [...] Microscopic performed. Elements observed are listed. PAGE: [address] NUM: [id number] : 2000 If no elements are listed,the [...] 15 tablet. Refills: 0. Substitution permitted.Pharmacy - [id number] - [address] [place], [place] [id number]. . OTC Medications:Take ibuprofen (such as Advil, Motrin or Nuprin) according to label instructions. Available over the counter. Understanding of the discharge instructions verbalized by patient. Follow-up with: Adriana Wilson M.D., OBNOLVIAN, , [facility], [address] [place] [address], [id number] up in two days if not better. Reason for referral: evaluation. PAGE: 9[facility] [place] [address] [facility] NUM: [id number] : 2000 (Electronically signed by REJI GALVEZ DO 02/10/2020 01:11) Addenda for [facility] VisitID: [id number] Date: 02/09/2020 02/09/2020 23:39I, katie Paz, documenting [...] rce(s) Supporting Document(s) ID Date Data Source [id number] 02/10/2020 08:47:02 AM EST [facility] CT of the Abdomen and PelvisHISTORY: [...] rce(s) Supporting Document(s) ID Date Data Source [id number] 02/09/2020 11:56:37 PM EST [facility] PELVIC SONOGRAMClinical History: Pelvic painTechnique: Transvaginal [...] evidence of massElectronically Signed By: DARLIN WARNER [facility] 02/09/2020 23:55 Name Value Range Interpretation Code Description Data Socorro rce(s) Supporting Document(s) ID Date Data Source [id number] 02/09/2020 11:25:00 PM EST [facility] Name Value Range Interpretation Code Description Data [facility] rce(s) Supporting Document(s) WBC 10.4 x10E3/uL 4.3-10.9 [facility] spital RBC 5.14 x10E6/uL 3.80-5.30 [facility] HEMOGLOB[facility] 11.6 g/dl 11.8-15.8 L [facility] HEMATOCRIT 37.8 % 35.0-47.0 [facility] MCV 73.5 fl 82.0-98.0 L [facility] MCH 22.6 pg 27.5-33.5 L [facility] MCHC 30.7 g/dl 32.0-36.0 L [facility] RDW 16.3 % 11.5-14.5 H [facility] al PLATELET COUNT 323 x10E3/uL 130-400 [facility] (Slide estimate appears adequate) MPV 9.1 fl 8.6-12.6 [facility] SEGMENTED NEUTROPHILS 67.0 % 44.0-74.0 [facility] BAND 0.0 % 0.0-4.0 [facility] LYMPHOCYTES 27.0 % 15.0-45.0 [facility] MONOCYTES 5.0 % 2.0-13.0 [facility] EOSINOPHILS 1.0 % 0.0-6.0 [facility] BASOPHILS 0.0 % 0.0-2.0 [facility] NEUTROPHIL ABSOLUTE 7.0 x10E3/uL 1.4-7.0 [facility] LYMPHOCYTES ABSOLUTE 2.8 x10E3/uL 1.0-3.4 [facility] MONOCYTE ABSOLUTE 0.5 x10E3/uL 0.2-1.0 [facility] EOSINOPHIL ABSOLUTE 0.1 x10E3/uL 0.0-0.5 [facility] BASOPHIL ABSOLUTE 0.0 x10E3/uL 0.0-0.2 [facility] HYPOCHROMIA 1+ A [facility] ANISOCYTOSIS 1+ A [facility] pital MICROCYTOSIS 1+ A [facility] pital POIKILOCYTOSIS 1+ A [facility] ospital OVALOCYTOSIS 1+ A [facility] pital R [facility], Dept of [address] [address] * ID Date Data Source [id number] 02/09/2020 11:24:00 PM EST [facility] Name Value Range Interpretation Code Description Data Socorro rce(s) Supporting Document(s) RBC MORPHOLOGY SCAN PERFORMED [facility], Dept of [address] [address] * ID Date Data Source [id number] 02/09/2020 11:21:00 PM EST [facility] Name Value Range Interpretation Code Description Data Socorro rce(s) Supporting Document(s) GLUCOSE 117 mg/dl 70-100 H [facility] BUN 11 mg/dl 4-18 [facility] CREATININE, SERUM 0.57 mg/dl 0.60-1.20 L [facility] SODIUM 139 mmol/l 136-146 [facility] POTASSIUM 4.1 mmol/l 3.5-5.3 [facility] CHLORIDE 106 mmol/l 96-109 [facility] CARBON DIOXIDE 25 mmol/l 20-32 [facility] ospital ALBUMIN 4.0 g/dl 3.5-5.0 [facility] PROTEIN, TOTAL 6.9 g/dl 6.3-8.6 [facility] ospital CALCIUM 9.3 mg/dl 8.9-10.7 [facility] ALKALINE PHOSPHATASE 89 U/l 50-130 [facility] SGOT (AST) 13 U/l 5-30 [facility] SGPT (ALT) 12 U/l 5-35 [facility] BILIRUBIN, TOTAL 0.15 mg/dl 0.30-1.20 L [facility] BUN/CREATININE RATIO 19.3 6.0-20.0 [facility] GLOBULIN 2.9 g/dl 2.3-3.5 [facility] al ANION GAP 8.0 mmol/l 7.0-16.0 [facility] ciarra OSMOLALITY (CALCULATED) 278 mos/kg 280-300 L [facility] A/G RATIO 1.4 1.0-2.0 [facility] al R [facility], Dept of [address] [address] * ID Date Data Source [id number] 02/09/2020 11:21:00 PM [facility] Name Value Range Interpretation Code Description Data Socorro rce(s) Supporting Document(s) ESTIMATED GFR (CALCULATED) [facility] EGFR 134 [facility] >59 mL/min/1.73m2 EGFR, -AZERBAIJANI 156 [facility] >59 mL/min/1.13g3Oyfv: Persistent reduction for 3 months or more in an eGFR <60 mL/min/1.73m2 defines CKD. Patients with eGFR values >=60 mL/min/1.73m2 may also have CKD if evidence of persistent proteinuria is present. Additional information may be found at [email or web address]. R [facility], Dept of [address] [address] * ID Date Data Source [id number] 02/09/2020 11:21:00 PM [facility] Name Value Range Interpretation Code Description Data Socorro rce(s) Supporting Document(s) LIPASE 21 U/L 1-64 [facility] al R [facility], Dept of [address] [address] * ID Date Data Source [id number] 02/09/2020 11:57:00 PM [facility] Name Value Range Interpretation Code Description Data Socorro rce(s) Supporting Document(s) , URINE NEGATIVE NEGATIVE [facility] [address] [address] * ID Date Data Source [id number] 02/09/2020 10:50:00 PM [facility] Name Value Range Interpretation Code Description Data Socorro rce(s) Supporting Document(s) URINE COLOR YELLOW YELLOW [facility] URINE APPEARANCE CLOUDY CLEAR A [facility] URINE SPECIFIC GRAVITY 1.010 1.003-1.035 [facility] URINE LEUKOCYTES NEGATIVE NEGATIVE [facility] URINE NITRITE NEGATIVE NEGATIVE [facility] spital URINE PH 7.5 5.0-8.0 [facility] URINE PROTEIN NEGATIVE mg/dl NEGATIVE [facility] URINE GLUCOSE NEGATIVE mg/dl NEGATIVE [facility] URINE KETONES NEGATIVE mg/dl NEGATIVE [facility] URINE UROBILINOGEN 0.2 mg/dl NORMAL OR <1 [facility] URINE BILIRUBIN NEGATIVE NEGATIVE [facility] URINE OCCULT BLOOD NEGATIVE NEGATIVE [facility] URINE MICROSCOPIC PERFORMED [facility] Microscopic performed . Elements observed are listed. If no elements are listed,the Microscopic is negative. AMORPHOUS PRECIPITATES 3+ hpf NEGATIVE A [facility] EPITHELIAL CELLS 0-1 hpf 0-5 [facility] MUCOUS THREADS 1+ hpf NEGATIVE A [facility] ospital URINE C+S IF INDICATED NOT INDICATED [facility], [place] [address] * ID Date Data Source [id number] 02/10/2020 07:24:29 AM EST [facility] ADDENDUM Vent Rate: 89 bpmRR Interval: 674 msecPR Interval: 122 msecQRS Duration: 86 msecQT Interval: 371 msecQTC Interval: 452 msecP-R-T [place]: 15 - 28 - 43 degreesSinus rhythm...normal P axis, V-rate 50- 99Normal axis.Normal intervals.No sig. ST changes.Poor quality electrocardiogramStudy Date: [id number] Signed By: LORNA WARNER, RUSSELLDate: 02/10/2020 07:24ORIGINALVent Rate: 89 bpmRR Interval: 674 msecPR Interval: 122 msecQRS Duration: 86 msecQT Interval: 371 msecQTC Interval: 452 msecP-R-T [place]: 15 - 28 - 43 degreesSinus rhythm...normal P axis, V-rate 50- 99Low voltage, precordial leads...precordial leads <1.0mVNormal axis. Normal intervals. No sig. ST changes.Study Date: [id number] Signed By: REJI GALVEZ DODate: 02/09/2020 23:47 Name Value Range Interpretation Code Description Data Socorro rce(s) Supporting Document(s) ID Date Data Source [id number] 11/10/2019 01:45:00 PM EDT [facility] ([facility]) Name Value Range Interpretation Code Description Data Socorro rce(s) Supporting Document(s) Chlamydia/GC, Lauryn Laboratory test result [facility] ([facility]) Source- Endocerv/Vag Swab Laboratory test result [facility] ([facility]) Neisseria Gonorrhoeae,Lauryn Laboratory test result [facility] ([facility]) RN-[facility] [place] [address] [place] [phone] Chlamydia Trachomatis,Lauryn Laboratory test result [facility] ([facility]) RN-[facility] [address] [place] [phone] ID Date Data Source [id number] 11/11/2019 09:06:00 PM EDT [facility] Name Value Range Interpretation Code Description Data Socorro rce(s) Supporting Document(s) CHLAMYDIA/GC, LAURYN SEE BELOW [facility] SOURCE- ENDOCERV/VAG SWAB * [facility] CHLAMYDIA TRACHOMATIS,LAURYN Negative Negative [facility] RN-[facility] [address] [place] [phone] NEISSERIA GONORRHOEAE,LAURYN Negative Negative [facility] RN-[facility] [address] [place] [phone] ID Date Data Source [id number] 09/27/2019 07:12:00 AM EDT [facility] PATIENT: ANAHI HAMPTON LOC: [id number],[id number],2BILL# : [id number] : 2000 SEX: FORDERED BY: KRANTHI WRIGHT ORDERED : 09/27/2019 06:35 COLLECTED: 09/27/2019 05:20ORDER : [id number] RECEIVED : 09/27/2019 05:39 TEST NAME RESULTFETO/IRAJ SCRN NEG 09/27/19 07:12 EJB Name Value Range Interpretation Code Description Data Socorro rce(s) Supporting Document(s) ID Date Data Source [id number] 09/27/2019 07:11:00 AM EDT [facility] PATIENT: ANAHI HAMPTON LOC: [id number],[id number],2BILL# : [id number] : 2000 SEX: FORDERED BY: KRANTHI WRIGHT ORDERED : 09/26/2019 23:30 COLLECTED: 09/27/2019 05:20ORDER : [id number] RECEIVED : 09/27/2019 05:39 TEST NAME RESULTABO TYPE O 09/27/19 07:11 EJBRH TYPE NEG 09/27/19 07:11 EJBANTIBODY SCREEN NEG 09/27/19 07:11 EJB Name Value Range Interpretation Code Description Data Socorro rce(s) Supporting Document(s) ID Date Data Source [id number] 09/27/2019 05:46:00 AM EDT [facility] Name Value Range Interpretation Code Description Data Socorro rce(s) Supporting Document(s) WBC 12.0 x10E3/uL 4.3-10.9 H [facility] spital RBC 3.58 x10E6/uL 3.80-5.30 L [facility] spital HEMOGLOBIN 8.9 g/dl 11.8-15.8 L [facility] ciarra HEMATOCRIT 28.9 % 35.0-47.0 L [facility] ciarra MCV 80.7 fl 82.0-98.0 L [facility] al MCH 24.9 pg 27.5-33.5 L [facility] MCHC 30.8 g/dl 32.0-36.0 L [facility] al RDW 14.9 % 11.5-14.5 H [facility] al PLATELET COUNT 271 x10E3/uL 130-400 [facility] MPV 9.8 fl 8.6-12.6 [facility] al SEGMENTED NEUTROPHILS 74.3 % 44.0-74.0 H [facility] LYMPHOCYTES 18.9 % 15.0-45.0 [facility] MONOCYTES 5.8 % 2.0-13.0 [facility] al EOSINOPHILS 0.8 % 0.0-6.0 [facility] BASOPHILS 0.2 % 0.0-2.0 [facility] al NEUTROPHIL ABSOLUTE 8.9 x10E3/uL 1.4-7.0 H [facility] LYMPHOCYTES ABSOLUTE 2.3 x10E3/uL 1.0-3.4 [facility] MONOCYTE ABSOLUTE 0.7 x10E3/uL 0.2-1.0 [facility] EOSINOPHIL ABSOLUTE 0.1 x10E3/uL 0.0-0.5 [facility] BASOPHIL ABSOLUTE 0.0 x10E3/uL 0.0-0.2 [facility] R [facility], [place] [address] * ID Date Data Source [id number] 09/27/2019 07:15:00 AM EDT [facility] PATIENT: ANAHI HAMPTON LOC: [id number],2BILL# : [id number] : 2000 SEX: FORDERED BY: KRANTHI WRIGHT ORDERED : 09/26/2019 23:30 COLLECTED: 09/27/2019 05:00ORDER : [id number] RECEIVED : TEST NAME RESULTRh IG-full dose [id number] issued 1 vial 09/27/19 07:15 -- Name Value Range Interpretation Code Description Data Socorro rce(s) Supporting Document(s) ID Date Data Source [id number] 09/26/2019 08:43:00 AM EDT [facility] Name Value Range Interpretation Code Description Data Socorro rce(s) Supporting Document(s) SARS coronavirus 2 RNA [place] This lab was ordered by [facility] a nd reported by [facility]. ID Date Data Source [id number] 09/26/2019 09:48:00 AM EDT [facility] C [facility] [address] [place] [address] r [facility], DEPT OF PATH [address] [place] [address] Site: RNAS Collected: 09/26/19 08:23TYOZ-FAI-1 FINAL 09/26/19 09:48 R009/26/19 NEGATIVE Expected Value: NEGATIVE by [facility] [facility] Name Value Range Interpretation Code Description Data Socorro rce(s) Supporting Document(s) ID Date Data Source [id number] 09/26/2019 09:08:00 AM EDT [facility] PATIENT: ANAHI HAMPTON LOC: Blanca Diaz,1BILL# : [id number] : 2000 SEX: FORDERED BY: KRANTHI WRIGHT ORDERED : 09/26/2019 06:44 COLLECTED: 09/26/2019 06:45ORDER : [id number] RECEIVED : 09/26/2019 06:50 TEST NAME RESULTABO TYPE O 09/26/19 09:02 JSS1RH TYPE NEG 09/26/19 09:02 [id number] SCREEN NEG 09/26/19 09:08 JSS1 - Name Value Range Interpretation Code Description Data Socorro rce(s) Supporting Document(s) ID Date Data Source [id number] 09/26/2019 07:37:00 AM EDT [facility] Name Value Range Interpretation Code Description Data Socorro rce(s) Supporting Document(s) RPR NON-REACTIVE NON-REACTIVE [facility] R [facility], [place] [address] * ID Date Data Source [id number] 09/26/2019 07:28:00 AM EDT [facility] Name Value Range Interpretation Code Description Data Socorro rce(s) Supporting Document(s) ESTIMATED GFR (CALCULATED) [facility] EGFR 152 [facility] al >59 mL/min/1.73m2 EGFR, -AZERBAIJANI 176 [facility] >59 mL/min/1.93n6Qpgm: Persistent reduction for 3 months or more in an eGFR <60 mL/min/1.73m2 defines CKD. Patients with eGFR values >=60 mL/min/1.73m2 may also have CKD if evidence of persistent proteinuria is present. Additional information may be found at [email or web address]. R [facility], Dept of Path [address] [place] [address] * ID Date Data Source [id number] 09/26/2019 07:28:00 AM EDT [facility] Name Value Range Interpretation Code Description Data [facility] rce(s) Supporting Document(s) URIC ACID 4.0 mg/dl 3.0-5.9 [facility] Therapeutic target for gout patients: <6.0 mg/dl R [facility], Dept of Path [address] [place] [address] * ID Date Data Source [id number] 09/26/2019 07:28:00 AM EDT [facility] Name Value Range Interpretation Code Description Data Socorro rce(s) Supporting Document(s) GLUCOSE 86 mg/dl 70-100 [facility] BUN 9 mg/dl 4-18 [facility] CREATININE, SERUM 0.40 mg/dl 0.60-1.20 L [facility] SODIUM 135 mmol/l 136-146 L [facility] POTASSIUM 4.1 mmol/l 3.5-5.3 [facility] CHLORIDE 102 mmol/l 96-109 [facility] CARBON DIOXIDE 22 mmol/l 20-32 [facility] ospital ALBUMIN 3.6 g/dl 3.1-4.8 [facility] PROTEIN, TOTAL 6.7 g/dl 6.3-8.6 [facility] ospital CALCIUM 9.5 mg/dl 8.9-10.7 [facility] ALKALINE PHOSPHATASE 160 U/l 50-130 H [facility] SGOT (AST) 12 U/l 5-30 [facility] SGPT (ALT) 8 U/l 5-35 [facility] BILIRUBIN, TOTAL 0.20 mg/dl 0.30-1.20 L [facility] BUN/CREATININE RATIO 22.5 6.0-20.0 H [facility] GLOBULIN 3.1 g/dl 2.3-3.5 [facility] ANION GAP 11.0 mmol/l 7.0-16.0 [facility] OSMOLALITY (CALCULATED) 268 mos/kg 280-300 L [facility] A/G RATIO 1.2 1.0-2.0 [facility] al R [facility], Dept of [address] [place] [address] * ID Date Data Source [id number] 09/26/2019 07:10:00 AM EDT [facility] Name Value Range Interpretation Code Description Data Socorro rce(s) Supporting Document(s) FIBRINOGEN 614 mg/dl 226-442 H [facility] ciarra R [facility], Dept of Pat [address] [place] [address] * ID Date Data Source [id number] 09/26/2019 07:10:00 AM EDT [facility] Name Value Range Interpretation Code Description Data Socorro rce(s) Supporting Document(s) PT (NO THERAPY/UNKNOWN) 12.7 seconds 11.7-14.5 [facility] INR 1.0 [facility] IN TERNATIONAL NORMALIZED RATIO(INR) INDICATIONS INR RANGE [...] AN UNACCEPTABLY HIGH RISK OF BLEEDING. R [facility], Dept of Path [address] [place] [address] * ID Date Data Source [id number] 09/26/2019 07:10:00 AM EDT [facility] Name Value Range Interpretation Code Description Data Socorro rce(s) Supporting Document(s) PTT 28.4 seconds 23.7-35.5 [facility] pital R [facility], [facility] [address] [address] * ID Date Data Source [id number] 09/26/2019 07:06:00 AM EDT [facility] Name Value Range Interpretation Code Description Data Socorro rce(s) Supporting Document(s) CREAT, RANDOM URINE 96.77 mg/dl [facility] Reference ranges are not available for random urines. PROTEIN, RANDOM URINE 19.3 mg/dl [facility] Reference ranges are not available for random urines. PROTEIN/CREAT RATIO 0.20 ratio [facility] R [facility], [facility] [place] [id number] * ID Date Data Source [id number] 09/26/2019 06:55:00 AM EDT [facility] Name Value Range Interpretation Code Description Data Socorro rce(s) Supporting Document(s) WBC 13.3 x10E3/uL 4.3-10.9 H [facility] spital RBC 4.59 x10E6/uL 3.80-5.30 [facility] HEMOGLOBIN 11.4 g/dl 11.8-15.8 L [facility] HEMATOCRIT 36.4 % 35.0-47.0 [facility] MCV 79.3 fl 82.0-98.0 L [facility] al MCH 24.8 pg 27.5-33.5 L [facility] al MCHC 31.3 g/dl 32.0-36.0 L [facility] al RDW 14.9 % 11.5-14.5 H [facility] al PLATELET COUNT 319 x10E3/uL 130-400 [facility] MPV 9.6 fl 8.6-12.6 [facility] R [facility], [facility] [place] [id number] * ID Date Data Source [id number] 09/11/2019 04:07:00 PM EDT [facility] ([facility]) Name Value Range Interpretation Code Description Data Socorro rce(s) Supporting Document(s) HIV 1+2 Ab+HIV1 p24 Ag [Presence] in Serum or Plasma b y Immunoassay Laboratory test result [facility] ([facility]) Charted. ID Date Data Source [id number] 09/11/2019 04:07:00 PM EDT [facility] ([facility]) Name Value Range Interpretation Code Description Data Socorro rce(s) Supporting Document(s) Leukocytes [#/volume] in Blood by Automated count 9.9 x10E3/uL 4.3-10 .9 [facility] ([facility]) Charted. Erythrocytes [#/volume] in Blood by Automated count 4.44 x10E6/uL 3.8 0-5.30 [facility] ([facility]) Charted. Hemoglobin [Mass/volume] in Blood 11.2 g/dL 11.8-15.8 Below low nor mal [facility] ([facility]) Charted. Hematocrit [Volume Fraction] of Blood by Automated count 36.0 % 3 5.0-47.0 [facility] ([facility]) Charted. Erythrocyte mean corpuscular volume [Entitic volume] by Auto mated count 81.1 fl 82.0-98.0 Below low normal [facility] ([facility]) Charted. Erythrocyte mean corpuscular hemoglobin [Entitic mass] by Automated count 25.2 pg 27.5-33.5 Below low normal [facility] ([facility]) Charted. Erythrocyte distribution width [Ratio] by Automated count 14.5 % 11.5-14.5 [facility] ([facility]) Charted. Erythrocyte mean corpuscular hemoglobin concentration [Mass/volume] by Automated count 31.1 g/dL 32.0-36.0 Below low normal [facility] ([facility]) Charted. Platelets [#/volume] in Blood by Automated count 298 x10E3/uL 130-400 [facility] ([facility]) Charted. Platelet mean volume [Entitic volume] in Blood by Jakob 10.4 f l 8.6-12.6 [facility] ([facility]) Charted. ID Date Data Source [id number] 09/12/2019 08:07:00 AM EDT [facility] Name Value Range Interpretation Code Description Data Socorro rce(s) Supporting Document(s) ANTIVIRAL AB 4TH GEN WRFX SEE BELOW [facility] HIV Screen 4th Generation wRfx Non Reactive Non Reactive [facility] [address] [id number] ID Date Data Source [id number] 09/11/2019 06:26:00 PM EDT [facility] Name Value Range Interpretation Code Description Data Socorro rce(s) Supporting Document(s) WBC 9.9 x10E3/uL 4.3-10.9 [facility] p[facility] RBC 4.44 x10E6/uL 3.80-5.30 [facility] spital HEMOGLOBIN 11.2 g/dl 11.8-15.8 [facility] HEM[facility] 36.0 % 35.0-47.0 [facility] MCV 81.1 fl 82.0-98.0 L [facility] al MCH 25.2 pg 27.5-33.5 L [facility] al MCHC 31.1 g/dl 32.0-36.0 L [facility] al RDW 14.5 % 11.5-14.5 [facility] PL[facility]LET COUNT 298 x10E3/uL 130-400 [facility] MPV 10.4 fl 8.6-12.6 [facility] al R [facility], [place] [address] * ID Date Data Source [id number] 09/11/2019 02:15:00 PM EDT [facility] ([facility]) Name Value Range Interpretation Code Description Data Socorro rce(s) Supporting Document(s) Laboratory test finding (navigational concept) Laboratory test result [facility] ([facility]) Laboratory test finding (navigational concept) Laboratory test result [facility] ([facility]) PATIENT: ANAHI HAMPTON LOC: TUCKER BILL# : [id number] : 2000 SEX: F ORDERED BY: SAMUEL BARILLAS ORDERED : 09/11/2019 18:06 COLLECTED: 09/11/2019 14:15 ORDER : [id number] RECEIVED : 09/11/2019 18:06 TEST NAME RESULT UNITS RANGES ABN FL ST SITE SOURCE: VAGINAL F STREP GP B LAURYN+RFLX Negative Negative F RN // Centers for Disease Control and Prevention (CDC) and [place] [employer] // of Obstetricians and Gynecologists (ACOG) [...] if resistance to clindamycin is noted. // ANGY-Sandra Nobles [address] [place] [address] WADE [id number] // ID Date Data Source [id number] 09/11/2019 02:15:00 PM EDT [facility] ([facility]) Name Value Range Interpretation Code Description Data Socorro rce(s) Supporting Document(s) Source- Endocerv/Vag Swab Laboratory test result [facility] ([facility]) Chlamydia/GC, Lauryn Laboratory test result [facility] ([facility]) Chlamydia Trachomatis,Lauryn Laboratory test result [facility] ([facility]) Vinayak Nobles [address] [place] [address] [place] [phone] Neisseria Gonorrhoeae,Lauryn Laboratory test result [facility] ([facility]) Vinayak [address] [place] [id number] ID Date Data Source [id number] 09/13/2019 12:06:00 PM EDT [facility] Name Value Range Interpretation Code Description Data Socorro rce(s) Supporting Document(s) SOURCE: VAGINAL [facility] Hospit al STREP GP B LAURYN+RFLX Negative Negative [facility] PATIENT: ANAHI HAMPTON LOC: TUCKER BILL# : [id number] : 2000 SEX: FORDERED BY: SAMUEL BARILLAS ORDERED : 09/11/2019 18:06 COLLECTED: 09/11/2019 14:15ORDER : [id number] RECEIVED : 09/11/2019 18:06 TEST NAME RESULT UNITS RANGES ABN FL ST SITESOURCE: VAGINAL FSTREP GP B LAURYN+RFLX Negative Negative F RN// Centers for Disease Control and Prevention (CDC) and [place] [employer]// of Obstetricians and Gynecologists (ACOG) guidelines [...] resistance to clindamycin is noted.// Vinayak Nobles [address] [facility] [id number]// ID Date Data Source [id number] 09/13/2019 02:06:00 AM EDT [facility] Name Value Range Interpretation Code Description Data Socorro rce(s) Supporting Document(s) CHLAMYDIA/GC, LAURYN SEE BELOW [facility] SOURCE- ENDOCERV/VAG SWAB * [facility] CHLAMYDIA TRACHOMATIS,LAURYN Negative Negative [facility] RN-[facility] [place] [address] [facility] [place] [id number] NEISSERIA GONORRHOEAE,LAURYN Negative Negative [facility] RN-[facility] [place] [address] [facility] [place] [id number] ID Date Data Source [id number] 09/11/2019 02:36:43 PM EDT [facility] CLINICAL HISTORY: Poor growth affe cting [...] Name Value Range Interpretation Code Description Data [facility] rce(s) Supporting Document(s) ID Date Data Source [id number] 08/08/2019 08:00:23 AM EDT [facility] OBSTETRICAL SONOGRAMClinical His tory: Nonreactive stress testTechnique: [...] Name Value Range Interpretation Code Description Data [facility] rce(s) Supporting Document(s) ID Date Data Source [id number] 07/28/2019 10:50:00 PM EDT [facility] ([facility]) Name Value Range Interpretation Code Description Data [facility] rce(s) Supporting Document(s) Amphetamines Laboratory test result [facility]) Screen Cutoff 1000 ng/ml. . Screen Interpretation Laboratory test result [facility]) Methodology for the test(s) below is for screening purposes only and the reference range for these tests is Negative. Positive results should be considered presumptive. . . Barbiturates Laboratory test result [facility] ([facility]) Screen Cutoff 200 ng/ml. . Benzodiazepines [Presence] in Urine Laboratory test result [facility] ([facility]) Screen Cutoff 300 ng/ml. . Benzoylecgonine [Presence] in Urine Laboratory test result [facility] ([facility]) Screen Cutoff 300 ng/ml. . Cannabis (THC) Laboratory test result [facility]) Screen Cutoff 50 ng/ml. . Opiates [Presence] in Urine Laboratory test result [facility]) Screen Cutoff 300 ng/ml. . Phencyclidine (PCP) Laboratory test result [facility]) Screen Cutoff 25 ng/ml. . Tricyclic antidepressants [Presence] in Serum or Plasma Labo ratory test result [facility] ([facility]) Screen Cutoff 500 ng/ml. . R [facility], Dept of Path [address] [place] [address] * [phone] ID Date Data Source [id number] 07/28/2019 10:50:00 PM EDT [facility] ([facility]) Name Value Range Interpretation Code Description Data Socorro rce(s) Supporting Document(s) Color of Urine Laboratory test result [facility] ([facility]) Appearance of Urine Laboratory test [facility]) Leukocytes [#/volume] in Urine by Manual count Laboratory test result [facility] ([facility]) Urine Nitrite Laboratory test result [facility] ([facility]) Specific gravity of Urine by Refractometry 1.010 1.003-1.035 [facility] ([facility]) Urine Protein Laboratory test result [facility]) pH of Urine 7.0 5.0-8.0 [facility] ([facility]) Ketones [Presence] in Urine by Test strip Laboratory test result [facility] ([facility]) Glucose [Presence] in Urine Laboratory test result [facility] ([facility]) Bilirubin.total [Mass/volume] in Urine Laboratory test result [facility] ([facility]) Urobilinogen [Mass/volume] in Urine by Test strip 0.2 mg/dL [facility] ([facility]) Hemoglobin [Presence] in Urine by Test strip Laboratory test result [facility] ([facility]) Urine Microscopic Laboratory test result [facility] ([facility]) Microscopic performed. Elements observed are listed. If no elements are listed,the Microscopic is negative. Bacteria [Presence] in Semen by Light microscopy Laboratory test result Abnormal (applies to non-numeric results) [facility] ([facility]) Leukocytes [#/volume] in Blood by Automated count Laboratory test r esult 0-5 [facility] ([facility]) Epithelial cells [#/area] in Urine sediment by Micros opy high power field Laboratory test result 0-5 [facility] ([facility]) Bacteria identified in Urine by Culture Laboratory test result [facility] ([facility]) R [facility], Dept of Path [address] [place] [address] * Mucus [Presence] in Urine sediment by Light microscopy Laborator y test result Abnormal (applies to non-numeric results) [facility] ([facility]) ID Date Data Source [id number] 07/28/2019 11:23:00 PM EDT [facility] Name Value Range Interpretation Code Description Data Socorro rce(s) Supporting Document(s) SCREEN INTERPRETATION SEE NOTE [facility] Methodology for the test(s) be low is for screening purposes only and the reference range for these tests is Negative. Positive results should be considered presumptive. . . AMPHETAMINES NEGATIVE [facility] Screen Cutoff 1000 ng/ml. . BARBITURATES NEGATIVE [facility] Screen Cutoff 200 ng/ml. . BENZODIAZEPINES NEGATIVE [facility] Screen Cutoff 300 ng/ml. . COCAINE NEGATIVE [facility] Screen Cutoff 300 ng/ml. . OPIATES NEGATIVE [facility] Screen Cutoff 300 ng/ml. . PHENCYCLIDINE (PCP) NEGATIVE [facility] Screen Cutoff 25 ng/ml. . CANNABIS (THC) NEGATIVE [facility] ospital Screen Cutoff 50 ng/ml. . TRICYCLIC ANTIDEPRESSNT NEGATIVE NEGATIVE [facility] Screen Cutoff 500 ng/ml. . R [facility], Dept of Path [address] [place] [address] * ID Date Data Source [id number] 07/28/2019 11:20:00 PM EDT [facility] Name Value Range Interpretation Code Description Data Socorro rce(s) Supporting Document(s) URINE COLOR YELLOW YELLOW [facility] URINE APPEARANCE CLEAR CLEAR [facility] URINE SPECIFIC GRAVITY 1.010 1.003-1.035 [facility] URINE LEUKOCYTES NEGATIVE NEGATIVE [facility] URINE NITRITE NEGATIVE NEGATIVE [facility] URINE PH 7.0 5.0-8.0 [facility] URINE PROTEIN NEGATIVE mg/dl NEGATIVE [facility] URINE GLUCOSE NEGATIVE mg/dl NEGATIVE [facility] URINE KETONES NEGATIVE mg/dl NEGATIVE [facility] URINE UROBILINOGEN 0.2 mg/dl NORMAL OR <1 [facility] URINE BILIRUBIN NEGATIVE NEGATIVE [facility] URINE OCCULT BLOOD NEGATIVE NEGATIVE [facility] URINE MICROSCOPIC PERFORMED [facility] Microscopic performed . Elements observed are listed. If no elements are listed,the Microscopic is negative. WBC 2-5 hpf 0-5 [facility] BACTERIA 1+ h[facility] EPITHELIAL CELLS 2-5 hpf 0-5 [facility] MUCOUS THREADS 1+ hpf NEGATIVE A [facility] ospital URINE C+S IF INDICATED NOT INDICATED Rom e [facility] R [facility], Dept of [facility] h [address] [place] [address] * ID Date Data Source [id number] 07/17/2019 02:16:00 PM EDT [facility] PAGE: [address] [place] [address] MEMO [id number] [facility] [place] [id number] [facility] REC NUM: [id number] : 2000 Med Reconciliation Patient: MEMO CHRISTIAN Medication Reconciliation Report [facility]: [id number] [place] [address] [phone], FRegistration Date/Time: 07/17/2019 14:16 Weight: 112.4 kgHeight/Length: 66 in.BMI: 40.0 ALLERGIES:Nystatin The patient's Home Medications are listed below: Not obtained.The source(s) of the original Home Medication information: Not obtained.The following Medications were given to the patient in the Emergency Department:None.The following Medications were prescribed to the patient: None. Name Value Range Interpretation Code Description Data Socorro rce(s) Supporting Document(s) ID Date Data Source [id number] 07/17/2019 02:16:00 PM EDT [facility] PAGE: [address] [place] [address] MEOM CHRISTIAN[address] [facility] [place] [address] [facility] REC NUM: [id number] : 2000 Physician Discharge Report Clinical [facility] - [facility] [address] [place] [address] Patient: MEMO CHRISTIAN : F : 2000 [...] HISTORYSee nurses notes. SOCIAL HISTORYNever smoker. PAGE: [address] [place], [place] [address]RRTEXAS [facility] CH[facility]ENWYGEYJQRD[address] [place] [address] REC NUM: [id number] : 2000 FAMILY HISTORYNo significant family medical [...] GFR (CALCULATED) EGFR 150 >59 mL/min/1.73m2 EGFR, -AZERBAIJANI 173 >59 mL/min/1.10t1Avpz: Persistent reduction for 3 months or more in an eGFR <60 mL/min/1.73m2 defines CKD. Patients with eGFR values >=60 mL/min/1.73m2 may also have CKD if evidence of persistent proteinuria is present. Additional information may be found at [email or web address]. PAGE: [address] [place] [address] [facility] REC NUM: [id number] : 2000 Uric Acid: (NEIDA: 07/17/2019 14:55)( [facility] 15:35) Final results urine protein/creatine ratio Test Result Flag Units (Reference)URIC ACID 3.8 mg/dl (3.0-5.9) Therapeutic target for gout patients: <6.0 mg/dl CBC w Diff: (NEIDA: 07/17/2019 14:55)( MsgRcvd 07/17/2019 15:04) Final results urine protein/creatine ratio [...] 5.7 % (2.0-13.0) EOSINOPHILS 0.5 % PAGE: [address] [place] [address] [facility] REC NUM: [id number] : 2000 (0.0-6.0) BASOPHILS 0.2 % (0.0-2.0) [...] (5-35) BILIRUBIN, TOTAL 0.19 L mg/dl PAGE: [address] [place] [address] [place] [id number] [facility] REC NUM: [id number] : 2000 (0.30-1.20) BUN/CREATININE RATIO 9.5 (6.0-20.0) GLOBULIN 2.8 g/dl (2.3-3.5) ANION GAP 10.0 mmol/l (7.0-16.0) OSMOLALITY (CALCULATED) 269 L mos/kg (280-300) A/G RATIO 1.1 (1.0-2.0) Lipase: (NEIDA: 07/17/2019 14:55)( [facility] 07/17/[facility] 15:35) Final results urine protein/creatine ratio Test Result Flag Units (Reference)LIPASE 14 U/L (1-64) APTT: (NEIDA: 07/17/2019 14:55)( [facility] 07/17/2019 15:15) Final results urine protein/creatine ratio Test Result Flag Units (Reference)PTT 28.6 seconds (23.7-35.5) Protime Not on Therapy: (NEIDA: 07/17/2019 14:55)( [facility] 07/17/2019 15:15) Final results urine protein/creatine ratio Test Result Flag Units (Reference)PT (NO THERAPY/UNKNOWN) 13.1 seconds (11.7- 14.5) INR 1.0 INTERNATIONAL NORMALIZED RATIO(INR) INDICATIONS INR RANGE PATIENTS NOT ON ANTICOAGULANT THERAPY * DEEP VENOUS THROMBOSIS 2.0- 3.0 PULMONARY EMBOLISM 2.0-3.0 PAGE: [address] [place] [address] NUM: [id number] : 2000 ATRIAL FIBRILLATION 2.0-3.0 PROPHYLAXIS: 2.0-3.0 [...] discharge instructions verbalized by patient. Follow-up with: [facility], OBGYN, , [facility], [address] [place], [place], [address]Hnoycy up tomorrow. Call for an appointment. Reason for referral: evaluation and treatment. Summary of care provided to patient. (Electronically signed by KATELYNN DAVIS NP 07/17/2019 17:48) PAGE: [address] [place] [address] [facility] REC NUM: [id number] : 2000 Name Value Range Interpretation Code Description Data [facility] rce(s) Supporting Document(s) ID Date Data Source [id number] 07/17/2019 04:50:00 PM EDT [facility] urine protein/creatine ratio Name Value Range Interpretation Code Description Data [facility] rce(s) Supporting Document(s) URINE COLOR YELLOW YELLOW [facility] URINE APPEARANCE CLEAR CLEAR [facility] URINE SPECIFIC GRAVITY 1.010 1.003-1.035 [facility] URINE LEUKOCYTES MODERATE(2+) NEGATIVE A [facility] URINE NITRITE NEGATIVE NEGATIVE [facility] spital URINE PH 8.0 5.0-8.0 [facility] URINE PROTEIN NEGATIVE mg/dl NEGATIVE [facility] URINE GLUCOSE NEGATIVE mg/dl NEGATIVE [facility] URINE KETONES NEGATIVE mg/dl NEGATIVE [facility] URINE UROBILINOGEN 0.2 mg/dl NORMAL OR <1 [facility] URINE BILIRUBIN NEGATIVE NEGATIVE [facility] URINE OCCULT BLOOD NEGATIVE NEGATIVE [facility] URINE MICROSCOPIC PERFORMED [facility] Microscopic performed . Elements observed are listed. If no elements are listed,the Microscopic is negative. WBC 20-30 hpf 0-5 A [facility] BACTERIA 1+ hpf NEGATIVE A [facility] EPITHELIAL CELLS 10-20 hpf 0-5 A [facility] R [facility], Dept of [address] [address] * ID Date Data Source [id number] 07/17/2019 03:35:00 PM EDT [facility] urine protein/creatine ratio Name Value Range Interpretation Code Description Data Socorro rce(s) Supporting Document(s) ESTIMATED GFR (CALCULATED) [facility] EGFR 150 [facility] >59 mL/min/1.73m2 EGFR, -AZERBAIJANI 173 [facility] >59 mL/min/1.41j7Fqwm: Persistent reduction for 3 months or more in an eGFR <60 mL/min/1.73m2 defines CKD. Patients with eGFR values >=60 mL/min/1.73m2 may also have CKD if evidence of persistent proteinuria is present. Additional information may be found at [email or web address]. [facility] [address] [place] [address] * ID Date Data Source [id number] 07/17/2019 03:35:00 PM EDT [facility] urine protein/creatine ratio Name Value Range Interpretation Code Description Data Socorro rce(s) Supporting Document(s) URIC ACID 3.8 mg/dl 3.0-5.9 [facility] Therapeutic target for gout patients: <6.0 mg/dl [facility] [address] [address] * ID Date Data Source [id number] 07/17/2019 03:35:00 PM EDT [facility] urine protein/creatine ratio Name Value Range Interpretation Code Description Data Socorro rce(s) Supporting Document(s) LIPASE 14 U/L 1-64 [facility] [address] [address] * ID Date Data Source [id number] 07/17/2019 03:35:00 PM EDT [facility] urine protein/creatine ratio Name Value Range Interpretation Code Description Data Socorro rce(s) Supporting Document(s) GLUCOSE 93 mg/dl 70-100 [facility] BUN 4 mg/dl 4-18 [facility] CREATININE, SERUM 0.42 mg/dl 0.60-1.20 L [facility] SODIUM 136 mmol/l 136-146 [facility] ciarra POTASSIUM 3.8 mmol/l 3.5-5.3 [facility] ciarra CHLORIDE 104 mmol/l 96-109 [facility] CARBON DIOXIDE 22 mmol/l 20-32 [facility]spital ALBUMIN 3.2 g/dl 3.1-4.8 [facility] PROTEIN, TOTAL 6.0 g/dl 6.3-8.6 L [facility]ital CALCIUM 8.6 mg/dl 8.9-10.7 L [facility] ALKALINE PHOSPHATASE 102 U/l 50-130 [facility] SGOT (AST) 11 U/l 5-30 [facility] SGPT (ALT) 6 U/l 5-35 [facility] BILIRUBIN, TOTAL 0.19 mg/dl 0.30-1.20 L [facility] BUN/CREATININE RATIO 9.5 6.0-20.0 [facility] GLOBULIN 2.8 g/dl 2.3-3.5 [facility] ANION GAP 10.0 mmol/l 7.0-16.0 [facility] OSMOLALITY (CALCULATED) 269 mos/kg 280-300 L [facility] A/G RATIO 1.1 1.0-2.0 [facility] R [facility], [place] [address] * ID Date Data Source [id number] 07/17/2019 03:15:00 PM EDT [facility] urine protein/creatine ratio Name Value Range Interpretation Code Description Data Socorro rce(s) Supporting Document(s) PTT 28.6 seconds 23.7-35.5 [facility] pital R [facility], Dept of [facility] [address] [place] [address] * ID Date Data Source [id number] 07/17/2019 03:15:00 PM EDT [facility] urine protein/creatine ratio Name Value Range Interpretation Code Description Data Socorro rce(s) Supporting Document(s) PT (NO THERAPY/UNKNOWN) 13.1 seconds 11.7-14.5 [facility] INR 1.0 [facility] IN TERNATIONAL NORMALIZED RATIO(INR) INDICATIONS INR RANGE [...] AN UNACCEPTABLY HIGH RISK OF BLEEDING. R [facility], [place] [address] * ID Date Data Source [id number] 07/17/2019 03:04:00 PM EDT [facility] urine protein/creatine ratio Name Value Range Interpretation Code Description Data Socorro rce(s) Supporting Document(s) WBC 9.3 x10E3/uL 4.3-10.9 [facility] pital RBC 4.11 x10E6/uL 3.80-5.30 [facility] spital HEMOGLOBIN 11.1 g/dl 11.8-15.8 L [facility] HEMATOCRIT 34.4 % 35.0-47.0 L [facility] MCV 83.7 fl 82.0-98.0 [facility] MCH 27.0 pg 27.5-33.5 L [facility] MCHC 32.3 g/dl 32.0-36.0 [facility] RDW 14.0 % 11.5-14.5 [facility] PLATELET COUNT 271 x10E3/uL 130-400 [facility] MPV 9.1 fl 8.6-12.6 [facility] SEGMENTED NEUTROPHILS 78.0 % 44.0-74.0 H [facility] LYMPHOCYTES 15.6 % 15.0-45.0 [facility] MONOCYTES 5.7 % 2.0-13.0 [facility] EOSINOPHILS 0.5 % 0.0-6.0 [facility] BASOPHILS 0.2 % 0.0-2.0 [facility] NEUTROPHIL ABSOLUTE 7.3 x10E3/uL 1.4-7.0 H [facility] LYMPHOCYTES ABSOLUTE 1.5 x10E3/uL 1.0-3.4 [facility] MONOCYTE ABSOLUTE 0.5 x10E3/uL 0.2-1.0 [facility] EOSINOPHIL ABSOLUTE 0.0 x10E3/uL 0.0-0.5 [facility] BASOPHIL ABSOLUTE 0.0 x10E3/uL 0.0-0.2 [facility], Dept of [facility] [address] [place] [address] * ID Date Data Source [id number] 07/17/2019 02:00:00 PM EDT [facility] ([facility]) Name Value Range Interpretation Code Description Data Socorro rce(s) Supporting Document(s) Creatinine [Mass/volume] in Urine 135.52 mg/dL [facility] ([facility]) Reference ranges are not available for random urines. Protein [Mass/volume] in Urine 20.3 mg/dL [facility] ([facility]) Reference ranges are not available for random urines. Protein/Creat Ratio 0.15 ratio [facility] ([facility]) [facility] [address] [place] [address] * ID Date Data Source [id number] 07/17/2019 05:59:00 PM EDT [facility] Name Value Range Interpretation Code Description Data Socorro rce(s) Supporting Document(s) CREAT, RANDOM URINE 135.52 mg/dl [facility] Reference ranges are not available for random urines. PROTEIN, RANDOM URINE 20.3 mg/dl [facility] Reference ranges are not available for random urines. PROTEIN/CREAT RATIO 0.15 ratio [facility] [address] [place] [address] * ID Date Data Source [id number] 07/10/2019 03:58:00 PM EDT [facility] ([facility]) Name Value Range Interpretation Code Description Data Socorro rce(s) Supporting Document(s) Rh immune globulin screen [interpretation] Laboratory test result [facility] ([facility]) PATIENT: ANAHI HAMPTON LOC: TUCKER BILL# : [id number] : 2000 SEX: F ORDERED BY: ELVIA SNOW ORDERED : 07/16/2019 13:11 COLLECTED: 07/10/2019 15:58 ORDER : [id number] RECEIVED : 07/10/2019 16:17 TEST NAME RESULT Rh IG-full dose [id number] issued 1 vial 07/16/19 13:13 Hemoglobin electrophoresis panel in Blood Laboratory test result [facility] ([facility]) Hgb Solubility Negative Negative RN Hgb F 0.0 % 0.0-2.0 RN Hgb A 97.7 % 96.4-98.8 RN Hgb S 0.0 % 0.0 RN Hgb C 0.0 % 0.0 RN Hgb A2 2.3 % 1.8-3.2 RN Hgb Variant 0.0 % 0.0 RN Interpretation RN Normal adult hemoglobin present. RN-[facility] [address] [id number] ID Date Data Source [id number] 07/10/2019 03:58:00 PM EDT [facility] ([facility]) Name Value Range Interpretation Code Description Data Socorro rce(s) Supporting Document(s) Rh immune globulin screen [interpretation] Laboratory test result [facility] ([facility]) PATIENT: ANAHI HAMPTON LOC: TUCKER BILL# : [id number] : 2000 SEX: F ORDERED BY: ELVIA SNOW ORDERED : 07/10/2019 14:57 COLLECTED: 07/10/2019 15:58 ORDER : [id number] RECEIVED : 07/10/2019 16:17 TEST NAME RESULT ABO TYPE O 07/10/19 16:59 BHP RH TYPE NEG 07/10/19 16:59 [facility] ANTIBODY SCREEN NEG 07/10/19 17:15 BHP ID Date Data Source [id number] 07/10/2019 03:58:00 PM EDT [facility] ([facility]) Name Value Range Interpretation Code Description Data Socorro rce(s) Supporting Document(s) Hemoglobin [Mass/volume] in Blood 11.5 g/dL 11.8-15.8 Below low nor mal [facility] ([facility]) Erythrocytes [#/volume] in Blood by Automated count 4.29 x10E6/uL 3.8 0-5.30 [facility] Hematocrit [Volume Fraction] of Blood by Automated count 36.1 % 3 5.0-47.0 [facility] ([facility]) Leukocytes [#/volume] in Blood by Automated count 9.0 x10E3/uL 4.3-10 .9 [facility] ([facility]) Erythrocyte mean corpuscular hemoglobin [Entitic mass] by Automated count 26.8 pg 27.5-33.5 Below low normal [facility] ([facility]) Erythrocyte mean corpuscular hemoglobin concentration [Mass/volume] by Automated count 31.9 g/dL 32.0-36.0 Below low normal [facility] ([facility]) Erythrocyte mean corpuscular volume [Entitic volume] by Auto mated count 84.1 fl 82.0-98.0 [facility] ([facility]) Platelets [#/volume] in Blood by Automated count 283 x10E3/uL 130-400 [facility] ([facility]) Erythrocyte distribution width [Ratio] by Automated count 14.3 % 11.5-14.5 [facility] ([facility]) Platelet mean volume [Entitic volume] in Blood by Jakob 9.6 fl 8.6-12.6 [facility] ([facility]) [facility] [address] [address] * [phone] ID Date Data Source [id number] 07/10/2019 03:58:00 PM EDT [facility] ([facility]) Name Value Range Interpretation Code Description Data Socorro rce(s) Supporting Document(s) Glucose [Moles/volume] in Serum or Plasma --1 hour pos t 50 g glucose PO 126 mg/dL [facility] ([facility]) [facility] [address] [place] [address] * Reagin Ab [Presence] in Serum by RPR Laboratory test result 0-0 [facility] ([facility]) [facility] [address] [address] * ID Date Data Source [id number] 07/16/2019 01:13:00 PM EDT [facility] PATIENT: ANAHI HAMPTON LOC: TUCKER BILL# : [id number] : 2000 SEX: FORDERED BY: ELVIA SNOW ORDERED : 07/16/2019 13:11 COLLECTED: 07/10/2019 15:58ORDER : [id number] RECEIVED : 07/10/2019 16:17 TEST NAME RESULTRh IG-full dose [id number] issued 1 vial 07/16/19 13:13 -- Name Value Range Interpretation Code Description Data Socorro rce(s) Supporting Document(s) ID Date Data Source [id number] 07/14/2019 10:13:00 AM EDT [facility] Name Value Range Interpretation Code Description Data Socorro e(s) Supporting Document(s) HEMOGLOBINOPATHY PROFILE SEE BELOW [facility] Hgb Solubility Negati ve Negative RNHgb F 0.0 % 0.0-2.0 [facility] A 97.7 % 96.4-98.8 [facility] S 0.0 % 0.0 [facility] C 0.0 % 0.0 [facility] A2 2.3 % 1.8-3.2 R[facility]gb Variant 0.0 % 0.0 RNInterpretation RNNormal adult hemoglobin present.RN-[facility] [address] [id number] ID Date Data Source [id number] 07/10/2019 05:15:00 PM EDT [facility] PATIENT: ANAHI HAMPTON LOC: GARRETT,,BILL# : [id number] : 2000 SEX: FORDERED BY: ELVIA SNOW ORDERED : 07/10/2019 14:57 COLLECTED: 07/10/2019 15:58ORDER : [id number] RECEIVED : 07/10/2019 16:17 TEST NAME RESULTABO TYPE O 07/10/19 16:59 [facility]PRH TYPE NEG 07/10/19 16:59 BHPANTIBODY SCREEN NEG 07/10/19 17:15 [facility] Name Value Range Interpretation Code Description Data Socorro rce(s) Supporting Document(s) ID Date Data Source [id number] 07/10/2019 05:08:00 PM EDT [facility] Name Value Range Interpretation Code Description Data Socorro rce(s) Supporting Document(s) RPR NON-REACTIVE NON-REACTIVE [facility] [place] [address] * ID Date Data Source [id number] 07/10/2019 04:50:00 PM EDT [facility] Value Range Interpretation Code Description Data Socorro rce(s) Supporting Document(s) GLUCOSE, 1HR 50GP 126 mg/dl < or = 140 [facility] [address] [address] * ID Date Data Source [id number] 07/10/2019 04:23:00 PM EDT [facility] Value Range Interpretation Code Description Data Socorro rce(s) Supporting Document(s) WBC 9.0 x10E3/uL 4.3-10.9 [facility] RBC 4.29 x10E6/uL 3.80-5.30 [facility] Ho spital HEMOGLOBIN 11.5 g/dl 11.8-15.8 L [facility] HEMATOCRIT 36.1 % 35.0-47.0 [facility] MCV 84.1 fl 82.0-98.0 [facility] al MCH 26.8 pg 27.5-33.5 L [facility] MCHC 31.9 g/dl 32.0-36.0 L [facility] RDW 14.3 % 11.5-14.5 [facility] PLATELET COUNT 283 x10E3/uL 130-400 [facility] MPV 9.6 fl 8.6-12.6 [facility], Dept of [address] [address] * ID Date Data Source [id number] 06/25/2019 02:38:15 PM EDT [facility] OBSTETRICAL SONOGRAMClinical History: Fo llow up [...] rce(s) Supporting Document(s) ID Date Data Source [id number] 06/10/2019 11:24:18 AM EST [facility] OBSTETRICAL SONOGRAMClinical History: Ch luís anatomy. No pain. No bleeding. G1, P0. Second trimesterpregnancy. Initial encounter at this institution.Technique: Transabdominal pelvic ultrasound examination was performed. Detailedmeasurements are available upon request and review on the performed obstetricalsonogram worksheet.Comparison: None. Correlation is made with a report from [facility] dated 03/11/2019.Quality assessment: Acceptable.FINDINGS:: There is a [...] been communicated to FILE ROOM via the [employer] system on 06/10/2019 9:24 AM, Message ID [id number].Electronically Signed By: NATALIA ESPARZA MDDate: 06/10/2019 11:22 Name Value Range Interpretation Code Description Data Socorro rce(s) Supporting Document(s) ID Date Data Source [id number] 06/09/2019 11:30:00 AM EST [facility]) Name Value Range Interpretation Code Description Data Socorro rce(s) Supporting Document(s) Screen Interpretation Laboratory test result [facility] ([facility]) Methodology for the test(s) below is for screening purposes only and the reference range for these tests is Negative. Positive results should be considered presumptive. . . Amphetamines Laboratory test result [facility] ([facility]) Screen Cutoff 1000 ng/ml. . Benzodiazepines [Presence] in Urine Laboratory test result [facility] ([facility]) Screen Cutoff 300 ng/ml. . Barbiturates Laboratory test result [facility] ([facility]) Screen Cutoff 200 ng/ml. . Phencyclidine (PCP) Laboratory test result [facility] ([facility]) Screen Cutoff 25 ng/ml. . Benzoylecgonine [Presence] in Urine [facility] Screen Cutoff 300 ng/ml. . Opiates [Presence] in Urine [facility] Screen Cutoff 300 ng/ml. . Tricyclic antidepressants [Presence] in Serum or Plasma Labo ratory test result [facility] ([facility]) Screen Cutoff 500 ng/ml. . R [facility], Dept of Path [address] [place] [address] * [phone] Cannabis (THC) Laboratory test result [facility] ([facility]) Screen Cutoff 50 ng/ml. . ID Date Data Source [id number] 06/09/2019 03:30:00 PM EST [facility] Name Value Range Interpretation Code Description Data Socorro rce(s) Supporting Document(s) SCREEN INTERPRETATION SEE NOTE [facility] Methodology for the test(s) be low is for screening purposes only and the reference range for these tests is Negative. Positive results should be considered presumptive. . . AMPHETAMINES NEGATIVE [facility] Screen Cutoff 1000 ng/ml. . BARBITURATES NEGATIVE [facility] Screen Cutoff 200 ng/ml. . BENZODIAZEPINES NEGATIVE [facility] Screen Cutoff 300 ng/ml. . COCAINE NEGATIVE [facility] al Screen Cutoff 300 ng/ml. . OPIATES NEGATIVE [facility] Screen Cutoff 300 ng/ml. . PHENCYCLIDINE (PCP) NEGATIVE [facility] Screen Cutoff 25 ng/ml. . CANNABIS (THC) NEGATIVE [facility]ital Screen Cutoff 50 ng/ml. . TRICYCLIC ANTIDEPRESSNT NEGATIVE NEGATIVE [facility] Screen Cutoff 500 ng/ml. . R [facility], Dept of Path [address] [place] [address] * ID Date Data Source [id number] 03/11/2019 09:55:00 AM [facility] [address] [place] [address] [phone] NAME SEX PT STATUS ACCOUNT NUMBER [facility] REF [id number] ORDERING PHYSICIAN LOCATION MEDICAL RECORD NO. Cecilia Heck DO [id number] ATTENDING PHYSICIAN DATE OF DATE OF EXAM/TIME Doctor Provided,No Family 2000 03[birth year] TYPE / EXAM US OB Ultrasound <14 [...] Kelsey MD; No Family PHYS Provided Techn: PATRICIA Trans Dt/Tm: Trans by: DT Prt Dt/Tm: [id number]: Total DLP = 0.00 mGy-cm 4170-9934: Total Radiation Dose = 0.0000 mSv Lifetime Dose: 0 mSv Name Value Range Interpretation Code Description Data Socorro rce(s) Supporting Document(s) ID Date Data Source [id number] 03/04/2019 04:36:00 PM [facility] Not Collected Reason:: UNABLE TO LEAVE E NOUGH SPECIMEN TO DO TESTTEST(S) ORDERED:: [facility] Name Value Range Interpretation Code Description Data Socorro rce(s) Supporting Document(s) Laboratory MEDWATCH [facility] Laboratory studies (set) UNABLE TO LEAVE ENOUGH SPECIMEN TO DO TEST [facility] Test(s) that were ordered on thisrequisi ton were not collected. ID Date Data Source [id number] 03/05/2019 01:58:00 PM [facility] Less than 10,000 CFU/MLStaph spp. coag n egProbable contaminants no senst done Method of Collection:: Clean Catch Name Value Range Interpretation Code Description Data Socorro rce(s) Supporting Document(s) ID Date Data Source [id number] 03/04/2019 04:43:00 PM [facility] Less than 10,000 CFU/MLStaph spp. coag n egProbable contaminants no senst done Method of Collection:: Clean Catch Name Value Range Interpretation Code Description Data Socorro rce(s) Supporting Document(s) Color of Urine [facility] Appearance of Urine CLEAR [facility] pH of Urine by Test strip 5.5 5-8 [facility] Specific gravity of Urine by Refractometry 1.031 1.005 -1.030 Abnormal (applies to non-numeric results) [facility] Leukocyte esterase [Presence] in Urine by Test strip NEGAT PA [facility] Nitrite [Presence] in Urine by Test strip NEGATIVE [facility] Protein [Presence] in Urine by Test strip NEGATIVE [facility] Glucose [Mass/volume] in Urine by Automated test strip NEGATIVE NEG ATIVE [facility] Ketones [Presence] in Urine by Test strip NEGATI VE Abnormal (applies to non- numeric results) [facility] Urobilinogen [Presence] in Urine 0.2-1 EU/dl [facility] Bilirubin.total [Presence] in Urine by Automated test strip NEGATIVE [facility] Erythrocytes [#/volume] in Urine by Test strip NEGATIVE NEGATIVE [facility] URINE MICROSCOPIC ADDED NO [facility] ID Date Data Source [id number] 03/04/2019 04:36:00 PM EST [facility] Blood Lead Purpose: IntialBlood Lead Typ e: VenousPatient : NoPatient Race: White\\ Blood Lead Purpose: IntialBlood Lead Typ e: VenousPatient : NoPatient Race: White\\ Blood Lead Purpose: IntialBlood Lead Typ e: VenousPatient : NoPatient Race: White\\ Name Value Range Interpretation Code Description Data Socorro rce(s) Supporting Document(s) Leukocytes [#/volume] in Blood by Automated count 10.8 10*3/uL 4.45-10.71 Above high normal [facility] Erythrocytes [#/volume] in Blood by Automated count 4.99 10*6/uL 4.20 -5.40 N [facility] Hemoglobin [Moles/volume] in Blood 13.4 g/dL 10.7-15.4 [facility] Hematocrit [Volume Fraction] of Blood by Automated count 40.1 % 3 7-47 N [facility] Erythrocyte mean corpuscular volume [Ent itic volume] in Cord blood by Automated count 80.4 fL 80-96 N [facility] ital Erythrocyte mean corpuscular hemoglobin [Entitic mass] by Automated count 26.9 pg 27-31 Below low normal [facility] pital Erythrocyte mean corpuscular hemoglobin concentration [Mass/volume] in Cord blood 33.4 g/dL 33-37 N [facility] ital Erythrocyte distribution width [Entitic volume] by Automated count 14 % 11-15 N [facility] Platelets [#/volume] in Blood by Automated count 256 10*3/uL 130-472 N [facility] Platelet mean volume [Entitic volume] in Blood 8.9 fL 9.1-13. 1 Below low normal [facility] Neutrophils/100 leukocytes in Blood by Automated count 74.6 % 41- 77 N [facility] Neutrophils [#/volume] in Blood by Automated count 8.0 U 1.7-7.6 Above high normal [facility] Lymphocytes/100 leukocytes in Blood by Automated count 19.0 % 14- 46 N [facility] Lymphocytes [#/volume] in Blood by Automated count 2.1 U 0.6-4.6 N [facility] Monocytes/100 leukocytes in Blood by Automated count 5.8 % 4-12 N [facility] Monocytes [#/volume] in Blood by Automated count 0.6 U 0.2-1.2 N [facility] Eosinophils/100 leukocytes in Blood by Automated count 0.1 % 0-7 N [facility] Eosinophils [#/volume] in Blood by Automated count 0.0 U 0.0-0.5 N [facility] Basophils/100 leukocytes in Blood by Automated count 0.3 % 0.4-1.3 Below low normal [facility] Basophils [#/volume] in Blood by Automated count 0.0 U 0.0-0.2 N [facility] NUCLEATED RED BLOOD CELL 0 % [facility] NUCLEATED RED BLOOD CELL# 0 U [facility] Immature granulocytes [Presence] in Blood by Automated count 0-2 N [facility] Immature granulocytes [#/volume] in Blood by Automated count 0.0 U 0-0.1 N [facility] Manual Differential panel - Blood NO [facility] ID Date Data Source [id number] 03/04/2019 05:11:00 PM [facility] Blood Lead Purpose: IntialBlood Lead Typ [...] <= 0.005 mIU/L 0.71 u[iU]/mL 0.35-5.50 N [facility] al ID Date Data Source [id number] 03/06/2019 06:05:00 AM [facility] Blood Lead Purpose: IntialBlood Lead Typ e: VenousPatient : NoPatient Race: White\\ Blood Lead Purpose: IntialBlood Lead Typ e: VenousPatient : NoPatient Race: White\\ Blood Lead Purpose: IntialBlood Lead Typ e: VenousPatient : NoPatient Race: White\\ Name Value Range Interpretation Code Description Data Socorro rce(s) Supporting Document(s) Hepatitis C virus Ab Signal/Cutoff in Serum or Plasma by Immunoassay 0.2 s/co ratio 0.0-0.9 [facility] l Negati ve: < 0.8 Indeterminate: 0.8 - 0.9 Positive: > 0.9 The CDC recommends that a positive HCV antibody result be followed up with a HCV Nucleic Acid Amplification test ([id number]).Performed at: [address] [id number] Director: Alysa Gonzalez MD, Phone: [phone] ID Date Data Source [id number] 03/06/2019 08:06:00 PM [facility] Blood Lead Purpose: IntialBlood Lead Typ e: VenousPatient : NoPatient Race: White\\ Blood Lead Purpose: IntialBlood Lead Typ e: VenousPatient : NoPatient Race: White\\ Blood Lead Purpose: IntialBlood Lead Typ e: VenousPatient : NoPatient Race: White\\ Name Value Range Interpretation Code Description Data Socorro rce(s) Supporting Document(s) HIV 1+2 Ab+HIV1 p24 Ag [Presence] in Serum or Plasma by Immu noassay Non Reactive [facility] Performed at: - [facility] [address] [id number] Director: Alysa Gonzalez MD, Phone: [phone] at: - [facility] [address] [id number] Director: Agnes Baker MD, Phone: [phone] Treponema pallidum Ab [Presence] in Serum by Immunoassay N on Reactive [facility] Please note reference in terval change Hepatitis B virus surface Ag [Presence] in Serum or Plasma b y Immunoassay Negative [facility] Rubella virus IgG Ab [Units/volume] in Serum or Plasma by Immunoassay 2.65 index Immune >0.99 [facility] Non-immu ne <0.90 Equivocal 0.90 - 0.99 Immune >0.99 ID Date Data Source [id number] 03/06/2019 06:05:00 AM [facility] Blood Lead Purpose: IntialBlood Lead Typ e: VenousPatient : NoPatient Race: White\\ Blood Lead Purpose: IntialBlood Lead Typ e: VenousPatient : NoPatient Race: White\\ Blood Lead Purpose: IntialBlood Lead Typ e: VenousPatient : NoPatient Race: White\\ Name Value Range Interpretation Code Description Data Socorro rce(s) Supporting Document(s) Lead [Mass/volume] in Venous blood <1 ug/dL 0-4 [facility] Analysis by inductively coupled plasma/m assspectrometry (ICP/MS) Environmental Exposure: WHO Recommendation <20 Occupational Exposure: [employer] Lead Std 40 LIU 30 Detection Limit = 1 ID Date Data Source [id number] 03/06/2019 06:05:00 AM [facility] Blood Lead Purpose: IntialBlood Lead Typ e: VenousPatient : NoPatient Race: White\\ Blood Lead Purpose: IntialBlood Lead Typ e: VenousPatient : NoPatient Race: White\\ Blood Lead Purpose: IntialBlood Lead Typ e: VenousPatient : NoPatient Race: White\\ Name Value Range Interpretation Code Description Data Socorro rce(s) Supporting Document(s) Varicella zoster virus IgG Ab [Units/volume] in Serum by Imm unoassay 1445 index Immune >165 [facility] Negative <135 Equivocal 135 - 165 Positive >165A positive result generally indicates exposure to thepathogen or administration of specific immunoglobulins,but it is not indication of active infection or stageof disease. ID Date Data Source [id number] 03/04/2019 06:13:00 PM [facility] @03/04/19 1813: Pre Op? added. RFLXG = T RX.@03/04/19 1813: Pretransfusion? added. RFLXG = TRX.@03/04/19 181: Inpatient? added. RFLXG = TRX. Name Value Range Interpretation Code Description Data Socorro rce(s) Supporting Document(s) Blood bank studies (set) No A [facility] @To complete the specimen, you MUST pull the specimen back@up and answer the Preop, Transfusion and Inpatient@questions. Perform a second Type if needed. Blood Type [facility] Antibody Screen (PN) NEGATIVE [facility] ID Date Data Source [id number] 03/04/2019 06:13:00 PM [facility] @03/04/19 1813: Pre Op? added. RFLXG = T RX.@03/04/191812: Pretransfusion? added. RFLXG = TRX.@03/04/19 181: Inpatient? added. RFLXG = TRX. Name Value Range Interpretation Code Description Data Socorro rce(s) Supporting Document(s) Pre Op? No [facility] ID Date Data Source [id number] 03/04/2019 06:13:00 PM [facility] @03/04/19 1813: Pre Op? added. RFLXG = T RX.@03/04/193: Pretransfusion? added. RFLXG = TRX.@03/04/19 181: Inpatient? added. RFLXG = TRX. Name Value Range Interpretation Code Description Data Socorro rce(s) Supporting Document(s) Pretransfusion? No [facility] ID Date Data Source [id number] 03/04/2019 06:13:00 PM [facility] @03/04/19 1813: Pre Op? added. RFLXG = T RX.@03/04/19 1813: Pretransfusion? added. RFLXG = TRX.@03/04/19 1813: Inpatient? added. RFLXG = TRX. Name Value Range Interpretation Code Description Data Socorro rce(s) Supporting Document(s) Inpatient? No [facility] ID Date Data Source [id number] 03/07/2019 08:06:00 PM EST [facility] NegativeNegativePerformed at: [facility] [address] [id number] Director: Alysa Gonzalez MD, Phone: [phone] Name Value Range Interpretation Code Description Data Socorro rce(s) Supporting Document(s) Trichomonas vaginalis DNA [Presence] in Unspecified specimen by Probe and target amplification method Negative [facility] Performed at: [facility] [address] [id number] Director: Alysa Gonzalez MD, Phone: [phone] Gardnerella vaginalis rRNA [Presence] in Genital specimen by DNA probe Negative [facility] Manisha sp rRNA [Presence] in Vaginal fluid by DNA probe N egative [facility] ID Date Data Source [id number] 03/07/2019 08:06:00 PM EST [facility] NegativeNegativePerformed at: [facility] [address] [id number] Director: Alysa Gonzalez MD, Phone: [phone] Name Value Range Interpretation Code Description Data Socorro rce(s) Supporting Document(s) Procedure Social History Code Duration Value Status Description Data Source(s ) 09/25/2019 12:00:00 AM EDT completed [facility] 03/04/2019 03:24:00 PM EST Former smoker completed Former smoker [facility] Smoking 03/04/2019 03:24:00 PM EST Former smoker completed Former smoker [facility] Vital Signs ID Date Data Source [id number] Name Value Range Interpretation Code Description Data Source(s) Diastolic blood pressure 90 mm[Hg] 90 mm[Hg] [facility] ([facility]) Systolic blood pressure 124 mm[Hg] 124 mm[Hg] [facility] ([facility]) Body weight 265.00 [lb_av] 265.00 [lb_av] [facility] ([facility]) Diastolic blood pressure 78 mm[Hg] 78 mm[Hg] [facility] ([facility]) Systolic blood pressure 110 mm[Hg] 110 mm[Hg] [facility] ([facility]) Body weight 268.00 [lb_av] 268.00 [lb_av] [facility] ([facility]) Diastolic blood pressure 82 mm[Hg] 82 mm[Hg] [facility] ([facility]) Systolic blood pressure 110 mm[Hg] 110 mm[Hg] [facility] ([facility]) Body weight 265.00 [lb_av] 265.00 [lb_av] [facility] ([facility]) Diastolic blood pressure 70 mm[Hg] 70 mm[Hg] [facility] ([facility]) Systolic blood pressure 104 mm[Hg] 104 mm[Hg] [facility] ([facility]) Body weight 264.00 [lb_av] 264.00 [lb_av] [facility] ([facility]) Diastolic blood pressure 66 mm[Hg] 66 mm[Hg] [facility] ([facility]) Systolic blood pressure 104 mm[Hg] 104 mm[Hg] [facility] ([facility]) Body weight 253.00 [lb_av] 253.00 [lb_av] [facility] ([facility]) Diastolic blood pressure 102 mm[Hg] 102 mm[Hg] [facility] ([facility]) Systolic blood pressure 148 mm[Hg] 148 mm[Hg] [facility] ([facility]) Body weight 248.00 [lb_av] 248.00 [lb_av] [facility] ([facility]) Diastolic blood pressure 64 mm[Hg] 64 mm[Hg] [facility] ([facility]) Systolic blood pressure 104 mm[Hg] 104 mm[Hg] [facility] ([facility]) Body weight 247.00 [lb_av] 247.00 [lb_av] [facility] ([facility]) Diastolic blood pressure 60 mm[Hg] 60 mm[Hg] [facility] ([facility]) Systolic blood pressure 104 mm[Hg] 104 mm[Hg] [facility] ([facility]) Body weight 246.00 [lb_av] 246.00 [lb_av] [facility] ([facility]) Body weight 236.00 [lb_av] 236.00 [lb_av] [facility] ([facility]) Body height [Percentile] 86 % 86 % [facility] ([facility] Body height 67 [in_i] 67 [in_i] [facility] ([facility]) 5'7" Diastolic blood pressure 70 mm[Hg] 70 mm[Hg] [facility] ([facility]) Systolic blood pressure 110 mm[Hg] 110 mm[Hg] [facility] ([facility]) Body mass index (BMI) [Ratio] 37.0 kg/m2 37.0 k g/m2 [facility] ([facility]) Body mass index (BMI) [Percentile] 98 % 9 8 % [facility] ([facility]) Body height [Percentile] 81 % 81 % [facility] ([facility]) Body height 66.50 [in_i] 66.50 [in_i] [facility] ([facility]) 5'6.50" Body weight 106.199 kg 106.199 kg [facility] ([facility]) Body weight 234.12 [lb_av] 234.12 [lb_av] [facility] ([facility]) Oxygen saturation in Arterial blood by Pulse oximetry 98 % 98 % [facility] ([facility]) Respiratory rate 20 /min 20 /min [facility] ( [facility]) Body temperature 98.1 [degF] 98.1 [degF] [facility] ([facility]) Heart rate 107 /min 107 /min [facility] ([facility]) Diastolic blood pressure 83 mm[Hg] 83 mm[Hg] [facility] ([facility]) Systolic blood pressure 121 mm[Hg] 121 mm[Hg] [facility] ([facility]) ID Date Data Source [id number] 10/06/2019 04:12:19 PM EDT [facility] Name Value Range Interpretation Code Description Data Source(s) WEIGHT RECORDED 117.93 KG 117.93 KG [facility] Height 167.64 CM 167.64 CM [facility] ID Date Data Source [id number] 11/10/2019 01:28:46 PM EDT [facility] Name Value Range Interpretation Code Description Data Source(s) status [Interpretation] - Reported Y Y [facility]
== END 2020-04-28 15:44 | disposition home or self-care (01) ==
LOC: M ED 15:10
DX: K04.7 Periapical abscess without sinus (principal); K02.9 Dental caries, unspecified; Z88.8 Allergy status to other drugs, medicaments and biological substances

== ENCOUNTER → 2020-11-04 | Outpatient (CLI) | payer OTHER ==
[~2020-11-04] MED LIST changes: +ARIP10TA32 PO; -ARIP1TAB PO; +AUGM875T28 PO; +EMTR1TAB16 PO; +FLAG500T PO; +IBUP80TA PO; +NITR1CAP11 PO; +RALT40TA PO
--- NOTE | 2020-11-04 22:04 | REPVR ---
PROCEDURE INFORMATION: Exam: XR Left Finger(s) Exam date and time: 11/04/2020 8:44 PM Age: 19 years old Clinical indication: Pain; Finger(s); Left; Additional info: Finger shut in car door, left 4th finger TECHNIQUE: Imaging protocol: XR Left fingers. Views: Minimum 2 views. COMPARISON: CR ELBOW COMPLETE 12/01/2016 6:20 PM FINDINGS: Bones/joints: Joint spaces are normal. No fracture or malalignment. Soft tissues: Normal. IMPRESSION: No fracture or malalignment. Electronically signed by: Ian Asher On 11/04/2020 22:03:51 PM
== END ==
LOC: M RAD 20:17
PROVIDERS: ATTEND Physician Assistant
DX: S60.945A Unspecified superficial injury of left ring finger, initial encounter (principal); W23.0XXA Caught, crushed, jammed, or pinched between moving objects, initial encounter; Y92.9 Unspecified place or not applicable; Y93.9 Activity, unspecified; Y99.9 Unspecified external cause status

== ENCOUNTER 2020-11-06 01:31 | Emergency (ER) | payer OTHER ==
[~2020-11-06] VITALS: Ht 167.6 cm; Wt 100.0 kg
[~2020-11-06 01:31] MED LIST changes: -EMTR1TAB16 PO; -FLAG500T PO; -NITR1CAP11 PO; -RALT40TA PO
[2020-11-06 01:32] VITALS: BP 146/97
[2020-11-06 02:31] LABS: URINE PREG TEST POSITIVE (NEGATIVE)
[2020-11-06 04:05] LABS: GC DNA AMPLIFICATION NEGATIVE (NEGATIVE)
[2020-11-06] MEDS ORDERED: AZITHROMYCIN 250MG TABLET PO ONE (07:35)
[2020-11-06] MEDS ORDERED: EXPOSURE KIT-ADULT 7 DAY SUPPLY PO ONE (07:35)
[2020-11-06] MEDS ORDERED: cefTRIAXone SOD 250MG VIAL (J0696 PER 250MG) IM ONE (07:35)
[2020-11-06] MEDS ORDERED: LIDOCAINE 1% SDV 5ML VIAL DILUENT ONE (07:35)
[2020-11-06] MEDS ORDERED: RALT40TA PO (07:36)
[2020-11-06] MEDS ORDERED: EMTR1TAB16 PO (07:36)
[2020-11-06 07:37] LABS: BASO # 0.1 10^3/uL (0.0-0.2); BASO % 0.5 % (0.0-1.0); EOS # 0.1 10^3/uL (0.0-0.5); EOS % 1.3 % (0.0-3.0); HEMATOCRIT 39.9 % (36.0-47.0); HEMOGLOBIN 12.6 g/dl (12.0-15.5); LYMPH % 26.7 % (24.0-44.0); MEAN CORPUSCULAR HEMOGLOBIN 25.1 pg (27.0-33.0); MEAN CORPUSCULAR HGB CONC 31.6 g/dl (32.0-36.5); MEAN CORPUSCULAR VOLUME 79.5 fl (80.0-96.0); MONO # 0.6 10^3/uL (0.0-0.8); MONO % 5.7 % (2.0-8.0); NEUTROPHILS # 7.3 10^3/uL (1.5-8.5); NEUTROPHILS % 65.5 % (36.0-66.0); PLATELET COUNT, AUTOMATED 290 10^3/uL (150-450); RED BLOOD COUNT 5.02 10^6/uL (4.00-5.40); WHITE BLOOD COUNT 11.1 10^3/uL (4.0-10.0)
[2020-11-06] MEDS ORDERED: FLAG500T PO (07:37)
[2020-11-06 07:59] LABS: ALBUMIN 3.4 GM/DL (3.2-5.2); ALT/SGPT 15 U/L (12-78); BILIRUBIN,TOTAL 0.2 MG/DL (0.2-1.0); BLOOD UREA NITROGEN 11 MG/DL (7-18); CALCIUM LEVEL 8.5 MG/DL (8.5-10.1); CARBON DIOXIDE LEVEL 25 MEQ/L (21-32); CHLORIDE LEVEL 110 MEQ/L (98-107); CREATININE FOR GFR 0.58 MG/DL (0.55-1.30); GLUCOSE, FASTING 88 MG/DL (70-100); HCG, SERUM QUALITATIVE POSITIVE (NEGATIVE); POTASSIUM SERUM 4.1 MEQ/L (3.5-5.1); SODIUM LEVEL 140 MEQ/L (136-145); TOTAL PROTEIN 6.9 GM/DL (6.4-8.2)
[2020-11-06] MEDS ORDERED: NITR1CAP11 PO (08:10)
[2020-11-06] MEDS ORDERED: TRUVADA 200MG/300MG TABLET PO ONE (08:55)
[2020-11-06] MEDS ORDERED: RALTEGRAVIR 400 MG TAB (ISENTRESS) PO ONE (08:55)
[2020-11-07] MEDS ORDERED: TRUVADA 200MG/300MG TABLET PO SCH
[2020-11-07] MEDS ORDERED: RALTEGRAVIR 400 MG TAB (ISENTRESS) PO SCH
[2020-11-08 10:21] LABS: HEPATITIS B SURFACE ANTIBODY NEGATIVE (POSITIVE)
[2020-11-08 10:30] LABS: HEPATITIS B SURFACE ANTIGEN NEGATIVE (NEGATIVE)
[2020-11-08 10:58] LABS: HEPATITIS C VIRUS ABY INDEX 0.1 INDEX (<0.8)
[2020-11-08 10:59] LABS: HIV 1&2 SCREEN CENTAUR NEGATIVE (NEGATIVE)
== END 2020-11-06 09:21 | disposition home or self-care (01) ==
LOC: M ED 01:31
DX: Z04.41 Encounter for examination and observation following alleged adult rape (principal); R82.71 Bacteriuria; Z3A.00 Weeks of gestation of pregnancy not specified
CPT/HCPCS: 36415; 80053; 81001; 84703; 85025; 86706; 86780; 86803; 87340; 87389; 87491; 87591; 96372; 99283; J0696

== ENCOUNTER 2022-12-19 09:03 | Emergency (ER) | payer OTHER ==
[~2022-12-19] VITALS: Ht 167.6 cm; Wt 108.5 kg
[~2022-12-19 09:03] MED LIST changes: +EMTR1TAB16 PO; +FLAG500T PO; +FLUT50SP17; -FLUTISP; +METH36TA6 PO; -METH36TA7 PO; +NITR1CAP11 PO; +RALT40TA PO
[2022-12-19 10:32] LABS: BASO % 0.3 % (0.0-1.0); EOS # 0.1 10^3/uL (0.0-0.5); HEMATOCRIT 41.1 % (36.0-47.0); HEMOGLOBIN 13.3 g/dl (12.0-15.5); LYMPH # 1.5 10^3/uL (1.5-5.0); LYMPH % 13.9 % (24.0-44.0); MEAN CORPUSCULAR HEMOGLOBIN 27.1 pg (27.0-33.0); MEAN CORPUSCULAR HGB CONC 32.4 g/dl (32.0-36.5); MEAN CORPUSCULAR VOLUME 83.9 fl (80.0-96.0); MONO # 0.5 10^3/uL (0.0-0.8); MONO % 4.8 % (2.0-8.0); NEUTROPHILS # 8.4 10^3/uL (1.5-8.5); NEUTROPHILS % 79.7 % (36.0-66.0); PLATELET COUNT, AUTOMATED 270 10^3/uL (150-450); WHITE BLOOD COUNT 10.5 10^3/uL (4.0-10.0)
[2022-12-19 10:51] LABS: BLOOD UREA NITROGEN 12 MG/DL (9-23); CALCIUM LEVEL 8.4 MG/DL (8.5-10.1); CARBON DIOXIDE LEVEL 28 MMOL/L (20-31); CHLORIDE LEVEL 106 MMOL/L (98-107); CREATININE FOR GFR 0.68 MG/DL (0.55-1.30); GLOMERULAR FILTRATION RATE > 60.0 (>60); GLUCOSE, FASTING 100 MG/DL (60-100); POTASSIUM SERUM 4.5 MMOL/L (3.5-5.1); SODIUM LEVEL 141 MMOL/L (136-145)
[2022-12-19 10:55] LABS: HCG, SERUM QUALITATIVE NEGATIVE (NEGATIVE)
[2022-12-19] MEDS ORDERED: ISOVUE-370 76% 100ML VIAL As Ordered ONE (11:00)
[2022-12-19] MEDS ORDERED: AMPICILLIN SOD/SULBACTAM SOD 3 GM in D5W MINI-BAG PLUS 100 ML IV ONE (11:55)
[2022-12-19] MEDS ORDERED: AMOX875T2 PO (13:15)
[2022-12-19] MEDS ORDERED: CLEO300C2 PO (13:18)
[2022-12-19 13:30] VITALS: BP 109/66
[2022-12-19 13:40] VITALS: TEMP 97.7; O2SAT 99
== END 2022-12-19 13:48 | disposition home or self-care (01) ==
LOC: M ED 09:03
DX: K04.7 Periapical abscess without sinus (principal); F90.9 Attention-deficit hyperactivity disorder, unspecified type; F84.0 Autistic disorder; Z88.8 Allergy status to other drugs, medicaments and biological substances; Z79.2 Long term (current) use of antibiotics; Z79.1 Long term (current) use of non-steroidal anti-inflammatories (NSAID)
CPT/HCPCS: 70487; 80048; 84703; 85025; 96365; 99284; J0295; Q9967

== ENCOUNTER 2023-11-13 20:45 | Emergency (ER) | payer OTHER ==
[~2023-11-13] VITALS: Ht 167.6 cm; Wt 94.2 kg
[~2023-11-13 20:45] MED LIST changes: +AMOX875T2 PO; +CLEO300C2 PO; -FLUT50SP17; +FLUTISP; +NITR100C3 PO; -NITR1CAP11 PO
[2023-11-13 20:46] VITALS: BP 120/76; TEMP 98; O2SAT 100
== END 2023-11-14 00:47 | disposition left against medical advice (07) ==
LOC: M ED 20:45
DX: Z53.21 Procedure and treatment not carried out due to patient leaving prior to being seen by health care provider (principal)

== ENCOUNTER → 2024-01-16 | Outpatient (REF) | payer OTHER ==
[~2024-01-16] MED LIST changes: -ARIP10TA32 PO; +ARIP10TA63 PO
== END ==
LOC: M LAB REF 16:21
PROVIDERS: ATTEND Physician Assistant
DX: R05.9 Cough, unspecified (principal)

== ENCOUNTER → 2024-04-24 | Outpatient (CLI) | payer OTHER ==
[2024-04-24 11:10] LABS: ALBUMIN 3.8 G/DL (3.2-5.2); ALKALINE PHOSPHATASE 69 U/L (35-104); ALT/SGPT 14 U/L (7.0-40); AST/SGOT 10 U/L (<34); BILIRUBIN,TOTAL 0.3 MG/DL (0.3-1.2); BLOOD UREA NITROGEN 11 MG/DL (9-23); CALCIUM LEVEL 8.5 MG/DL (8.5-10.1); CARBON DIOXIDE LEVEL 25 MMOL/L (20-31); CHLORIDE LEVEL 108 MMOL/L (98-107); CREATININE FOR GFR 0.61 MG/DL (0.55-1.30); GLOMERULAR FILTRATION RATE > 60.0 (>60); GLUCOSE, FASTING 86 MG/DL (60-100); POTASSIUM SERUM 4.3 MMOL/L (3.5-5.1); SODIUM LEVEL 141 MMOL/L (136-145); TOTAL PROTEIN 6.9 G/DL (5.7-8.2)
[2024-04-24 11:14] LABS: APPEARANCE, URINE HAZY (CLEAR); BACTERIA, URINE AUTO 1+ (NEGATIVE); BILIRUBIN, URINE AUTO NEGATIVE (NEGATIVE); BLOOD, URINE BLOOD 1+ (NEGATIVE); COLOR, URINE YELLOW (YELLOW); GLUCOSE, URINE (UA) AUTO NEGATIVE (NEGATIVE); KETONE, URINE AUTO NEGATIVE (NEGATIVE); LEUKOCYTE ESTERASE, URINE AUTO NEGATIVE (NEGATIVE); MUCUS, URINE SMALL (NEGATIVE); NITRITE, URINE AUTO NEGATIVE (NEGATIVE); PROTEIN, URINE AUTO NEGATIVE (NEGATIVE); RBC, URINE AUTO 2 /HPF (0-3); SPECIFIC GRAVITY URINE AUTO 1.014 (1.002-1.035); SQUAMOUS EPITHELIAL CELL UR AU 7 /HPF (0-6); THYROID STIMULATING HORMONE 1.303 uIU/ML (0.55-4.78); UROBILINOGEN, URINE AUTO 0.2 mg/dL (0.0-2.0); WBC, URINE AUTO 2 /HPF (0-3)
== END ==
LOC: M RAD 09:28
PROVIDERS: ATTEND Physician Assistant
DX: R05.9 Cough, unspecified (principal); R50.9 Fever, unspecified; R11.2 Nausea with vomiting, unspecified; R19.7 Diarrhea, unspecified; E04.9 Nontoxic goiter, unspecified

== ENCOUNTER 2024-11-23 04:13 | Emergency (ER) | payer OTHER ==
[~2024-11-23] VITALS: Ht 167.6 cm; Wt 95.5 kg
[~2024-11-23 04:13] MED LIST changes: +LAMO-18 PO; -LAMO25TA4 PO
[2024-11-23 04:15] VITALS: BP 130/81; TEMP 97; O2SAT 97
== END 2024-11-23 04:36 | disposition left against medical advice (07) ==
LOC: M ED 04:13
DX: Z53.21 Procedure and treatment not carried out due to patient leaving prior to being seen by health care provider (principal)

== ENCOUNTER → 2024-12-28 | Outpatient (REF) | payer OTHER | LOC: M LAB REF 17:23 | PROVIDERS: ATTEND Physician Assistant | DX: B34.9 Viral infection, unspecified (principal) ==

== ENCOUNTER → 2025-01-14 | Outpatient (REF) | payer OTHER | LOC: M LAB REF 16:51 | PROVIDERS: ATTEND Nurse Practitioner Family | DX: J00 Acute nasopharyngitis [common cold] (principal) ==